=== PATIENT | male | born 1945 | race African-American/Black ===

== ENCOUNTER 2017-01-08 17:43 | Emergency (ER) | payer OTHER ==
[~2017-01-08] VITALS: Ht 180.3 cm; Wt 158.8 kg
[2017-01-08 17:52] VITALS: BP 143/84
--- NOTE | 2017-01-08 18:05 | ED GENERAL ADULT ---
History of Present Illness General Chief Complaint: Lower Extremity Problems Stated Complaint: RT LEEG PIAN AND SWELLING ?BUG BITE Source: patient Exam Limitations: no limitations Vital Signs & Intake/Output Vital Signs & Intake/Output Vital Signs Date Time Temp Pulse Resp B/P B/P Pulse O2 O2 Flow FiO2 Mean Ox Delivery Rate 01/08 1752 97.9 92 18 143/84 98 Room Air Allergies Coded Allergies: NO KNOWN ALLERGIES (01/20/12) Per STS nurse Lety. -- Vicky 01/20/12 Triage Note: PT STATES THAT HE WAS OUTSIDE MONDAY WHEN HE FELT SOMETHING BITE HIM ON HIS R MENON,. COMPLAINS OF REDNESS AND SWELLING THAT STARTED MONDAY. DENIES PAIN AT THIS TIME. Triage Nurses Notes Reviewed? yes HPI: 71 y/o male with h/o HTN and HLD presenting with RLE pain/redness/swelling s/p being bite by an insect 2 days ago. States that he felt the bite occur, but did not actually see an insect. Reports the insect bite site has been draining clear to yellow liquid. Denies fevers, nausea, vomiting. No h/o diabetes. (GETACHEW VANG,YUMIKO) Reconcile Medications Cephalexin (Keflex) 500 MG CAPSULE 1 CAP PO 4 TIMES/DAY cellulitis (JOSE EDUARDO PADILLA,BATOOL) Past History Travel History Traveled to [place] past 21 day No Medical History Any Pertinent Medical History? 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 No (GETACHEW VANG,YUMIKO) Review of Systems Review of Systems Constitutional: Reports: no symptoms. EENTM: Reports: no symptoms. Respiratory: Reports: no symptoms. Cardiovascular: Reports: edema. Denies: chest pain, syncope. GI: Reports: no symptoms. Genitourinary: Reports: no symptoms. Musculoskeletal: Reports: no symptoms. Skin: Reports: see HPI, erythema. Neurological/Psychological: Reports: no symptoms. Hematologic/Endocrine: Reports: no symptoms. Immunologic/Allergic: Reports: no symptoms. (YUMIKO CHILEL PA-C) Physical Exam Physical Exam General Appearance: well developed/nourished, no apparent distress, alert, awake , comfortable Head: atraumatic Respiratory: normal breath sounds, lungs clear Cardiovascular: regular rate/rhythm, normal peripheral pulses Extremities: Subcentimeter wound to anterior lower aspect of RLE with clear drainaing and surroudning erythema. The RLE is edematous, with no increased warmth. No calf TTP, neg linh's sign. Palpable DP pulse. Neurologic/Psych: awake, alert, oriented x 3, normal gait, normal mood/affect Skin: warm/dry Core Measures ACS in differential dx? No CVA/TIA Diagnosis: No Severe Sepsis Present: No Septic Shock Present: No (YUMIKO CHILEL PA-C) Progress Differential Diagnoses I considered the following diagnoses in my evaluation of the patient: [ cellulitis vs DVT] Plan of Care: Exam consistent with cellulitis with source likely from insect bite. Will tx with keflex. Low concern for DVT has the pt has no h/o of blood clots, no recent surgery or travel, no hormone use, no cigarette smoking, no family h/o blodo clots, and the exam is consistent with infectious source of swelling. Initial ED EKG: none (YUMIKO CHILEL PA-C) Departure Departure Disposition: HOME OR SELF CARE Condition: Stable Clinical Impression Primary Impression: Cellulitis Referrals: AMRITA PADILLA,WINIFRED Garcia (PCP/Family) Additional Instructions: Take 500mg keflex 4 times daily for 7 days. Keep the wound clean and dry. Follow up with your primary care provider for re-evaluation. Return to the ER for any new or worsening symptoms. 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 I have also reviewed all the pertinent lab results and diagnostic results. I agree with the findings and the plan of care as documented in the PA's/RADIOPHONE OPERATOR's documentation. [] I have reviewed the ED Record and agree with the PA's/RADIOPHONE OPERATOR's documentation. [] Additions or exceptions (if any) to the PAs/RADIOPHONE OPERATOR's note and plan are summarized below: [] (JOSE EDUARDO PADILLA,BATOOL) Critical Care Note Critical Care Note Critical Care Time: non-applicable (GETACHEW VANG,YUMIKO)
[2017-01-08] MEDS ORDERED: KEFLEX500 M1 PO (18:25)
== END 2017-01-08 18:39 ==
LOC: ERH 17:43
DX: L03.115 Cellulitis of right lower limb (principal)

== ENCOUNTER 2017-07-11 09:25 | Inpatient (IN) | payer OTHER ==
[~2017-07-11] VITALS: Ht 172.7 cm; Wt 81.6 kg
[~2017-07-11 09:25] MED LIST: KEFLEX500 M1 PO; PRILOSEC OTC20 M1 PO; TAMSULOSIN HCL0.4 M1 PO
--- NOTE | 2017-07-11 09:56 | ED SYNCOPE COMPLAINT ---
History of Present Illness General Chief Complaint: Syncope and Near-Syncope Stated Complaint: SYNCOPE Source: patient, family, old records, EMS Exam Limitations: no limitations Allergies Coded Allergies: NO KNOWN ALLERGIES (01/20/12) Per STS nurse Lety. -- RoddyLindsay 01/20/12 Triage Note: PT BIBA FROM DR OFFICE AFTER HAVING 30 SECOND SYNCOPAL EPISODE THERE. PT DENIES CP/SOB. STATES HE HAS HAD THESE EPISODES IN THE PAST. HX OF TRIPLE BYPASS ON 05/30/17. HX OF A-FIB Triage Nurses Notes Reviewed? yes Timing: single episode today Precipitating Factors: none Context: became dizzy/fainted HPI: Mr Ames is a 72 y/o AA gentleman with a PMH of angina, HFrEF with LVEF 35% on recent echo, CAD evaluated at for those symptoms and found to have diffuse EKG changes, transferred to [facility] with follow-up cardiac catheterization revealing severe L main and triple-vessel disease, s/p triple vessel CABG on 06/04/2017 with LARSEN to LAD, vein graft to marginal and PDA, postprocedure, complicated with atrial fibrillation and renal insufficiency. Additional PMH includes GERD, achalasia of the esophagus, osteoporosis, diverticulosis, Medications at discharge from [facility] included amiodarone, valsartan, furosemide 40 MG, potassium supplementation, metoprolol 100 mg XL, aspirin and eliquis. He was BIBA from his ultrasound technol's office (Dr. Jarvis) today after a syncopal episode. His endorses a similar episode on June 09 while driving him to a follow -up appointment when he exhibited sudden onset generalized shaking, eyes rolled back, lasting 2 minutes with what she describes as a post ictal episode with fatigue. Follow-up workup at [facility] was unremarkable with no recurrence of symptoms. This morning while seated at the ultrasound technol's office he developed a lateral gaze and became unresponsive exhibiting what appeared to be a seizure, recovery noted within 30 secs. No tongue biting, loss of bowel or bladder function or postictal symptoms. No changes noted on EKG with sinus rhythm and RBBB, 97% on RA, accuchek 127. Patient's states that his systolic blood pressures at home run in the 110's but this morning was 94mmHg. His only recent complaints include fatigue and loss of appetite, current weight 292lbs down from 320lbs. ROS: He denies any headache, blurry vision, nausea, chest pain, palpitations, shortness of breath, recent symptoms of orthopnea/PND, worsening lower extremity swelling, fevers or chills. Echocardiogram from 06/04/2017 LVEF 40%, LVEF during cardiac catheterization 35% . (Enoc Brunson MD) Vital Signs & Intake/Output Vital Signs & Intake/Output Vital Signs Date Time Temp Pulse Resp B/P B/P Pulse O2 O2 Flow FiO2 Mean Ox Delivery Rate 07/11 1543 98.6 62 12 113/52 993 Room Air 07/11 1336 97.7 68 18 140/72 98 07/11 1217 99 Room Air 07/11 1116 66 18 135/71 99 Room Air 07/11 0932 97.0 67 20 97/53 95 Room Air Reconcile Medications Amiodarone (Cordarone) 200 MG TAB 100 MG PO DAILY CARDIAC (Reported) Apixaban (Eliquis) 2.5 MG TABLET 1 TAB PO BID BLOOD THINNER (Reported) Aspirin (Ecotrin*) 81 MG TABLET.DR 1 TAB PO DAILY CARDIAC (Reported) Atorvastatin Calcium 80 MG TABLET 1 TAB PO DAILY CHOLESTEROL (Reported) Esomeprazole (Nexium) 40 MG CAPSULE.DR 1 TAB PO DAILY GERD (Reported) Metoprolol Succ XL (Toprol XL) 100 MG TAB.ER.24H 1 TAB PO DAILY HTN (Reported ) Tamsulosin HCl 0.4 MG CAP.ER.24H 1 CAP PO DAILY URINE (Reported) Tamsulosin HCl (Flomax) 0.4 MG CAP.ER.24H 1 TAB PO DAILY BPH (Reported) (Albert Varela MD) Past History Travel History Traveled to [place] past 21 day No Medical History Any Pertinent Medical History? 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 No (Enoc Brunson MD) Review of Systems Review of Systems Constitutional: Reports: see HPI. EENTM: Reports: blurred vision. Respiratory: Reports: no symptoms. Cardiovascular: Reports: no symptoms. GI: Reports: no symptoms. Genitourinary: Reports: no symptoms. Musculoskeletal: Reports: see HPI. Skin: Reports: no symptoms. Neurological/Psychological: Reports: see HPI. (Enoc Brunson MD) Review of Systems All Other Systems: Reviewed and Negative (Albert Varela MD) Physical Exam Physical Exam General Appearance: no apparent distress, alert Head: normal appearance Eyes: Bilateral: PERRL, EOMI. Ears, Nose, Throat: normal ENT inspection, hearing grossly normal Neck: full range of motion, unable to assess JVD due to body habitus Respiratory: normal breath sounds, no respiratory distress, lungs clear, distant breath sounds Cardiovascular: regular rate/rhythm Gastrointestinal: normal bowel sounds, soft, non-tender Cranial Nerves: normal hearing, normal speech, PERRL Core Measures ACS in differential dx? Yes CVA/TIA Diagnosis: No Sepsis Present: No Sepsis Focused Exam Completed? No (Enoc Brunson MD) Physical Exam Back: normal inspection, normal range of motion, no vertebral tenderness Extremities: normal inspection, normal capillary refill, normal range of motion, no edema Psychiatric: awake, alert, oriented x 3 Coordination/Gait: normal finger to nose Motor/Sensory: no motor/sensory deficits Reflexes: 2+: bicep (R), bicep (L), tricep (R), tricep (L). Skin: intact, normal color, warm/dry Lymphatic: no anterior cervical susanne (Albert Varela MD) Progress Differential Diagnosis: orthostatic syncope, arrhythmia (Enoc Brunson MD) Plan of Care: Orders Procedure Date/time Status Heart Healthy Diet 07/11 L Active TROPONIN LEVEL 07/11 2300 Active EKG 07/11 2300 Active TROPONIN LEVEL 07/11 1700 Active EKG 07/11 1700 Active ELECTROENCEPHALOGRAM 07/11 1322 Active Patient Data 07/[address] in observation 07/11 1156 Active Misc Message 07/11 1156 Active ED Holding Orders 07/11 1156 Active Code Status 07/11 1156 Active Add-on Test (ER Only) 07/11 1027 Active Intake & Output 07/11 1012 Active PROTHROMBIN TIME 07/11 943 Complete D-DIMER 07/11 943 Complete THYROID STIMULATING HORMONE 07/11 942 Complete TROPONIN LEVEL 07/11 942 Complete TOTAL IRON BINDING CAPACITY 07/11 942 Complete PROLACTIN 07/11 942 Complete MAGNESIUM 07/11 942 Complete LIPID PANEL 07/11 942 Complete FREE T4 07/11 942 Complete FERRITIN 07/11 942 Complete SERUM IRON 07/11 942 Complete COMPREHENSIVE METABOLIC PANEL 07/11 942 Complete CBC WITHOUT DIFFERENTIAL 07/11 942 Complete EKG 07/11 936 Active House Staff 07/11 UNK Active Current Medications Sig/Melanie Start time Last Medication Dose Stop Time Status Admin Aspirin Buffered 81 MG DAILY 07/12 1000 AC (Ecotrin) Tamsulosin HCl 0.4 MG DAILY 07/12 1000 CAN (Flomax) Tamsulosin HCl 0.4 MG DAILY 07/12 1000 AC (Flomax) Omeprazole 40 MG DAILY AC 07/12 0700 AC (Prilosec) Metoprolol Succinate 100 MG DAILY 07/11 1555 AC (Toprol Xl) Atorvastatin Calcium 80 MG DAILY 07/11 1554 AC (Lipitor) Amiodarone HCl 100 MG DAILY 07/11 1553 AC (Cordarone) Apixaban 2.5 MG BID 07/11 155 AC (Eliquis) Sodium Chloride 1,000 ML BOLUS ONE 07/11 0845 CAN (Normal Saline 0.9%) 07/11 1044 Laboratory Tests 07/11/17 1113: Anion Gap 16, Estimated GFR 35 L, BUN/Creatinine Ratio 10.0, Glucose 98, Calcium 9.2, Magnesium 1.9, Iron 51, TIBC 335, % Saturation 15 L, Ferritin 192.0, Total Bilirubin 0.9, AST 44, ALT 47, Alkaline Phosphatase 106, Troponin I 0.02, Total Protein 7.9, Albumin 4.2, Globulin 3.7, Albumin/Globulin Ratio 1.1, Triglycerides 138, Cholesterol 90, LDL Cholesterol, Calc 32 L, HDL Cholesterol 31 L, Cholesterol/HDL Ratio 3, TSH 2.460, Free T4 1.63, Prolactin 12.4, PT 16.2 H, INR 1.55 H, D-Dimer High Sensitivty 1233 H, CBC w Diff NO MAN DIFF REQ, RBC 3.75 L, MCV 81.9, MCH 26.2 L, RDW 16.5 H, MPV 9.7, Gran % 46.5, Lymphocytes % 35.1, Monocytes % 12.6 H, Eosinophils % 3.2, Basophils % 2.6 H, Absolute Granulocytes 2.2, Absolute Lymphocytes 1.6, Absolute Monocytes 0.6, Absolute Eosinophils 0.1, Absolute Basophils 0.1, PUBS MCHC 32.0 L Patient presented to the ED after a syncopal episode in the ultrasound technol's office this morning. Patient underwent CABG on 06/04/2017. One other syncopal episode in May with generalized tremors, ?? postictal state * Serial EKG and troponins to rule out ACS: 5 PM, 11 PM * Carotid Doppler to assess for stenosis or unstable plaque * Continuous telemetry monitoring to assess for underlying dysrhythmias in the context of recent CABG * Anemia and Acute kidney injury workup. ?? renal ultrasound vs ionotropic agent if worsening HFrEF * Cardiology consult placed with Dr. Veliz * Neurology consult placed with Dr. Randolph * Follow up recommendations on need for EEG per neuro (Enoc Brunson MD) Diagnostic Imaging: Viewed by Me: CT Scan. Discussed w/RAD: CT Scan. Radiology Impression: no acute abnormality Initial ED EKG: RBBB, nonspecific ST T wave chg Prior EKG: unchanged Rhythm Strip: normal sinus rhythm (Albert Varela MD) Departure Departure Time of Disposition: 1236 Disposition: STILL A PATIENT Condition: Stable Clinical Impression Primary Impression: Syncope Secondary Impressions: AMANUEL (acute kidney injury), Hypotension Referrals: Issac Gupta MD (PCP/Family) Departure Forms: Customer Survey General Discharge Information Observation Note Spoke With: Issac Gupta MD Physician Advisor Notified: PRITI HILARIO DO Place Patient In: Non-ED OBS Care Area Rationale for Observation: My rational for observation is as follows: Mr. Ames is presenting with syncopal episode with recent cardiac catheterization and follow-up CABG in May 2017. * Concern for dysrhythmia preceding the syncopal episode which would require telemetry monitoring, serial EKG and troponins to rule out ACS * Cardiology consult with possible subsequent EP workup * Carotid ultrasound to assess for stenosis/unstable plaque * Neurology consult to workup for potential seizure * EEG * Progressive renal failure which will require medication adjustment while monitoring blood pressure and heart rate (Enoc Brunson MD) Resident Co-Sign Statement Statement: ED Attending supervision documentation- x I saw and evaluated the patient. I have also reviewed all the pertinent lab results and diagnostic results. I agree with the findings and the plan of care as documented in the Resident's documentation. [] I have reviewed the ED Record and agree with the Resident's documentation. [] Additions or exceptions (if any) to the Resident's note and plan are summarized below: [] (Nichole PADILLA,Albert)
--- NOTE | 2017-07-11 11:17 | CT SCAN REPORT ---
EXAMINATION: CT HEAD WITHOUT CONTRAST CLINICAL INFORMATION: Syncope. Transient confusion. Assess for CVA versus bleed. COMPARISON: MRI scan of the brain 12/25/2014. TECHNIQUE: Contiguous axial imaging was performed from the skull base to vertex without intravenous administration of contrast. DLP: 620.93 mGy-cm FINDINGS: There is no evidence of acute intracranial hemorrhage or territorial infarction. No abnormal mass effect or midline shift is seen. Du to white matter differentiation is well preserved. No extra-axial fluid collections are identified. The ventricles and sulci are slightly commensurately prominent consistent with mild diffuse volume loss. There are scattered areas of low attenuation in the periventricular and subcortical white matter, consistent with chronic microvascular ischemic changes. The osseous structures and soft tissues are normal. There are atheromatous calcifications of the cavernous internal carotid arteries bilaterally. The mastoid air cells and visualized portions of the paranasal sinuses are well aerated. IMPRESSION: 1. There are no acute bleeds or territorial infarcts. 2. There is mild diffuse volume loss and there are sequelae of chronic microvascular ischemic disease.
[2017-07-11 11:37] LABS: ABSOLUTE BASOPHIL COUNT 0.1 /CUMM (0.0-0.2); ABSOLUTE EOSINOPHIL COUNT 0.1 /CUMM (0.0-0.7); ABSOLUTE GRANULOCYTE CT 2.2 /CUMM (1.4-6.5); ABSOLUTE LYMPH COUNT 1.6 /CUMM (1.2-3.4); ABSOLUTE MONOCYTE COUNT 0.6 /CUMM (0.10-0.60); BASOPHIL % 2.6 % (0.0-2.0); EOSINOPHIL % 3.2 % (0-5); GRANULOCYTE % 46.5 % (42.2-75.2); HEMATOCRIT 30.7 % (42-52); MEAN CORPUSCULAR HGB 26.2 PG (27.0-31.0); MEAN CORPUSCULAR VOLUME 81.9 FL (80.0-94.0); MEAN PLATELET VOLUME 9.7 FL (7.4-10.4); PLATELET COUNT 217 /CUMM (130-400); RBC DISTRIBUTION WIDTH 16.5 % (11.5-14.5); RED BLOOD CELL CT 3.75 /CUMM (4.70-6.10); WHITE BLOOD CELL COUNT 4.7 /CUMM (4.8-10.8)
[2017-07-11 11:42] LABS: PT 16.2 SEC (9.4-12.5)
--- NOTE | 2017-07-11 12:05 | Cons- Cardiology ---
General Information and HPI Consulting Request Date of Consult: 07/11/17 Requested By: Dr. 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 The patient was being seen for postoperative check by Dr. Valenzuela today in the office when he had an episode of lateral gaze along with shaking and the sacral episode lasting approximately 15 seconds. He rapidly recovered. His EKG demonstrated no acute changes and his blood sugar was normal at that time. He was then sent to [facility] for evaluation. The patient's stated that this is his second episode of syncope. The last one occurred approximately one week ago when she took him from [facility] to [facility] for a postoperative check. He was sitting in the car again had an episode of shaking with syncope lasting approximately a minute or so according to her. He was seen at the clinic and at that time his vital signs were normal. She does state that he intermittently is hypotensive with systolic blood pressure down into the 90s. According to the patient he denied any premonitory symptoms specifically chest pain shortness of breath aura or palpitations. The patient currently is resting comfortably on the stretcher without complaints. Of note is that the patient did develop renal insufficiency postoperatively with a creatinine of 1.8. Blood work obtained by Dr. Gupta yesterday demonstrated a creatinine of 2.4. He was instructed to discontinue his Lasix, potassium, Diovan with repeat blood work pending for next week. Allergies/Medications Allergies: Coded Allergies: NO KNOWN ALLERGIES (01/20/12) Per [facility] nurse Lety. Dominic Perry 01/20/12 Home Med List: Omeprazole Magnesium (Prilosec Otc) 20 MG TABLET.DR 1 TAB PO DAILY PRN ACID REFLUX (Reported) Tamsulosin HCl 0.4 MG CAP.ER.24H 1 CAP PO DAILY URINE (Reported) Current Medications: Current Medications Sig/Melanie Start time Last Medication Dose Route Stop Time Status Admin Sodium Chloride 1,000 ML BOLUS ONE 07/11 0935 DC IV 07/11 1044 Review of Systems Review of Systems: Eyes no blurred or double vision Ears no deafness or ringing Nose and throat no recurrent sinusitis Lungs per history of present illness Heart per history of present illness Abdomen no nausea vomiting Musculoskeletal occasional muscle and joint pains Psych no anxiety or depression Neuro without recurrent headache syncope with possible seizure noted today Endocrine no heat or cold intolerance Past History Travel History Traveled to [place] past 21 day No Medical History Neurological: NONE EENT: NONE Cardiovascular: CAD, hypertension, A-FIB Respiratory: NONE Gastrointestinal: GERD Hepatic: NONE Renal: NONE Musculoskeletal: NONE Psychiatric: NONE Endocrine: NONE Blood Disorders: NONE Cancer(s): 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 Surgical History Surgical History: CABG Psychosocial History ETOH Use: denies use Illicit Drug Use: denies illicit drug use Exam & Diagnostic Data Vital Signs and I&O Vital Signs Date Time Temp Pulse Resp B/P B/P Pulse O2 O2 Flow FiO2 Mean Ox Delivery Rate 07/11 1116 66 18 135/71 99 Room Air 07/11 0932 97.0 67 20 97/53 95 Room Air Intake & Output 07/11 1600 07/11 0800 07/11 0000 07/10 1600 07/10 0800 07/10 0000 Intake Total 250 Output Total Balance 250 Intake, IV 250 Patient 292 lb Weight Weight Reported by Patient Measurement Method Physical Exam: Patient is a well-developed obese male appearing in no acute distress HEENT is unremarkable Neck is supple there is no JVD Lungs are clear Heart regular rhythm S1 and S2 are normal no gallops or rubs 1/6 soft ejection murmur at the left sternal border Abdomen bowel sounds positive Extremities trace edema Labs/Brett Results: Laboratory Tests 07/11 1113 Chemistry Sodium Pending Potassium Pending Chloride Pending Carbon Dioxide Pending Anion Gap Pending BUN Pending Creatinine Pending BUN/Creatinine Ratio Pending Glucose Pending Calcium Pending Magnesium Pending Iron Pending TIBC Pending % Saturation Pending Ferritin Pending Total Bilirubin Pending AST Pending ALT Pending Alkaline Phosphatase Pending Troponin I Pending Total Protein Pending Albumin Pending Globulin Pending Albumin/Globulin Ratio Pending Triglycerides Pending Cholesterol Pending LDL Cholesterol, Calc Pending HDL Cholesterol Pending Cholesterol/HDL Ratio Pending TSH Pending Free T4 Pending Prolactin Pending Coagulation PT Pending INR Pending D-Dimer High Sensitivty Pending Hematology CBC w Diff NO MAN DIFF REQ WBC (4.8 - 10.8 /CUMM) 4.7 L RBC (4.70 - 6.10 /CUMM) 3.75 L Hgb (14.0 - 18.0 G/DL) 9.8 L Hct (42 - 52 %) 30.7 L MCV (80.0 - 94.0 FL) 81.9 MCH (27.0 - 31.0 PG) 26.2 L RDW (11.5 - 14.5 %) 16.5 H Plt Count (130 - 400 /CUMM) 217 MPV (7.4 - 10.4 FL) 9.7 Gran % (42.2 - 75.2 %) 46.5 Lymphocytes % (20.5 - 51.1 %) 35.1 Monocytes % (1.7 - 9.3 %) 12.6 H Eosinophils % (0 - 5 %) 3.2 Basophils % (0.0 - 2.0 %) 2.6 H Absolute Granulocytes (1.4 - 6.5 /CUMM) 2.2 Absolute Lymphocytes (1.2 - 3.4 /CUMM) 1.6 Absolute Monocytes (0.10 - 0.60 /CUMM) 0.6 Absolute Eosinophils (0.0 - 0.7 /CUMM) 0.1 Absolute Basophils (0.0 - 0.2 /CUMM) 0.1 PUBS MCHC (33.0 - 37.0 G/DL) 32.0 L Diagnostic Data EKG Results Sinus rhythm, right bundle branch block, left anterior hemiblock (bifascicular block) nonspecific T-wave changes Other Results CT of the head IMPRESSION: 1. There are no acute bleeds or territorial infarcts. 2. There is mild diffuse volume loss and there are sequelae of chronic microvascular ischemic disease. Assessment/Plan Assessment/Plan 1. Coronary disease status post coronary bypass surgery 05/30/2017 with LARSEN to the LAD, saphenous vein graft to the obtuse marginal and PDA 2. Postoperative atrial fibrillation on amiodarone L Sophia 3. Postoperative renal insufficiency slightly worse on recent blood work 4. Hypertension by history now with evidence of borderline hypotension 5. Obesity 6. Syncopal episodes of uncertain etiology. Concerns are for possible seizure disorder given his presentation. Also of concern is the fact that he does have a bifascicular block on EKG and may develop bradycardia arrhythmias. Given his cardiomyopathy with ejection fraction of 35-40% I'm also concerned that he may be having episodes of ventricular tachycardia. Recommendations 1. The patient will be admitted to telemetry 2. Obtain serial troponins 3. Carotid ultrasound 4. Would consider a neuro consult to rule out seizure disorder 5. Continue his current medications 6. Given his presentation with recurrent syncope if no other etiology is found he will require an EP evaluation versus a lifevest. 7. Monitor renal function Thank you for allowing [facility] to participate in the care of your patient. Consult Acknowledgment - Thank you for your consult request.
--- NOTE | 2017-07-11 12:49 | History & Physical ---
Gary PADILLA,[facility] 07/11/17 1248: General Information and HPI MD Statement: I have seen and personally examined SUMAYA BAÑUELOS and documented this H&P. The patient is a 72 year old M who presented with a patient stated chief complaint of syncope. Source of Information: patient, family Exam Limitations: no limitations History of Present Illness: This is a 72 y/o pleasent gentleman with a PMH of angina, HFrEF with LVEF 35% on recent echo, CAD evaluated at for those symptoms and found to have diffuse EKG changes, transferred to [facility] with follow-up cardiac catheterization revealing severe L main and triple-vessel disease, s/p triple vessel CABG on 06/04/2017 with LARSEN to LAD, vein graft to marginal and PDA, postprocedure, complicated with atrial fibrillation and renal insufficiency, GERD, achalasia of the esophagus, osteoporosis, diverticulosis, Medications at discharge from [facility] included amiodarone, valsartan, furosemide 40 MG, potassium supplementation, metoprolol 100 mg XL, aspirin and eliquis. 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 Jarvis) today after a syncopal episode. His endorses a similar episode on June 09 while driving him to a follow -up appointment when he exhibited sudden onset generalized shaking, eyes rolled back, lasting 2 minutes with what she describes as a post ictal episode with fatigue. Follow-up workup at [facility] was unremarkable with no recurrence of symptoms. This morning while seated at the entry engineer's office he became unresponsive exhibiting what appeared to be a seizure, with a lateral gaze noted, this episode was transient and lasted 1 minute. No tongue biting, loss of bowel or bladder function. No changes noted on EKG with sinus rhythm and RBBB, 97% on RA, accuchek 127. Patient's states that his systolic blood pressures at home run in the 110's but this morning was 94mmHg. His only recent complaints include fatigue and loss of appetite, current weight 292lbs down from 320lbs. Denies any headache, blurry vision, nausea, chest pain, palpitations, shortness of breath, recent symptoms of orthopnea/PND, worsening lower extremity swelling, fevers or chills. Echocardiogram from 06/04/2017 LVEF 40%, LVEF during cardiac catheterization 35% . Allergies/Medications Allergies: Coded Allergies: NO KNOWN ALLERGIES (01/20/12) Per [facility] nurse Lety. -- Vicky 01/20/12 Home Med list Amiodarone (Cordarone) 200 MG TAB 100 MG PO DAILY CARDIAC (Reported) Apixaban (Eliquis) 2.5 MG TABLET 1 TAB PO BID BLOOD THINNER (Reported) Aspirin (Ecotrin*) 81 MG TABLET.DR 1 TAB PO DAILY CARDIAC (Reported) Atorvastatin Calcium 80 MG TABLET 1 TAB PO DAILY CHOLESTEROL (Reported) Esomeprazole (Nexium) 40 MG CAPSULE.DR 1 TAB PO DAILY GERD (Reported) Metoprolol Succ XL (Toprol XL) 100 MG TAB.ER.24H 1 TAB PO DAILY HTN (Reported ) Tamsulosin HCl 0.4 MG CAP.ER.24H 1 CAP PO DAILY URINE (Reported) Tamsulosin HCl (Flomax) 0.4 MG CAP.ER.24H 1 TAB PO DAILY BPH (Reported) Past History Travel History Traveled to [place] past 21 day No Medical History Neurological: NONE EENT: NONE Cardiovascular: CAD, hypertension, A-FIB Respiratory: NONE Gastrointestinal: GERD Hepatic: NONE Renal: NONE Musculoskeletal: NONE Psychiatric: NONE Endocrine: NONE Blood Disorders: NONE Cancer(s): NONE 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 EENTM: Reports: no symptoms. Cardiovascular: Reports: syncope. Respiratory: Reports: no symptoms. GI: Reports: no symptoms. Genitourinary: Reports: no symptoms. Musculoskeletal: Reports: no symptoms. Skin: Reports: no symptoms. Neurological/Psychological: Reports: no symptoms. Hematologic/Endocrine: Reports: no symptoms. Immunologic/Allergic: Reports: no symptoms. Exam & Diagnostic Data Last 24 Hrs of Vital Signs/I&O Vital Signs Date Time Temp Pulse Resp B/P B/P Pulse O2 O2 Flow FiO2 Mean Ox Delivery Rate 07/11 1543 98.6 62 12 113/52 993 Room Air 07/11 1336 97.7 68 18 140/72 98 07/11 1217 99 Room Air 07/11 1116 66 18 135/71 99 Room Air 07/11 0932 97.0 67 20 97/53 95 Room Air Intake & Output 07/11 1600 07/11 0800 07/11 0000 Intake Total 250 Output Total Balance 250 Intake, IV 250 Patient 132.449 kg Weight Weight Reported by Patient Measurement Method Physical Exam General Appearance Alert, Oriented X3, Cooperative Skin No Significant Lesion Skin Temp/Moisture Exam: Warm/Dry Sepsis Skin Exam (color): Normal for Ethnicity HEENT Atraumatic, PERRLA, Mucous Membr. moist/pink Neck Supple, No JVD Lymphatic Cervical nl Cardiovascular Regular Rate, Normal S1, Normal S2 Lungs Clear to Auscultation, Normal Air Movement Abdomen Normal Bowel Sounds, Soft, No Tenderness Neurological Normal Speech, Strength at 5/5 X4 Ext, Normal Tone, Sensation Intact, Cranial Nerves 3-12 NL, Reflexes 2+ Extremities No Clubbing, No Cyanosis, SLIGHT +1 pitting edema b/l Vascular Pulses Symmetrical Diagnostic Data EKG Results Sinus rhythm, right bundle branch block, left anterior hemiblock (bifascicular block) nonspecific T-wave changes Other Results CT of the head IMPRESSION: 1. There are no acute bleeds or territorial infarcts. 2. There is mild diffuse volume loss and there are sequelae of chronic microvascular ischemic disease. 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 No seizure-like activity was noted, neither was postictal confusion. Impression * Syncopal episode. Patient's extensive cardiac history including his bifascicular block is concerning for a cardiac etiology being the cause of patient's syncopal episode. She'll also be noted that patient with ischemic cardiomyopathy and a depressed ejection fraction around 35% have an increased risk of developing ventricular arrhythmias which could dispose patient to syncopal episode. Even though there was a mention of lateral gaze, it is unlikely that patient had a seizure activity as there was no shaking or tremor- like activity noted, bowel or urinary incontinence, tongue biting or the common postictal confusion. Vasovagal syncope always a possible etiology however the lack of prodromal symptoms and an extensive cardiac history including conduction abnormalities in this patient makes this etiology a low possibility, as will be more of a diagnosis of exclusion. * Renal insufficiency. Not clear if this is AMANUEL, as for longtime patient baseline was 1.0 until post operative CABG phase about a month ago when creatinine was 1.6. Was likely causes include contrast and postoperative kidney injury, cardiorenal CHF, or medication induced. * Atrial fibrillation on rhythm control with amiodarone and apixaban for anticoagulation * History of ischemic cardiomyopathy and EF of 35-40% Acute on chronic Anemia. Normocytic. No acute bleeding. Will continue to trend, Iron studies? Plan Place at telemetry for close cardiac monitoring Initial troponin negative will trend x2 with EKG Continue all cardiac meds Cardiology is on board, will continue to follow recommendation Will trend BEP to monitor renal function and avoid any nephrotoxic agents Follow-up on EEG per neurology recommendation CODE STATUS: DNR/DNI DVT prophylaxis: Addressed by apixaban As Ranked By This Provider Problem List: 1. Syncope 2. AMANUEL (acute kidney injury) Core Measures/Misc (03/05) Acute Coronary Syndrome ACS Diagnosis: No Congestive Heart Failure Congestive Heart Failure Diagnosis No Cerebrovascular Accident CVA/TIA Diagnosis: No VTE (View Protocol) VTE Risk Factors Acute Medical Illness No Mechanical VTE Prophylaxis d/t N/A MechProphylax Ordered No VTE Pharm Prophylaxis d/t NA PharmProphylax ordered Sepsis (View protocol) Sepsis Present: No [facility]21: Attending MD Review Statement Attending Statement Attending MD Statement: examined this patient, discuss w/resident/PA/DISTRICT SCOUT EXECUTIVE, agreed w/resident/PA/DISTRICT SCOUT EXECUTIVE, discussed with family, reviewed EMR data (avail), discussed with nursing, discussed with case mgmt, reviewed images, amended to note Attending Assessment/Plan: Seen and examined independently Discussed with customs and immigration officer, and pt in detail Patient is a well-developed obese male appearing in no acute distress HEENT is unremarkable Neck is supple there is no JVD Lungs are clear Heart regular rhythm S1 and S2 are normal no gallops or rubs 1/6 soft ejection murmur at the left sternal border Abdomen bowel sounds positive Extremities trace edema IMPRESSION * Syncopal episode with prob seizure, Diff dx syncope, vs possibly seizure, vs VT, Bradyarrthmia etc * Recent CABG with Coronary disease status post coronary bypass surgery 2016 with LARSEN to the LAD, saphenous vein graft to the obtuse marginal and PDA * Post op Afib on amiodarone * HTN * OBesit * 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
[2017-07-11] MEDS ORDERED: AMIODARONE HCL200 M1 PO (13:11)
[2017-07-11] MEDS ORDERED: ELIQUIS2.5 M1 PO (13:12)
[2017-07-11] MEDS ORDERED: ATORVASTATIN CA80 M1 PO (13:13)
[2017-07-11] MEDS ORDERED: ASPIRIN EC81 M1 PO (13:13)
[2017-07-11] MEDS ORDERED: NEXIUM40 M1 PO (13:14)
[2017-07-11] MEDS ORDERED: TOPROL XL100 M1 PO (13:14)
[2017-07-11] MEDS ORDERED: FLOMAX0.4 M1 PO (13:15)
--- NOTE | 2017-07-11 13:17 | Cons- Neurology ---
General Information and HPI Consulting Request Date of Consult: 07/11/17 Requested By: Alonso PADILLA,Issac Garcia History of Present Illness: 72-year-old male admitted following an episode of altered consciousness. The patient is now approximately 6 weeks status post triple-vessel coronary artery bypass graft and brief postoperative atrial fibrillation. He has a known ejection fraction of 35-40%. This was his first cardiology office follow-up when, in the presence of his and physician, he became briefly unresponsive, eyes rolled back or per chart, questionably deviated to the left. He had some tremulousness of the upper extremities although the history did not suggest clonic movements. The episode lasted for 15-30 seconds and resolved spontaneously. There was no reported tongue biting, incontinence or significant postictal confusion, to the best of the history that I could obtain. He has no history of seizure, stroke or cerebral scar. His reports that his blood pressure has intermittently been running low, in the range of 90 systolic. Allergies/Medications Allergies: Coded Allergies: NO KNOWN ALLERGIES (01/20/12) Per [facility] nurse Lety. -- Vicky 01/20/12 Home Med List: Omeprazole Magnesium (Prilosec Otc) 20 MG TABLET.DR 1 TAB PO DAILY PRN ACID REFLUX (Reported) Tamsulosin HCl 0.4 MG CAP.ER.24H 1 CAP PO DAILY URINE (Reported) Review of Systems Review of Systems: Negative for recent trauma, fever, chills, rash, diplopia, dysphagia, vomiting, vertigo, gait ataxia, joint inflammation or bleeding disturbance Past History Travel History Traveled to [place] past 21 day No Medical History Neurological: NONE EENT: NONE Cardiovascular: CAD, hypertension, A-FIB Respiratory: NONE Gastrointestinal: GERD Hepatic: NONE Renal: NONE Musculoskeletal: NONE Psychiatric: NONE Endocrine: NONE Blood Disorders: NONE Cancer(s): NONE 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 He was awake, alert and cooperative. Speech was fluent. He was oriented. He knew the name of the president. Pupils were equal. Extraocular movements were full. There was no nystagmus. There was no field cut. Face was symmetric. Hearing was grossly normal. Tongue was midline. Motor examination showed no drift of the upper extremities. There was no gross lateralizing weakness. Deep tendon reflexes were symmetric. Plantar responses were flexor. There was no ataxia [id number] testing. Sensory examination was normal to light touch. The gait was not evaluated. Assessment/Plan Assessment: By history, Mr. Ambriz's presentation is more suggestive of syncope as opposed to seizure. His imaging is normal and his examination is nonfocal. Contributory factors syncope could be his relative hypotension, dehydration or perhaps cardiac arrhythmia. Recommendations: We would recommend brief observation and telemetry. He will be seen and followed by cardiology. An EEG would also be requested we will follow along with medical team. Please feel free to call with any further questions. Consult Acknowledgment - Thank you for your consult request.
--- NOTE | 2017-07-11 13:33 | ULTRASOUND REPORT ---
EXAMINATION: US DUPLEX CAROTID AND VERTEBRAL CLINICAL INFORMATION: 2 syncopal episodes, evaluate for carotid stenosis. COMPARISON: There are no prior studies for comparison. TECHNIQUE: Real-time ultrasound and Doppler techniques (integrating B-mode 2D vascular images, Doppler spectral analysis and color flow Doppler imaging) were utilized to interrogate the extracranial carotid and vertebral arteries bilaterally. The degree of stenosis determined by criteria similar to NASCET. FINDINGS: Right carotid system morphology: Calcification is present within the proximal right ICA, near the level of the bifurcation extending into the right ICA. No additional focal areas of significant calcified plaque are noted. The waveforms for the common carotid artery and internal and external carotid arteries are within normal limits with strong upstrokes and no broadening. Velocities (all velocities are stated in centimeters per second units): Right proximal CCA: PSV: 97; EDV: 27 Right distal CCA: PSV: 103; EDV: 27 Right proximal ICA: PSV: 124; EDV 37 Right mid ICA: PSV: 100; EDV: 30 Right distal ICA: PSV: 67; EDV: 23 Right ECA: PSV: 80; EDV 20 Antegrade flow is demonstrated within the right vertebral artery. Left carotid system morphology: Small calcifications are present at the carotid bulb and proximal ICA. Intimal thickening is present within the distal CCA. The waveforms for the common carotid artery and internal and external carotid arteries are within normal limits with strong upstrokes and no broadening. Velocities (all velocities are stated in centimeters per second units): Left proximal CCA: PSV: 107; EDV: 26 Left distal CCA: PSV: 94; EDV: 24 Left proximal ICA: PSV: 112; EDV 30 Left mid ICA: PSV: 87; EDV: 35 Left distal ICA: PSV: 111; EDV: 44 Left ECA: PSV: 136; EDV 18 Antegrade flow is demonstrated within the left vertebral artery. IMPRESSION: 1. Minimal calcified atherosclerotic plaque is present within the bilateral carotid systems as described in detail above, with no significant luminal narrowing. 2. No significant carotid stenosis as determined by criteria similar to NASCET. 3. As noted, antegrade flow is demonstrated in both left and right vertebral arteries.
--- NOTE | 2017-07-11 17:58 | Admission Certification ---
Admission Certification Certification Statement - As attending physician, I certify that at the time of - admission, based on clinical presentation, severity of - symptoms, need for further diagnostic testing and - therapeutic interventions, and risk of adverse outcomes - without in-hospital treatment, in my clinical assessment, - this patient requires an acute hospital stay for a minimum - of two nights or longer. I have also considered psychsocial - factors such as support system, advanced age, financial - issues, cognitive issues, and failed out-patient treatments, - past re-admission history, safety of patient, and lack of - compliance as applicable. Specific rationale supporting this admission is: syncope and ihd
[2017-07-11 23:48] VITALS: BP 102/54
[2017-07-12 06:47] VITALS: BP 115/88
--- NOTE | 2017-07-12 07:31 | PN- Housestaff ---
See Addendum Subjective Follow-up For: syncope Tele-Events Since Last Visit: SR, 60-70 Subjective: No overnight events. Had CABG in May, triple vessel. Went well. Had one episode of syncope in late May. Yesterday, at [employer]'s office, felt nausea and prodrome, then lost consciosness. Woke up at [facility]. He feels well this AM. No furhter dizziness, CP, SOB or other issues. Review of Systems Constitutional: Reports: no symptoms. EENTM: Reports: no symptoms. Cardiovascular: Reports: see HPI. Respiratory: Reports: no symptoms. Gastrointestinal: Reports: no symptoms. Genitourinary: Reports: no symptoms. Musculoskeletal: Reports: no symptoms. Skin: Reports: no symptoms. Neurological/Psychological: Reports: no symptoms. Hematologic/Endocrine: Reports: no symptoms. Immunologic/Allergic: Reports: no symptoms. Objective Last 24 Hrs of Vital Signs/I&O Vital Signs Date Time Temp Pulse Resp B/P B/P Pulse O2 O2 Flow FiO2 Mean Ox Delivery Rate 07/12 0647 98.5 68 20 115/88 97 Room Air 07/11 2348 97.3 57 20 102/54 95 Room Air 07/11 2138 Room Air 07/11 2003 98.2 60 14 93/49 96 Room Air 07/11 1543 98.6 62 12 113/52 993 Room Air 07/11 1336 97.7 68 18 140/72 98 07/11 1217 99 Room Air 07/11 1116 66 18 135/71 99 Room Air 07/11 0932 97.0 67 20 97/53 95 Room Air Intake & Output 07/12 0800 07/12 0000 07/11 1600 Intake Total 760 25 250 Output Total 450 Balance 310 25 250 Intake, IV 400 25 250 Intake, Oral 360 Output, Urine 450 Patient 292 lb 292 lb Weight Weight Reported by Patient Measurement Method Physical Exam General Appearance: Alert, Oriented X3, Cooperative, No Acute Distress Cardiovascular: Regular Rate, Normal S1, Normal S2 Lungs: rhonci Abdomen: Normal Bowel Sounds, Soft, No Tenderness Extremities: No Edema Current Medications: Current Medications Sig/Melanie Start time Last Medication Dose Route Stop Time Status Admin Acetaminophen 500 MG Q6P PRN 07/11 2014 AC PO Acetaminophen 1,000 MG ONCE ONE 07/11 2014 DC N/A 1 UNIT IV 07/11 2028 Amiodarone HCl 100 MG DAILY 07/11 1553 AC 07/11 PO 1743 Apixaban 2.5 MG BID 07/11 1553 AC 07/12 PO 0020 Aspirin Buffered 81 MG DAILY 07/12 1000 AC PO Atorvastatin Calcium 80 MG DAILY 07/11 1554 AC 07/11 PO 1743 Metoprolol Succinate 50 MG DAILY 07/12 1500 AC PO Metoprolol Succinate 50 MG DAILY 07/12 1000 DC PO Metoprolol Succinate 100 MG DAILY 07/11 1555 DC 07/11 PO 1743 Omeprazole 40 MG DAILY AC 07/12 0700 AC 07/12 PO 0618 Sodium Chloride 1,000 ML Q20H 07/11 1830 AC 07/11 IV 07/12 1429 1904 Sodium Chloride 1,000 ML BOLUS ONE 07/11 0945 CAN IV 07/11 1044 Tamsulosin HCl 0.4 MG DAILY 07/12 1000 CAN PO Tamsulosin HCl 0.4 MG DAILY 07/12 1000 CAN PO Last 24 Hrs of Lab/Brett Results Last 24 Hrs of Labs/Mics: Laboratory Tests 07/11/17 2305: Troponin I 0.02 07/11/17 1751: Troponin I 0.03 07/11/17 1113: Anion Gap 16, Estimated GFR 35 L, BUN/Creatinine Ratio 10.0, Glucose 98, Calcium 9.2, Magnesium 1.9, Iron 51, TIBC 335, % Saturation 15 L, Ferritin 192.0, Total Bilirubin 0.9, AST 44, ALT 47, Alkaline Phosphatase 106, Troponin I 0.02, Total Protein 7.9, Albumin 4.2, Globulin 3.7, Albumin/Globulin Ratio 1.1, Triglycerides 138, Cholesterol 90, LDL Cholesterol, Calc 32 L, HDL Cholesterol 31 L, Cholesterol/HDL Ratio 3, TSH 2.460, Free T4 1.63, Prolactin 12.4, PT 16.2 H, INR 1.55 H, D-Dimer High Sensitivty 1233 H, CBC w Diff NO MAN DIFF REQ, RBC 3.75 L, MCV 81.9, MCH 26.2 L, RDW 16.5 H, MPV 9.7, Gran % 46.5, Lymphocytes % 35.1, Monocytes % 12.6 H, Eosinophils % 3.2, Basophils % 2.6 H, Absolute Granulocytes 2.2, Absolute Lymphocytes 1.6, Absolute Monocytes 0.6, Absolute Eosinophils 0.1, Absolute Basophils 0.1, PUBS MCHC 32.0 L Assessment/Plan Assessment: 72-year-old gentleman with an extensive cardiac history including CAD s/p CABG for LAD and triple-vessel disease 6 weeks ago, ischemic cardiomyopathy with an EF of 35-40%, atrial fibrillation on amiodarone and a lupus, renal insufficiency presented for evaluation 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 Problem list: 1. Syncope 2. Acute kidney injury 3. Normocytic anemia 4. Leukopenia #Syncope: Differential diagnosis includes neurocardiogenic versus seizure versus arrhythmia. There've been no arrhythmias overnight. Head CT was negative. Troponins 3 were negative. Carotid Doppler did not show any stenosis. LDL cholesterol excellent, HDL cholesterol a little low. -EEG -TTE -Appreciate cardiology recommendations -Appreciate neurology recommendations #Acute kidney injury: Patient's creatinine 1.9 yesterday. Unclear if this is his baseline. It is improving. -Holding ARB -Avoid nephrotoxic medications -Continue to monitor #Leukopenia: Unclear etiology.Unclear etiology. -Continue to monitor #Normocytic anemia: Mild. -Iron studies. #Chronic medical problems: -Continue other home medications DVT prophylaxis with apixiban Are healthy diet Full code Problem List: 1. Syncope Pain Ratin Pain Location: none Pain Goal: Remain pain free Pain Plan: see a/p Tomorrow's Labs & Rationales: cbc,bep
[2017-07-12 11:34] LABS: ABSOLUTE BASOPHIL COUNT 0.1 /CUMM (0.0-0.2); ABSOLUTE EOSINOPHIL COUNT 0.1 /CUMM (0.0-0.7); ABSOLUTE GRANULOCYTE CT 1.8 /CUMM (1.4-6.5); ABSOLUTE MONOCYTE COUNT 0.6 /CUMM (0.10-0.60); BASOPHIL % 1.8 % (0.0-2.0); EOSINOPHIL % 3.2 % (0-5); GRANULOCYTE % 39.9 % (42.2-75.2); HEMATOCRIT 27.2 % (42-52); MEAN CORPUSCULAR HGB 26.3 PG (27.0-31.0); MEAN CORPUSCULAR HGB CONC 32.1 G/DL (33.0-37.0); MEAN CORPUSCULAR VOLUME 82.1 FL (80.0-94.0); MEAN PLATELET VOLUME 10.1 FL (7.4-10.4); PLATELET COUNT 193 /CUMM (130-400); RBC DISTRIBUTION WIDTH 16.9 % (11.5-14.5); RED BLOOD CELL CT 3.31 /CUMM (4.70-6.10); WHITE BLOOD CELL COUNT 4.6 /CUMM (4.8-10.8)
--- NOTE | 2017-07-12 12:35 | PN- Cardiology ---
Subjective Subjective: Resting comfortably with no active complaints. Objective Vital Signs and I&Os Vital Signs Date Time Temp Pulse Resp B/P B/P Pulse O2 O2 Flow FiO2 Mean Ox Delivery Rate 07/12 1016 120/64 07/12 0647 98.5 68 20 115/88 97 Room Air 07/11 2348 97.3 57 20 102/54 95 Room Air 07/11 2138 Room Air 07/11 2002 98.2 60 14 93/49 96 Room Air 07/11 1543 98.6 62 12 113/52 993 Room Air 07/11 1336 97.7 68 18 140/72 98 Intake & Output 07/12 1600 07/12 0800 07/12 0000 07/11 1600 07/11 0800 07/11 0000 Intake Total 760 25 250 Output Total 450 Balance 310 25 250 Intake, IV 400 25 250 Intake, Oral 360 Output, Urine 450 Patient 292 lb 292 lb Weight Weight Reported by Patient Measurement Method Physical Exam: General: no apparent distress. Alert. Eyes: No obvious scleral icterus. HEENT: No jugular venous distention or abnormal jugular venous pulsations. Cardiovascular: Normal intensity S1/S2. Regular Respiratory: Lungs clear to auscultation bilaterally. Abdomen: Soft, nontender with no guarding or rebound tenderness. Musculoskeletal: No clubbing or cyanosis noted Skin: No obvious rashes or ulcerations. Neurologic: No gross focal deficits noted. Current Medications: Current Medications Sig/Melanie Start time Last Medication Dose Route Stop Time Status Admin Acetaminophen 500 MG Q6P PRN 07/11 2014 AC PO Acetaminophen 1,000 MG ONCE ONE 07/11 2014 DC N/A 1 UNIT IV 07/11 2028 Amiodarone HCl 100 MG DAILY 07/11 1553 AC 07/12 PO 1016 Apixaban 2.5 MG BID 07/11 1553 AC 07/12 PO 1016 Aspirin Buffered 81 MG DAILY 07/12 1000 AC 07/12 PO 1016 Atorvastatin Calcium 80 MG DAILY 07/11 1554 AC 07/12 PO 1016 Metoprolol Succinate 50 MG 2200 07/12 2200 AC PO Metoprolol Succinate 50 MG DAILY 07/12 1500 DC PO Metoprolol Succinate 50 MG DAILY 07/12 1000 DC PO Metoprolol Succinate 100 MG DAILY 07/11 1555 DC 07/11 PO 1743 Omeprazole 40 MG DAILY AC 07/12 0700 AC 07/12 PO 0618 Sodium Chloride 1,000 ML Q20H 07/11 1830 AC 07/11 IV 07/12 1429 1904 Sodium Chloride 1,000 ML BOLUS ONE 07/11 0945 CAN IV 07/11 1044 Tamsulosin HCl 0.4 MG DAILY 07/12 1000 CAN PO Tamsulosin HCl 0.4 MG DAILY 07/12 1000 CAN PO Results Last 48 Hrs of Labs/Mics: Laboratory Tests 07/12/17 1040: Anion Gap 13, Estimated GFR 42 L, BUN/Creatinine Ratio 11.3, Iron 32 L, TIBC 303, Ferritin Pending, CBC w Diff NO MAN DIFF REQ, RBC 3.31 L, MCV 82.1, MCH 26.3 L, MCHC 32.1 L, RDW 16.9 H, MPV 10.1, Gran % 39.9 L, Lymphocytes % 42.8 , Monocytes % 12.3 H, Eosinophils % 3.2, Basophils % 1.8, Absolute Granulocytes 1.8, Absolute Lymphocytes 2.0, Absolute Monocytes 0.6, Absolute Eosinophils 0.1, Absolute Basophils 0.1 07/11/17 2305: Troponin I 0.02 07/11/17 1751: Troponin I 0.03 07/11/17 1113: Anion Gap 16, Estimated GFR 35 L, BUN/Creatinine Ratio 10.0, Glucose 98, Calcium 9.2, Magnesium 1.9, Iron 51, TIBC 335, % Saturation 15 L, Ferritin 192.0, Total Bilirubin 0.9, AST 44, ALT 47, Alkaline Phosphatase 106, Troponin I 0.02, Total Protein 7.9, Albumin 4.2, Globulin 3.7, Albumin/Globulin Ratio 1.1, Triglycerides 138, Cholesterol 90, LDL Cholesterol, Calc 32 L, HDL Cholesterol 31 L, Cholesterol/HDL Ratio 3, TSH 2.460, Free T4 1.63, Prolactin 12.4, PT 16.2 H, INR 1.55 H, D-Dimer High Sensitivty 1233 H, CBC w Diff NO MAN DIFF REQ, RBC 3.75 L, MCV 81.9, MCH 26.2 L, RDW 16.5 H, MPV 9.7, Gran % 46.5, Lymphocytes % 35.1, Monocytes % 12.6 H, Eosinophils % 3.2, Basophils % 2.6 H, Absolute Granulocytes 2.2, Absolute Lymphocytes 1.6, Absolute Monocytes 0.6, Absolute Eosinophils 0.1, Absolute Basophils 0.1, PUBS MCHC 32.0 L Recent Imaging Studies: Telemetry tracings were personally reviewed and shows sinus rhythm with first- degree AV block Carotid US: 1. Minimal calcified atherosclerotic plaque is present within the bilateral carotid systems as described in detail above, with no significant luminal narrowing. 2. No significant carotid stenosis as determined by criteria similar to NASCET. 3. As noted, antegrade flow is demonstrated in both left and right vertebral arteries. Assessment/Plan Assessment/Plan 1. Coronary disease status post coronary bypass surgery 05/30/2017 with LARSEN to the LAD, saphenous vein graft to the obtuse marginal and PDA 2. Postoperative atrial fibrillation on amiodarone/Eliquis 3. Postoperative renal insufficiency slightly worse on recent blood work 4. Hypertension by history now with evidence of borderline hypotension 5. Obesity 6. Syncopal episodes of uncertain etiology. 7. Ischemic cardiomyopathy with ejection fraction 35-40% 8. Conduction disease by ECG with bifascicular block Patient remains hemodynamically stable. Serial troponins were negative. No significant carotid obstruction by ultrasound. No evidence of significant bradycardia arrhythmia by telemetry. EEG is pending. Patient will likely be a candidate for outpatient event monitor/loop recorder versus possible outpatient EP study; if EF is less than 35% in the future despite his recent revascularization he would be considered for a defibrillator. While he does have evidence of conduction disease by ECG unless we can confirm true bradycardia arrhythmia a pacemaker is not currently indicated. Tray Lane MD [facility] Continue telemetry? Yes
[2017-07-12 14:58] VITALS: BP 138/72
[2017-07-12 22:32] VITALS: BP 110/80
[2017-07-13 07:48] LABS: ABSOLUTE BASOPHIL COUNT 0.1 /CUMM (0.0-0.2); ABSOLUTE EOSINOPHIL COUNT 0.1 /CUMM (0.0-0.7); ABSOLUTE GRANULOCYTE CT 1.6 /CUMM (1.4-6.5); ABSOLUTE LYMPH COUNT 1.7 /CUMM (1.2-3.4); ABSOLUTE MONOCYTE COUNT 0.4 /CUMM (0.10-0.60); BASOPHIL % 1.3 % (0.0-2.0); EOSINOPHIL % 3.3 % (0-5); GRANULOCYTE % 41.1 % (42.2-75.2); MEAN CORPUSCULAR HGB 25.7 PG (27.0-31.0); MEAN CORPUSCULAR HGB CONC 31.6 G/DL (33.0-37.0); MEAN CORPUSCULAR VOLUME 81.3 FL (80.0-94.0); MEAN PLATELET VOLUME 10.4 FL (7.4-10.4); PLATELET COUNT 208 /CUMM (130-400); RBC DISTRIBUTION WIDTH 17.1 % (11.5-14.5); RED BLOOD CELL CT 3.44 /CUMM (4.70-6.10); WHITE BLOOD CELL COUNT 3.9 /CUMM (4.8-10.8)
--- NOTE | 2017-07-13 08:14 | PN- Housestaff ---
Subjective Follow-up For: syncope Tele-Events Since Last Visit: SR 60-75 Subjective: No overnight events. Has no CP, sOB, abd pain, or other issues. Feels good, looking to go home. 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 Review of Systems Constitutional: Reports: no symptoms. EENTM: Reports: no symptoms. Cardiovascular: Reports: no symptoms. Respiratory: Reports: no symptoms. Gastrointestinal: Reports: no symptoms. Genitourinary: Reports: no symptoms. Musculoskeletal: Reports: no symptoms. Skin: Reports: no symptoms. Neurological/Psychological: Reports: no symptoms. Hematologic/Endocrine: Reports: no symptoms. Immunologic/Allergic: Reports: no symptoms. Objective Last 24 Hrs of Vital Signs/I&O Vital Signs Date Time Temp Pulse Resp B/P B/P Pulse O2 O2 Flow FiO2 Mean Ox Delivery Rate 07/12 2231 98.0 68 18 110/80 96 Room Air 07/129 68 110/80 07/12 1458 97.6 73 19 138/72 96 07/12 1016 120/64 Intake & Output 07/13 1600 07/13 0800 07/13 0000 Intake Total 120 120 Output Total 500 400 Balance -380 -280 Intake, Oral 120 120 Output, Urine 500 400 Physical Exam General Appearance: Alert, Oriented X3, Cooperative, No Acute Distress Cardiovascular: Regular Rate, Normal S1, Normal S2 Lungs: Clear to Auscultation Abdomen: Normal Bowel Sounds, Soft, No Tenderness Extremities: No Edema Current Medications: Current Medications Sig/Melanie Start time Last Medication Dose Route Stop Time Status Admin Acetaminophen 500 MG Q6P PRN 07/11 2014 AC PO Amiodarone HCl 100 MG DAILY 07/11 1553 AC 07/12 PO 1016 Apixaban 2.5 MG BID 07/11 1553 AC 07/12 PO 2124 Aspirin Buffered 81 MG DAILY 07/12 1000 AC 07/12 PO 1016 Atorvastatin Calcium 80 MG DAILY 07/11 1554 AC 07/12 PO 1016 Docusate Sodium 100 MG DAILY 07/12 2145 AC 07/12 PO 2151 Metoprolol Succinate 50 MG 0 07/12 2199 AC 07/12 PO 2129 Metoprolol Succinate 50 MG DAILY 07/12 1500 DC PO Omeprazole 40 MG DAILY AC 07/12 0700 AC 07/13 PO 0537 Senna 187 MG AT BEDTIME 07/12 2199 AC 07/12 PO 2151 Senna/Docusate Sodium 1 TAB .STK-MED ONE 07/12 2147 DC PO 07/12 2148 Sodium Chloride 1,000 ML Q20H 07/11 1830 DC 07/11 IV 07/12 1429 1904 Last 24 Hrs of Lab/Brett Results Last 24 Hrs of Labs/Mics: Laboratory Tests 07/13/17 0623: Anion Gap 15, Estimated GFR 50 L, BUN/Creatinine Ratio 12.1, CBC w Diff NO MAN DIFF REQ, RBC 3.44 L, MCV 81.3, MCH 25.7 L, MCHC 31.6 L, RDW 17.1 H, MPV 10.4, Gran % 41.1 L, Lymphocytes % 43.0, Monocytes % 11.3 H, Eosinophils % 3.3 , Basophils % 1.3, Absolute Granulocytes 1.6, Absolute Lymphocytes 1.7, Absolute Monocytes 0.4, Absolute Eosinophils 0.1, Absolute Basophils 0.1 07/12/17 1040: Anion Gap 13, Estimated GFR 42 L, BUN/Creatinine Ratio 11.3, Iron 32 L, TIBC 303, Ferritin 161.0, CBC w Diff NO MAN DIFF REQ, RBC 3.31 L, MCV 82.1, MCH 26.3 L, MCHC 32.1 L, RDW 16.9 H, MPV 10.1, Gran % 39.9 L, Lymphocytes % 42.8, Monocytes % 12.3 H, Eosinophils % 3.2, Basophils % 1.8, Absolute Granulocytes 1.8, Absolute Lymphocytes 2.0, Absolute Monocytes 0.6, Absolute Eosinophils 0.1, Absolute Basophils 0.1 Assessment/Plan Assessment: 72-year-old gentleman with an extensive cardiac history including CAD s/p CABG for LAD and triple-vessel disease 6 weeks ago, ischemic cardiomyopathy with an EF of 35-40%, atrial fibrillation on amiodarone and a lupus, renal insufficiency presented for evaluation 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 Problem list: 1. Syncope 2. Acute kidney injury 3. Normocytic anemia 4. Leukopenia #Syncope: Differential diagnosis includes neurocardiogenic versus seizure versus arrhythmia versus heart failure. There've been no arrhythmias. Head CT was negative. Troponins 3 were negative. Carotid Doppler did not show any stenosis. LDL cholesterol excellent, HDL cholesterol a little low. Previous echocardiogram showed EF of 35%. He had recent CABG and therefore cardiology wants to wait to perform a repeat echocardiogram. -EEG -Appreciate cardiology recommendations -Appreciate neurology recommendations #Acute kidney injury: Patient's creatinine 1.9 on presentation. It is improving. -Holding ARB -Avoid nephrotoxic medications -Continue to monitor #Leukopenia: Unclear etiology. monocytes are high. He may need flow cytometry to rule out malignancy. -Continue to monitor #Normocytic anemia: Mild. Iron low, ferritin normal. Stool guiac positive, stool is dark. The patient had a colonoscopy with Dr. Prajapati on 12/26/2016 that showed mild diverticula and normal colonic mucosa to the cecum without any recurrent polyps. He had previously had benign polyps: 12/12/2013: Baseline colonoscopy to the cecum- moderate holt diverticulosis coli, left side greater than right, scant internal hemorrhoids, removal of 2 benign tubular adenomas (6 mm & 1.2 cm), plus removal of a 2 cm benign tubulovillous adenoma. He was advised at that time to have surveillance colonoscopy in December 2021. -Consider GI consult. #Chronic medical problems: -Continue other home medications DVT prophylaxis with apixiban Are healthy diet Full code Problem List: 1. Syncope Pain Ratin Pain Location: no pain Pain Goal: Remain pain free Pain Plan: see a/p Tomorrow's Labs & Rationales: bep, cbc
--- NOTE | 2017-07-13 09:12 | PN- Cardiology ---
Subjective Subjective: Telemetry reviewed. Sinus rhythm throughout. No significant bradycardia. Objective Vital Signs and I&Os Vital Signs Date Time Temp Pulse Resp B/P B/P Pulse O2 O2 Flow FiO2 Mean Ox Delivery Rate 07/12 2232 98.0 68 18 110/80 96 Room Air 07/12 2128 68 110/80 07/12 1458 97.6 73 19 138/72 96 07/12 1016 120/64 Intake & Output 07/13 1600 07/13 0800 07/13 0000 07/12 1600 07/12 0807/12 0000 Intake Total 120 120 600 760 25 Output Total 500 400 700 450 Balance -380 -280 -100 310 25 Intake, IV 200 400 25 Intake, Oral 120 120 400 360 Output, Urine 500 400 700 450 Patient 180 lb 292 lb Weight Weight Reported by Patient Measurement Method Physical Exam: Patient comfortable sitting at the edge of the bed. Admits to no complaints. Feeling better. Head normocephalic atraumatic Eyes sclera anicteric conjunctiva showed mild pallor extraocular muscles were normal Neck no jugular venous distention no thyroid masses no palpable lymph nodes Chest lungs were clear bilaterally Heart regular rhythm with a 1/6 systolic murmur Abdomen soft no organomegaly nontender And extremities no clubbing cyanosis or edema Neurological no gross motor or sensory deficits. Current Medications: Current Medications Sig/Melanie Start time Last Medication Dose Route Stop Time Status Admin Acetaminophen 500 MG Q6P PRN 07/11 2014 AC PO Amiodarone HCl 100 MG DAILY 07/11 1553 AC 07/12 PO 1016 Apixaban 2.5 MG BID 07/11 1553 AC 07/12 PO 2124 Aspirin Buffered 81 MG DAILY 07/12 1000 AC 07/12 PO 1016 Atorvastatin Calcium 80 MG DAILY 07/11 1554 AC 07/12 PO 1016 Docusate Sodium 100 MG DAILY 07/12 2145 AC 07/12 PO 2151 Metoprolol Succinate 50 MG 2200 07/12 2200 AC 07/12 PO 2129 Metoprolol Succinate 50 MG DAILY 07/12 1500 DC PO Omeprazole 40 MG DAILY AC 07/12 0700 AC 07/13 PO 0537 Senna 187 MG AT BEDTIME 07/12 2200 AC 07/12 PO 2151 Senna/Docusate Sodium 1 TAB .STK-MED ONE 07/12 2146 DC PO 07/12 214 Sodium Chloride 1,000 ML Q20H 07/11 1830 DC 07/11 IV 07/12 1429 1904 Results Last 48 Hrs of Labs/Mics: Laboratory Tests 07/13/17 0623: Anion Gap 15, Estimated GFR 50 L, BUN/Creatinine Ratio 12.1, CBC w Diff NO MAN DIFF REQ, RBC 3.44 L, MCV 81.3, MCH 25.7 L, MCHC 31.6 L, RDW 17.1 H, MPV 10.4, Gran % 41.1 L, Lymphocytes % 43.0, Monocytes % 11.3 H, Eosinophils % 3.3 , Basophils % 1.3, Absolute Granulocytes 1.6, Absolute Lymphocytes 1.7, Absolute Monocytes 0.4, Absolute Eosinophils 0.1, Absolute Basophils 0.1 07/12/17 1040: Anion Gap 13, Estimated GFR 42 L, BUN/Creatinine Ratio 11.3, Iron 32 L, TIBC 303, Ferritin 161.0, CBC w Diff NO MAN DIFF REQ, RBC 3.31 L, MCV 82.1, MCH 26.3 L, MCHC 32.1 L, RDW 16.9 H, MPV 10.1, Gran % 39.9 L, Lymphocytes % 42.8, Monocytes % 12.3 H, Eosinophils % 3.2, Basophils % 1.8, Absolute Granulocytes 1.8, Absolute Lymphocytes 2.0, Absolute Monocytes 0.6, Absolute Eosinophils 0.1, Absolute Basophils 0.1 07/11/17 2305: Troponin I 0.02 07/11/17 1751: Troponin I 0.03 07/11/17 1113: Anion Gap 16, Estimated GFR 35 L, BUN/Creatinine Ratio 10.0, Glucose 98, Calcium 9.2, Magnesium 1.9, Iron 51, TIBC 335, % Saturation 15 L, Ferritin 192.0, Total Bilirubin 0.9, AST 44, ALT 47, Alkaline Phosphatase 106, Troponin I 0.02, Total Protein 7.9, Albumin 4.2, Globulin 3.7, Albumin/Globulin Ratio 1.1, Triglycerides 138, Cholesterol 90, LDL Cholesterol, Calc 32 L, HDL Cholesterol 31 L, Cholesterol/HDL Ratio 3, TSH 2.460, Free T4 1.63, Prolactin 12.4, PT 16.2 H, INR 1.55 H, D-Dimer High Sensitivty 1233 H, CBC w Diff NO MAN DIFF REQ, RBC 3.75 L, MCV 81.9, MCH 26.2 L, RDW 16.5 H, MPV 9.7, Gran % 46.5, Lymphocytes % 35.1, Monocytes % 12.6 H, Eosinophils % 3.2, Basophils % 2.6 H, Absolute Granulocytes 2.2, Absolute Lymphocytes 1.6, Absolute Monocytes 0.6, Absolute Eosinophils 0.1, Absolute Basophils 0.1, PUBS MCHC 32.0 L Assessment/Plan Assessment/Plan In summary this 72-year-old gentleman has the following problems 1. Coronary disease status post coronary bypass surgery 05/30/2017 with LARSEN to the LAD, saphenous vein graft to the obtuse marginal and PDA 2. Postoperative atrial fibrillation on amiodarone/Eliquis 3. Postoperative renal insufficiency slightly worse on recent blood work, but now improving with a baseline creatinine of 1.4 4. Hypertension by history stable blood pressure. 5. Obesity 6. Syncopal episodes of uncertain etiology. 7. Ischemic cardiomyopathy with ejection fraction 35-40% 8. Conduction disease by ECG with bifascicular block 9. Anemia progressing from admission meds occult positive stool by guaiac Patient appears clinically stable from a cardiac standpoint. No arrhythmias. On appropriate dose of medication. However guaiac positive stools and progressive anemia might necessitate GI workup and interruption of anticoagulation. From a cardiac standpoint he can get a prolonged loop monitor as an outpatient to check for arrhythmias, follow-up echocardiogram to see if left ventricular function improves and if not will need an electrophysiological study and perhaps AICD defibrillator. Continue telemetry? Yes
--- NOTE | 2017-07-13 11:23 | PN- Pulmonary ---
Subjective HPI/Critical Care Issues: No overnight events. Has no CP, sOB, abd pain, or other issues. Feels good, looking to go home. His stool was positive for heme Review of Systems Constitutional: Reports: no symptoms. EENTM: Reports: no symptoms. Cardiovascular: Reports: no symptoms. Respiratory: Reports: no symptoms. Gastrointestinal: Reports: no symptoms. Genitourinary: Reports: no symptoms. Musculoskeletal: Reports: no symptoms. Skin: Reports: no symptoms. Neurological/Psychological: Reports: no symptoms. Hematologic/Endocrine: Reports: no symptoms. Immunologic/Allergic: Reports: no symptoms. Objective Current Medications: Current Medications Sig/Melanie Start time Last Medication Dose Route Stop Time Status Admin Acetaminophen 500 MG Q6P PRN 07/11 2015 AC PO Amiodarone HCl 100 MG DAILY 07/11 1553 AC 07/13 PO 0933 Apixaban 2.5 MG BID 07/11 1553 AC 07/13 PO 0931 Aspirin Buffered 81 MG DAILY 07/12 1000 AC 07/13 PO 0931 Atorvastatin Calcium 80 MG DAILY 07/11 1554 AC 07/13 PO 0931 Docusate Sodium 100 MG DAILY 07/12 2145 AC 07/13 PO 0931 Metoprolol Succinate 50 MG 2200 07/12 2200 AC 07/12 PO 2129 Metoprolol Succinate 50 MG DAILY 07/12 1500 DC PO Omeprazole 40 MG DAILY AC 07/12 0700 AC 07/13 PO 0537 Senna 187 MG AT BEDTIME 07/12 2200 AC 07/12 PO 2151 Senna/Docusate Sodium 1 TAB .STK-MED ONE 07/12 2147 DC PO 07/12 2148 Sodium Chloride 1,000 ML Q20H 07/11 1830 DC 07/11 IV 07/12 1429 1904 Vital Signs & I&O Last 24 Hrs of Vitals and I&O: Vital Signs Date Time Temp Pulse Resp B/P B/P Pulse O2 O2 Flow FiO2 Mean Ox Delivery Rate 07/13 0933 114/78 07/12 2232 98.0 68 18 110/80 96 Room Air 07/129 68 110/80 07/12 1458 97.6 73 19 138/72 96 Intake & Output 07/13 1600 07/13 0800 07/13 0000 Intake Total 120 120 Output Total 500 400 Balance -380 -280 Intake, Oral 120 120 Output, Urine 500 400 Impression/Plan Impression/Plan Impression/Plan: Physical Exam General Appearance: Alert, Oriented X3, Cooperative, No Acute Distress Cardiovascular: Regular Rate, Normal S1, Normal S2 Lungs: Clear to Auscultation Abdomen: Normal Bowel Sounds, Soft, No Tenderness Extremities: No Edema IMPRESSION * Resolved Syncopal episode with prob seizure, Diff dx syncope, vs possibly seizure, vs VT, Bradyarrthmia etc * Persistant hypotension, now better * Rule out seizure, eeg pending * Sig anemia with worsening hemoglobin, now with heme positive stool * Recent CABG with Coronary disease status post coronary bypass surgery 2016 with LARSEN to the LAD, saphenous vein graft to the obtuse marginal and PDA * Post op Afib on amiodarone, and eloquis now in sinus * HTN * OBesit * 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
--- NOTE | 2017-07-13 12:36 | ELECTROENCEPHALOGRAM REPORT ---
Electroencephalogram Report Electroencephalogram Results Date of service: 07/12/17 Attending MD: Alonso PADILLA,Issac Garcia Tube Repairer: Wade Boucher EEG Number: [id number] Test Utilizes: 10-20 system, 21 lead 18 channel digital recording Pertinent Hx/Physical/Neuro Findings/Clin Diagnosis: Syncope. Rule out seizure. Inpatient Medications: Current Medications Sig/Melanie Start time Last Medication Dose Route Stop Time Status Admin Acetaminophen 500 MG Q6P PRN 07/11 2015 AC PO Amiodarone HCl 100 MG DAILY 07/11 1553 AC 07/13 PO 0933 Apixaban 2.5 MG BID 07/11 1553 AC 07/13 PO 0931 Aspirin Buffered 81 MG DAILY 07/12 1000 AC 07/13 PO 0931 Atorvastatin Calcium 80 MG DAILY 07/11 1554 AC 07/13 PO 0931 Docusate Sodium 100 MG DAILY 07/12 2145 AC 07/13 PO 0931 Metoprolol Succinate 50 MG 2200 07/12 2200 AC 07/12 PO 2129 Metoprolol Succinate 50 MG DAILY 07/12 1500 DC PO Omeprazole 40 MG DAILY AC 07/12 0700 AC 07/13 PO 0537 Senna 187 MG AT BEDTIME 07/12 2200 AC 07/12 PO 2151 Senna/Docusate Sodium 1 TAB .STK-MED ONE 07/12 2147 DC PO 07/12 2148 Sodium Chloride 1,000 ML Q20H 07/11 1830 DC 07/11 IV 07/12 1429 1904 Interpretation: The predominant posterior background rhythm consists of well-modulated, medium voltage 8 cps activity which attenuates to eye opening. Lower voltage faster frequencies were seen over the anterior head regions bilaterally. No focal, paroxysmal or lateralizing features were identified. Hyperventilation was deferred. Photic stimulation induced no abnormalities. Impression: Normal EEG
--- NOTE | 2017-07-13 14:14 | Discharge Summary ---
Visit Information Visit Dates Admission Date: 07/12/17 Discharge Date: 07/13/17 Hospital Course Course Attending Physician: Issac Gupta MD Primary Care Physician: Issac Gupta MD. 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 On presentation, vital signs were T 97.0, HR 67, RR 20, BP 97/53, saturating 95% on room air. Laboratories were significant for white blood cell count 4.7, hemoglobin 9.8, MCV 81.9, platelets 217, 12.6% monocytes, 2.6% basophils, 35.1% monocytes, creatinine 1.9, LDL cholesterol 32, HDL cholesterol 31. Head CT showed no acute bleeds or territorial infarcts. He was admitted to telemetry and treated for the following problems: 1. Syncope 2. Acute kidney injury 3. Normocytic anemia 4. Leukopenia #Syncope: Patient was admitted to telemetry and his heart was monitored. No arrhythmias were found. Cardiology and neurology evaluated the patient. Head CT was negative. Troponins 3 were negative. Carotid Doppler did not show any stenosis. LDL cholesterol excellent, HDL cholesterol a little low. Previous echocardiogram showed EF of 35%. He had recent CABG and therefore cardiology wants to wait to perform a repeat echocardiogram. EEG was normal, though possibility of seizure remains. He should follow up with cardiology for outpatient loop recorder. It is possible that he is having arrhythmia that was not picked up while he was here. #Acute kidney injury: Patient's creatinine 1.9 on presentation. Improved with fluid hydration. He likely has an element of renal insufficiency after his last bypass procedure. #Leukopenia: Unclear etiology. monocytes are high. He may need flow cytometry to rule out malignancy as an outpatient. #Normocytic anemia: Mild. Iron low, ferritin normal. Stool guiac positive, stool is dark. The patient had a colonoscopy with Dr. Prajapati on 12/26/2016 that showed mild diverticula and normal colonic mucosa to the cecum without any recurrent polyps. He had previously had benign polyps: 12/12/2013: Baseline colonoscopy to the cecum- moderate holt diverticulosis coli, left side greater than right, scant internal hemorrhoids, removal of 2 benign tubular adenomas (6 mm & 1.2 cm), plus removal of a 2 cm benign tubulovillous adenoma. He was advised at that time to have surveillance colonoscopy in December 2021. GI was consulted and recommended outpatient follow-up with Dr. Prajapati for potential EGD. He was prescribed omeprazole. He should also not take his apixiban anymore. #Chronic medical problems: Home medications were continued except as above. Allergies: Coded Allergies: NO KNOWN ALLERGIES (01/20/12) Per [facility] [place] nurse Lety. -- Vicky 01/20/12 Disposition Summary Disposition Principal Diagnosis: 1. Syncope Additional Diagnosis: 2. Acute kidney injury 3. Normocytic anemia 4. Leukopenia Discharge Disposition: home health services Discharge Instructions General Discharge Information Code Status: Full Code Patient's Diet: heart healthy Patient's Activity: as tolerated Follow-Up Instructions/Appts: Please take all medications as directed. Please follow up with cardiology for loop recorder. Please follow-up with GI for evaluation of the anemia. Please follow-up with primary care. Medications at Discharge Discharge Medications: Stop taking the following medications: Apixaban (Eliquis) 2.5 MG TABLET ORAL TWICE DAILY Esomeprazole (Nexium) 40 MG CAPSULE. ORAL DAILY Continue taking these medications: Tamsulosin HCl (Tamsulosin HCl) 0.4 MG CAP.ER.24H 1 Capsule ORAL DAILY Qty = 30 Amiodarone (Cordarone) 200 MG TAB 100 Milligram ORAL DAILY Comments: Last Taken:07/13/17 Time:1000 Aspirin (Ecotrin*) 81 MG TABLET.DR 1 Tablet ORAL DAILY Comments: Last Taken:07/13/17 Time:1000 Atorvastatin Calcium (Atorvastatin Calcium) 80 MG TABLET 1 Tablet ORAL DAILY Qty = 30 Comments: Last Taken:07/12/17 Time:5PM Metoprolol Succ XL (Toprol XL) 100 MG TAB.ER.24H 1 Tablet ORAL DAILY Comments: Last Taken:07/12/17 Time:1000 PM Tamsulosin HCl (Flomax) 0.4 MG CAP.ER.24H 1 Tablet ORAL DAILY Start taking the following new medications: Omeprazole (Omeprazole) 40 MG CAPSULE. 1 Capsule ORAL TWICE DAILY Qty = 60 No Refills Ferrous Sulfate (Ferrous Sulfate) 325 MG (65 MG IRON) TABLET 1 Tablet ORAL DAILY Qty = 30 No Refills Copies To: Casa PADILLA,Koko Beal; Alonso PADILLA,Issac Garcia; Ariana PADILLA,Jer
--- NOTE | 2017-07-13 14:18 | Patient Discharge Instructions ---
See Addendum Discharge Instructions General Discharge Information You were seen/treated for: Syncope, anemia Watch for these problems: Fever, chest pain, shortness of breath Special Instructions: Please take all medications as directed. Please follow-up with primary care. Please follow-up with gastroenterology, Dr. Prajapati. Diet Continue normal diet: Yes Activity Full Activity/No Limits: Yes Acute Coronary Syndrome Inclusion Criteria At DC or during hospital stay patient has or had the following: ACS DIAGNOSIS No Discharge Core Measures Meds if any: Prescribed or Continued at Discharge Meds if any: NOT Prescribed or Continued at Discharge Congestive Heart Failure Inclusion Criteria At DC or during hospital stay patient has or had the following: CHF DIAGNOSIS No Discharge Core Measures Meds if any: Prescribed or Continued at Discharge Meds if any: NOT Prescribed or Continued at Discharge Cerebrovascular accident Inclusion Criteria At DC or during hospital stay patient has or had the following: CVA/TIA Diagnosis No Discharge Core Measures Meds if any: Prescribed or Continued at Discharge Meds if any: NOT Prescribed or Continued at Discharge Venous thromboembolism Inclusion Criteria VTE Diagnosis No VTE Type NONE VTE Confirmed by (Test) NONE Discharge Core Measures - Per Current guidelines, there needs to be overlap - treatment for the first 5 days of Warfarin therapy. - If discharged on Warfarin prior to 5 days of - overlap therapy, the patient will need to be - assessed for post discharge needs including - *Post discharge parental anticoagulation - *Warfarin and/or parental anticoagulation education - *Follow up date to check INR post discharge At least 5 days overlap therapy as Inpatient No Meds if any: Prescribed or Continued at Discharge Note: Overlap Therapy is Warfarin and Anticoagulant Meds if any: NOT Prescribed or Continued at Discharge
[2017-07-13] MEDS ORDERED: OMEPRAZOLE40 M1 PO (14:26)
[2017-07-13 14:28] VITALS: BP 124/82
--- NOTE | 2017-07-13 14:31 | Cons- Gastroenterology ---
General Information and HPI Consulting Request Date of Consult: 07/13/17 Requested By: Alonso PADILLA,Issac Garcia Reason for Consult: Anemia, guaiac positive stool Source of Information: patient, old records Exam Limitations: no limitations History of Present Illness: Mr. Ambriz is a 72 year old male with multiple medical problems including CAD s/p 3 vessel CABG last month at [facility] who was admitted to telemetry 2 days ago after presenting with a syncopal episode. He was ruled out for an [place] by cardiac enzymes and since he has been admitted he has not had any syncopal episodes and he otherwise feels well and he is expecting to go home later today. He has been noted to be anemic on admission and to have guaiac positive stool, but he is without any melena, or brbpr. He is also without any abdominal pain with eating, heartburn, dysphagia, vomiting, diarrhea or constipation. He last underwent a colonoscopy last year and while that showed diverticulosis it was negative for adenomatous polyps which he does have a history of. Allergies/Medications Allergies: Coded Allergies: NO KNOWN ALLERGIES (01/20/12) Per [facility] nurse Lety. -- Vicky 01/20/12 Home Med List: Amiodarone (Cordarone) 200 MG TAB 100 MG PO DAILY CARDIAC (Reported) Aspirin (Ecotrin*) 81 MG TABLET.DR 1 TAB PO DAILY CARDIAC (Reported) Atorvastatin Calcium 80 MG TABLET 1 TAB PO DAILY CHOLESTEROL (Reported) Ferrous Sulfate 325 MG (65 MG IRON) TABLET 1 TAB PO DAILY Iron Metoprolol Succ XL (Toprol XL) 100 MG TAB.ER.24H 1 TAB PO DAILY HTN (Reported ) Omeprazole 40 MG CAPSULE.DR 1 CAP PO BID GI Tamsulosin HCl 0.4 MG CAP.ER.24H 1 CAP PO DAILY URINE (Reported) Tamsulosin HCl (Flomax) 0.4 MG CAP.ER.24H 1 TAB PO DAILY BPH (Reported) Current Medications: Current Medications Sig/Melanie Start time Last Medication Dose Route Stop Time Status Admin Acetaminophen 500 MG Q6P PRN 07/11 2014 AC PO Amiodarone HCl 100 MG DAILY 07/11 1553 AC 07/13 PO 0933 Apixaban 2.5 MG BID 07/11 1553 DC 07/13 PO 0931 Aspirin Buffered 81 MG DAILY 07/12 1000 AC 07/13 PO 0931 Atorvastatin Calcium 80 MG DAILY 07/11 1554 AC 07/13 PO 0931 Docusate Sodium 100 MG DAILY 07/12 2145 AC 07/13 PO 0931 Metoprolol Succinate 50 MG 0 07/12 2199 AC 07/12 PO 2129 Metoprolol Succinate 50 MG DAILY 07/12 1500 DC PO Omeprazole 40 MG BID 07/13 2199 AC PO Omeprazole 40 MG DAILY AC 07/12 0700 DC 07/13 PO 0537 Senna 187 MG AT BEDTIME 07/12 2199 AC 07/12 PO 2151 Senna/Docusate Sodium 1 TAB .STK-MED ONE 07/12 2146 DC PO 07/12 2147 Sodium Chloride 1,000 ML Q20H 07/11 1830 DC 07/11 IV 07/12 1429 1904 Past History Travel History Traveled to [place] past 21 day No Medical History Blood Transfusion Hx: No Neurological: NONE EENT: NONE Cardiovascular: CAD, hypertension, A-FIB Respiratory: NONE Gastrointestinal: GERD Hepatic: NONE Renal: NONE Musculoskeletal: NONE Psychiatric: NONE Endocrine: NONE Blood Disorders: NONE Cancer(s): NONE 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 EENTM: Denies: no symptoms. Cardiovascular: Reports: syncope. Denies: chest pain, edema, orthopena. Respiratory: Denies: no symptoms. GI: Denies: see HPI. Genitourinary: Denies: no symptoms. Musculoskeletal: Denies: no symptoms. Skin: Denies: no symptoms. Neurological/Psychological: Denies: no symptoms. Hematologic/Endocrine: Denies: no symptoms. Immunologic/Allergic: Denies: no symptoms. All Other Systems: Reviewed and Negative Exam & Diagnostic Data Vital Signs and I&O Vital Signs Date Time Temp Pulse Resp B/P B/P Pulse O2 O2 Flow FiO2 Mean Ox Delivery Rate 07/13 0933 114/78 07/122 98.0 68 18 110/80 96 Room Air 07/12 2128 68 110/80 07/12 1458 97.6 73 19 138/72 96 Intake & Output 07/13 1600 07/13 0400 07/12 1600 07/12 0400 01/23 1600 07/11 0400 Intake Total 469 480 1491 25 250 Output Total 936 998 6458 Balance -380 -280 210 25 250 Intake, IV 600 25 250 Intake, Oral 120 120 760 Output, Urine 084 475 4609 Patient 180 lb 292 lb 292 lb Weight Weight Reported by Patient Reported by Patient Measurement Method Physical Exam General Appearance: well developed/nourished, no apparent distress, comfortable Head: atraumatic, normal appearance Eyes: Bilateral: normal appearance. Ears, Nose, Throat: normal pharynx, normal ENT inspection Neck: normal inspection, supple, full range of motion Respiratory: normal breath sounds, chest non-tender, no respiratory distress Cardiovascular: regular rate/rhythm Gastrointestinal: normal bowel sounds, soft, non-tender, no organomegaly Rectal: deferred Back: normal inspection, normal range of motion Extremities: pedal edema Neurologic/Psych: no motor/sensory deficits, awake, alert, oriented x 3 Skin: intact, normal color Results Pertinent Lab Results: Laboratory Tests 07/13 07/13 1315 0623 Chemistry Sodium (137 - 145 mmol/L) 143 Potassium (3.5 - 5.1 mmol/L) 4.5 Chloride (98 - 107 mmol/L) 100 Carbon Dioxide (22 - 30 mmol/L) 28 Anion Gap (5 - 16) 15 BUN (9 - 20 mg/dL) 17 Creatinine (0.7 - 1.2 mg/dL) 1.4 H Estimated GFR (>60 ml/min) 50 L BUN/Creatinine Ratio (7 - 25 %) 12.1 Hematology CBC w Diff Pending NO MAN DIFF REQ WBC (4.8 - 10.8 /CUMM) Pending 3.9 L RBC (4.70 - 6.10 /CUMM) Pending 3.44 L Hgb (14.0 - 18.0 G/DL) Pending 8.9 L Hct (42 - 52 %) Pending 28.0 L MCV (80.0 - 94.0 FL) Pending 81.3 MCH (27.0 - 31.0 PG) Pending 25.7 L MCHC (33.0 - 37.0 G/DL) Pending 31.6 L RDW (11.5 - 14.5 %) Pending 17.1 H Plt Count (130 - 400 /CUMM) Pending 208 MPV (7.4 - 10.4 FL) Pending 10.4 Gran % (42.2 - 75.2 %) 41.1 L Lymphocytes % (20.5 - 51.1 %) 43.0 Monocytes % (1.7 - 9.3 %) 11.3 H Eosinophils % (0 - 5 %) 3.3 Basophils % (0.0 - 2.0 %) 1.3 Absolute Granulocytes (1.4 - 6.5 /CUMM) 1.6 Absolute Lymphocytes (1.2 - 3.4 /CUMM) 1.7 Absolute Monocytes (0.10 - 0.60 /CUMM) 0.4 Absolute Eosinophils (0.0 - 0.7 /CUMM) 0.1 Absolute Basophils (0.0 - 0.2 /CUMM) 0.1 07/12 07/11 07/11 1040 2305 1751 Chemistry Sodium (137 - 145 mmol/L) 143 Potassium (3.5 - 5.1 mmol/L) 4.7 Chloride (98 - 107 mmol/L) 99 Carbon Dioxide (22 - 30 mmol/L) 30 Anion Gap (5 - 16) 13 BUN (9 - 20 mg/dL) 18 Creatinine (0.7 - 1.2 mg/dL) 1.6 H Estimated GFR (>60 ml/min) 42 L BUN/Creatinine Ratio (7 - 25 %) 11.3 Iron (49 - 181 ug/dL) 32 L TIBC (261 - 462 ug/dL) 303 Ferritin (17.9 - 464 ng/mL) 161.0 Troponin I (<0.11 ng/ml) 0.02 0.03 Hematology CBC w Diff NO MAN DIFF REQ WBC (4.8 - 10.8 /CUMM) 4.6 L RBC (4.70 - 6.10 /CUMM) 3.31 L Hgb (14.0 - 18.0 G/DL) 8.7 L Hct (42 - 52 %) 27.2 L MCV (80.0 - 94.0 FL) 82.1 MCH (27.0 - 31.0 PG) 26.3 L MCHC (33.0 - 37.0 G/DL) 32.1 L RDW (11.5 - 14.5 %) 16.9 H Plt Count (130 - 400 /CUMM) 193 MPV (7.4 - 10.4 FL) 10.1 Gran % (42.2 - 75.2 %) 39.9 L Lymphocytes % (20.5 - 51.1 %) 42.8 Monocytes % (1.7 - 9.3 %) 12.3 H Eosinophils % (0 - 5 %) 3.2 Basophils % (0.0 - 2.0 %) 1.8 Absolute Granulocytes (1.4 - 6.5 /CUMM) 1.8 Absolute Lymphocytes (1.2 - 3.4 /CUMM) 2.0 Absolute Monocytes (0.10 - 0.60 /CUMM) 0.6 Absolute Eosinophils (0.0 - 0.7 /CUMM) 0.1 Absolute Basophils (0.0 - 0.2 /CUMM) 0.1 07/11 1113 Chemistry Sodium (137 - 145 mmol/L) 144 Potassium (3.5 - 5.1 mmol/L) 4.7 Chloride (98 - 107 mmol/L) 100 Carbon Dioxide (22 - 30 mmol/L) 28 Anion Gap (5 - 16) 16 BUN (9 - 20 mg/dL) 19 Creatinine (0.7 - 1.2 mg/dL) 1.9 H Estimated GFR (>60 ml/min) 35 L BUN/Creatinine Ratio (7 - 25 %) 10.0 Glucose (65 - 99 mg/dL) 98 Calcium (8.4 - 10.2 mg/dL) 9.2 Magnesium (1.6 - 2.3 mg/dL) 1.9 Iron (49 - 181 ug/dL) 51 TIBC (261 - 462 ug/dL) 335 % Saturation (16 - 45 %) 15 L Ferritin (17.9 - 464 ng/mL) 192.0 Total Bilirubin (0.2 - 1.3 mg/dL) 0.9 AST (17 - 59 U/L) 44 ALT (21 - 72 U/L) 47 Alkaline Phosphatase (< 127 U/L) 106 Troponin I (<0.11 ng/ml) 0.02 Total Protein (6.3 - 8.2 g/dL) 7.9 Albumin (3.5 - 5.0 g/dL) 4.2 Globulin (1.9 - 4.2 gm/dL) 3.7 Albumin/Globulin Ratio (1.1 - 2.2 %) 1.1 Triglycerides (<150 mg/dL) 138 Cholesterol (< 200 MG/DL) 90 LDL Cholesterol, Calc (65 - 129 mg/dL) 32 L HDL Cholesterol (40 - 60 mg/dL) 31 L Cholesterol/HDL Ratio (0.00 - 4.88 %) 3 TSH (0.270 - 4.200 uIU/mL) 2.460 Free T4 (0.78 - 2.44 ng/dL) 1.63 Prolactin (3.7 - 17.9 ng/mL) 12.4 Coagulation PT (9.4 - 12.5 SEC) 16.2 H INR (0.90 - 1.17) 1.55 H D-Dimer High Sensitivty (0 - 243 ng/ml) 1233 H Hematology CBC w Diff NO MAN DIFF REQ WBC (4.8 - 10.8 /CUMM) 4.7 L RBC (4.70 - 6.10 /CUMM) 3.75 L Hgb (14.0 - 18.0 G/DL) 9.8 L Hct (42 - 52 %) 30.7 L MCV (80.0 - 94.0 FL) 81.9 MCH (27.0 - 31.0 PG) 26.2 L RDW (11.5 - 14.5 %) 16.5 H Plt Count (130 - 400 /CUMM) 217 MPV (7.4 - 10.4 FL) 9.7 Gran % (42.2 - 75.2 %) 46.5 Lymphocytes % (20.5 - 51.1 %) 35.1 Monocytes % (1.7 - 9.3 %) 12.6 H Eosinophils % (0 - 5 %) 3.2 Basophils % (0.0 - 2.0 %) 2.6 H Absolute Granulocytes (1.4 - 6.5 /CUMM) 2.2 Absolute Lymphocytes (1.2 - 3.4 /CUMM) 1.6 Absolute Monocytes (0.10 - 0.60 /CUMM) 0.6 Absolute Eosinophils (0.0 - 0.7 /CUMM) 0.1 Absolute Basophils (0.0 - 0.2 /CUMM) 0.1 PUBS MCHC (33.0 - 37.0 G/DL) 32.0 L Imaging/Other Studies: Procedure: Follow-up colonoscopy to the terminal ileum was performed with the Olympus high- definition video colonoscope, after obtaining informed consent from the patient, with the playground monitor and pulse oximeter, after MoviPrep, with the assistance of Dr. Piedra, of [facility]. The prep was fair. Some residual liquid stool was scattered throughout the colon, predominantly in the rectum, and was washed and suctioned essentially clear. I was able to adequately visualize the entire colonic mucosa to the cecum. The patient was in the left lateral decubitus position throughout the procedure. Direct views of the rectum failed to reveal any external hemorrhoids, fissures, or perianal disease. Digital rectal exam was unremarkable, without any masses. Sphincter tone was normal. Retroflexion in the rectum failed to reveal any internal hemorrhoids, gross proctitis, rectal ulcers, or rectal lesions. The colonic mucosa was carefully inspected, both upon insertion and upon withdrawal of the colonoscope. Withdrawal time was certainly adequate. There were mild left-sided diverticula. There were no strictures. I did not appreciate any proximal diverticula. The cecum, base of the appendix, and ileocecal valve were all identified. Confirmatory photographs were obtained. I did not enter the terminal ileum. The colonic mucosa appeared intact and within normal limits to the cecum, without any recurrent polyps, lesions, gross colitis, or angiodysplasias. No active lower GI bleeding was seen. The patient tolerated the procedure well. Impression: 1. Mild sided diverticula. 2. Normal colonic mucosa to the cecum, without any recurrent polyps. Assessment/Plan Assessment/Recommendations: Assessment: Mr. Ambriz is a 72-year-old male with multiple medical problems who recently underwent a three-vessel CABG at [facility] who was readmitted a few days ago for a syncopal episode who has since ruled out for a myocardial infarction by serial cardiac enzymes. He currently feels well, but he was noted to have a fall in his hemoglobin of a few grams from when he was previously admitted and also to have guaiac positive stool. Considering he only has occult blood in his stool without overt bleeding I feel it is more likely that the anemia he currently has a secondary to blood loss from his recent CABG and there is also likely element of anemia of chronic disease. While it is possible he could have some occult GI blood loss considering he just had a colonoscopy last year that was negative for adenomatous polyps I don't feel that needs to be repeated at this time. It would be reasonable to pursue an endoscopy and possibly a small bowel PillCam to further evaluate his anemia, but this is not urgent and can be pursued as an outpatient. Recommendations: 1. There are no GI contraindications to resuming his eliquis and aspirin if medically indicated for cardiac prophylaxis. 2. Continue oral PPI. 3. Notify GI for signs of overt GI bleeding, but if he remains without overt bleeding would discharge him home to follow up as an outpatient for a diagnostic EGD +/- a pill cam. 4. Start oral iron supplementation. Would ask that GI be recontacted for any new acute GI issues while hospitalized, otherwise he should follow-up as an outpatient for a diagnostic endoscopy and or pill cam if the EGD is negative. Problem List: 1. Anemia 2. Constipation Copies To: Alonso PADILLA,Issac Garcia; Jared PADILLA,Rohit Consult Acknowledgment - Thank you for your consult request.
[2017-07-13] MEDS ORDERED: FERROUS SULFAT325 M3 PO (14:43)
[2017-07-13 15:18] LABS: ABSOLUTE BASOPHIL COUNT 0 /CUMM (0.0-0.2); ABSOLUTE EOSINOPHIL COUNT 0.2 /CUMM (0.0-0.7); ABSOLUTE GRANULOCYTE CT 2.2 /CUMM (1.4-6.5); ABSOLUTE LYMPH COUNT 2.1 /CUMM (1.2-3.4); ABSOLUTE MONOCYTE COUNT 0.7 /CUMM (0.10-0.60); BASOPHIL % 0.8 % (0.0-2.0); EOSINOPHIL % 3.1 % (0-5); GRANULOCYTE % 42.1 % (42.2-75.2); HEMATOCRIT 28.1 % (42-52); MEAN CORPUSCULAR HGB 26.6 PG (27.0-31.0); MEAN CORPUSCULAR HGB CONC 32.3 G/DL (33.0-37.0); MEAN CORPUSCULAR VOLUME 82.3 FL (80.0-94.0); MEAN PLATELET VOLUME 10.6 FL (7.4-10.4); PLATELET COUNT 187 /CUMM (130-400); RBC DISTRIBUTION WIDTH 17.2 % (11.5-14.5); RED BLOOD CELL CT 3.41 /CUMM (4.70-6.10); WHITE BLOOD CELL COUNT 5.1 /CUMM (4.8-10.8)
== END 2017-07-13 16:05 | disposition home health service (06) | DRG 312 ==
LOC: ERH 09:25 → 1NO 11:56 → ERHI 11:56 → EDBEDREQ 13:20 → ENRESERV 19:57 → ENTRNSPT 20:56 → 1NO 21:22 → CMPTRNSPT 21:31 → 1NO 07-12 11:14 → ENPENDDIS 07-13 14:26 → ENTRNSPT 07-13 15:45 → EDTRNSPTSTS 07-13 15:59 → 1NO 07-13 16:05 → CMPTRNSPT 07-13 16:13
PROVIDERS: Emergency Medicine; Internal Medicine
DX: R55 Syncope and collapse (principal); N17.9 Acute kidney failure, unspecified; I50.22 Chronic systolic (congestive) heart failure; I11.0 Hypertensive heart disease with heart failure; I48.91 Unspecified atrial fibrillation; I25.5 Ischemic cardiomyopathy; I25.10 Atherosclerotic heart disease of native coronary artery without angina pectoris; I45.2 Bifascicular block; D63.8 Anemia in other chronic diseases classified elsewhere; D50.0 Iron deficiency anemia secondary to blood loss (chronic); D72.819 Decreased white blood cell count, unspecified; Z95.1 Presence of aortocoronary bypass graft; K21.9 Gastro-esophageal reflux disease without esophagitis; Z86.010 Personal history of colon polyps; K59.00 Constipation, unspecified; R01.1 Cardiac murmur, unspecified; E66.9 Obesity, unspecified; Z68.27 Body mass index [BMI] 27.0-27.9, adult
CPT/HCPCS: 1NP; 36415; 82436; 93005; 93010; 95816; J0131; J7508

== ENCOUNTER 2017-07-17 01:55 | Observation (INO) | payer OTHER ==
[~2017-07-17] VITALS: Ht 180.3 cm; Wt 131.5 kg
[~2017-07-17 01:55] MED LIST changes: +AMIODARONE HCL200 M1 PO; +ASPIRIN EC81 M1 PO; +ATORVASTATIN CA80 M1 PO; +ELIQUIS2.5 M1 PO; +FERROUS SULFAT325 M3 PO; +FLOMAX0.4 M1 PO; +NEXIUM40 M1 PO; +OMEPRAZOLE40 M1 PO; +TOPROL XL100 M1 PO
--- NOTE | 2017-07-17 02:01 | ED SYNCOPE COMPLAINT ---
See Addendum History of Present Illness General Chief Complaint: Syncope and Near-Syncope Stated Complaint: SYNCOPAL EPISODE Source: patient, family Exam Limitations: clinical condition Vital Signs & Intake/Output Vital Signs & Intake/Output Vital Signs Date Time Temp Pulse Resp B/P B/P Pulse O2 O2 Flow FiO2 Mean Ox Delivery Rate 07/17 0542 97.6 68 18 151/79 97 Room Air 07/17 0349 66 18 138/66 07/17 0318 70 117/62 07/17 0203 96.4 68 16 84/54 96 Room Air Allergies Coded Allergies: NO KNOWN ALLERGIES (01/20/12) Per STS nurse Lety. -- Vicky 01/20/12 Reconcile Medications Amiodarone (Cordarone) 200 MG TAB 100 MG PO DAILY CARDIAC (Reported) Aspirin (Ecotrin*) 81 MG TABLET.DR 1 TAB PO DAILY CARDIAC (Reported) Atorvastatin Calcium 80 MG TABLET 1 TAB PO DAILY CHOLESTEROL (Reported) Ferrous Sulfate 325 MG (65 MG IRON) TABLET 1 TAB PO DAILY Iron Metoprolol Succ XL (Toprol XL) 100 MG TAB.ER.24H 1 TAB PO DAILY HTN (Reported ) Omeprazole 40 MG CAPSULE.DR 1 CAP PO BID GI Tamsulosin HCl 0.4 MG CAP.ER.24H 1 CAP PO DAILY URINE (Reported) Tamsulosin HCl (Flomax) 0.4 MG CAP.ER.24H 1 TAB PO DAILY BPH (Reported) Triage Nurses Notes Reviewed? yes Timing: single episode today Precipitating Factors: "PASSED OUT" Context: was sitting in his chair Episode Description: see below Associated Symptoms: syncope HPI: 72 yo gentleman h/o cad, s/p cabg 05/2017, presents with syncope. Per his , "He was in his chair watching television. I heard a loud crash, and then I found him on the ground... He has stopped breathing. I went to him and shook him, and then he slowly woke up." He states that he does not recall the episode. He does not have any chest pain, shortness of breath, dizziness. He notes that he feels generally weak presently. Past History Travel History Traveled to [place] past 21 day No Medical History Any Pertinent Medical History? 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 No Review of Systems Review of Systems Constitutional: Reports: no symptoms. EENTM: Reports: no symptoms. Respiratory: Reports: no symptoms. Cardiovascular: Reports: no symptoms. GI: Reports: no symptoms. Genitourinary: Reports: no symptoms. Musculoskeletal: Reports: no symptoms. Skin: Reports: no symptoms. Neurological/Psychological: Reports: no symptoms. All Other Systems: Reviewed and Negative Physical Exam Physical Exam General Appearance: well developed/nourished, no apparent distress Head: atraumatic, normal appearance Eyes: Bilateral: normal appearance. Ears, Nose, Throat: normal pharynx, normal ENT inspection Neck: normal inspection, supple, full range of motion Respiratory: normal breath sounds, chest non-tender, no respiratory distress, quiet respiration, lungs clear Cardiovascular: regular rate/rhythm, edema Gastrointestinal: normal bowel sounds, soft, non-tender Back: normal inspection Extremities: normal inspection, normal capillary refill Psychiatric: awake, lethargic Cranial Nerves: normal hearing, normal speech Motor/Sensory: no motor/sensory deficits Skin: cool, clammy Core Measures ACS in differential dx? No CVA/TIA Diagnosis: No Sepsis Present: Yes Sepsis Focused Exam Completed? Yes Progress Differential Diagnosis: drug induced syncope, orthostatic syncope, vasodepressor syncope Plan of Care: Orders Procedure Date/time Status Nothing by Mouth 07/17 B Active Saline Lock 07/[address] in observation 07/17 06 Active Misc Message 07/17 0641 Active ED Holding Orders 07/17 0641 Active Vital Signs 07/17 0641 Active Code Status 07/17 06 Active CTA CHEST-AORTIC DISSECTION 07/17 0635 Active LACTIC ACID 07/17 0519 Active RAPID VIRAL INFLUENZA A 07/17 0505 Complete LACTIC ACID 07/17 0219 Complete PARTIAL THROMBOPLASTIN TIME 07/17 0214 Complete PROTHROMBIN TIME 07/17 0214 Complete D-DIMER 07/17 0214 Complete TROPONIN LEVEL 07/17 0201 Complete LIPASE 07/17 0201 Complete HEPATIC FUNCTION PANEL 07/17 0201 Complete ETHANOL 07/17 200 Complete CBC WITHOUT DIFFERENTIAL 07/17 200 Complete BASIC METABOLIC PANEL 07/17 200 Complete AMYLASE 07/17 200 Complete EKG 07/17 015 Active Laboratory Tests 07/17/17 0551: Lactic Acid 0.9 07/17/17 0551: Anion Gap 12, Estimated GFR 50 L, BUN/Creatinine Ratio 10.0, Glucose 97, Calcium 8.5, Total Bilirubin 0.5, Direct Bilirubin 0.2, AST 41, ALT 43, Alkaline Phosphatase 91, Troponin I 0.03, Total Protein 6.8, Albumin 3.6, Amylase 75, Lipase 100, PT 12.6 H, INR 1.20 H, APTT 32, D-Dimer High Sensitivty 533 H, Serum Alcohol < 10.0 07/17/17 0400: CBC w Diff NO MAN DIFF REQ, RBC 3.44 L, MCV 82.4, MCH 26.3 L, MCHC 31.9 L, RDW 17.2 H, MPV 10.4, Gran % 60.2, Lymphocytes % 28.7, Monocytes % 9.1, Eosinophils % 1.1, Basophils % 0.9, Absolute Granulocytes 2.8, Absolute Lymphocytes 1.3, Absolute Monocytes 0.4, Absolute Eosinophils 0.1, Absolute Basophils 0 07/17/17 021: Serum Alcohol Cancelled Microbiology 07/17 511 NASOPHARYN: Influenza Virus A & B Rapid Smear - COMP Diagnostic Imaging: Viewed by Me: Radiology Read, CT Scan. Discussed w/RAD: Radiology Read, CT Scan. Radiology Impression: PATIENT: SUMAYA BAÑUELOS PRESENT AGE: 72 PATIENT ACCOUNT NO: [id number] : 43 LOCATION: [facility] ORDERING PHYSICIAN: Florian Landrum MD SERVICE DATE: 07/17/17 EXAM TYPE: CAT - CT CERV SPINE WO IV CONTRAST; CT HEAD WO IV CONTRAST EXAMINATION: NONCONTRAST HEAD CT NONCONTRAST CERVICAL SPINE CT INDICATION INFORMATION: Syncope, fall, head injury COMPARISON: 07/11/2017 TECHNIQUE: Separate noncontrast CT examinations of the head and cervical spine were performed. Coronal and sagittal images were created for each examination at the technologist workstation. DLP: 1032 mGy-cm FINDINGS: Head: There is no evidence of acute intracranial hemorrhage or territorial infarction. No abnormal mass effect or midline shift is seen. Du to white matter differentiation is well preserved. No extra-axial fluid collections are identified. No hydrocephalus. Proportional prominence of the ventricles and sulcal spaces is consistent with mild volume loss. Patchy periventricular and deep white matter hypoattenuation is consistent with mild small vessel ischemic changes. The osseous structures and soft tissues are normal. The mastoid air cells and visualized portions of the paranasal sinuses are well aerated. Cervical spine: There is anatomic alignment of the vertebral bodies and posterior elements. The atlantoaxial and atlantooccipital articulations are intact. Vertebral body heights are maintained. There is multilevel intervertebral disc space narrowing with endplate osteophyte formation and facet arthropathy. No evidence of acute cervical spine fracture. There are nondisplaced fractures of the right posterior first and second ribs. Minimal early callus formation is likely present. No prevertebral soft tissue swelling. Visualized portions of the lung apices are unremarkable. The thyroid gland is unremarkable. IMPRESSION: 1. No acute intracranial findings. 2. No acute fracture or malalignment involving the cervical spine. Moderate multilevel degenerative changes. 3. Fractures of the posterior right first and second ribs. Minimal callus formation is noted suggesting these are subacute. DICTATED BY: Wang Malcolm MD DATE/TIME DICTATED:07/17/17242 GRINDING WHEEL FACER:SKYLER DATE/TIME TRANSCRIBED:242 CONFIDENTIAL, DO NOT COPY WITHOUT APPROPRIATE AUTHORIZATION. < Electronically signed in Other Vendor System> SIGNED BY: Wang Malcolm MD 07/17/17 0250 Initial ED EKG: RBBB, 1 AV BLOCK... NO SIGNIFICANT CHANGE FROM PRIOR. Departure Departure Disposition: STILL A PATIENT Condition: Stable Clinical Impression Primary Impression: Syncope Secondary Impressions: Shock Referrals: Alonso PADILLA,Issac Garcia (PCP/Family) Departure Forms: Customer Survey General Discharge Information Observation Note Spoke With: Dale Zuniga MD Physician Advisor Notified: PRITI HILARIO DO Place Patient In: Non-ED OBS Care Area Rationale for Observation: My rational for observation is as follows . pt with syncope in context of ef 35%, pt was hypotensive upon arrival... sbp 80' s... required normal saline 1 liter bolus. pt presently feeling better.... merits serial trops, ekg, cards eval in AM.... +dimer... will check aortogram for ?dissection. Critical Care Note Critical Care Note Critical Care Time: 30-74 min Comments: 07/17/17, 2:19am... sbp in 80's, 1 liter ns bolus wide open. ....
--- NOTE | 2017-07-17 02:50 | CT SCAN REPORT ---
EXAMINATION: NONCONTRAST HEAD CT NONCONTRAST CERVICAL SPINE CT INDICATION INFORMATION: Syncope, fall, head injury COMPARISON: 07/11/2017 TECHNIQUE: Separate noncontrast CT examinations of the head and cervical spine were performed. Coronal and sagittal images were created for each examination at the technologist workstation. DLP: 1032 mGy-cm FINDINGS: Head: There is no evidence of acute intracranial hemorrhage or territorial infarction. No abnormal mass effect or midline shift is seen. Du to white matter differentiation is well preserved. No extra-axial fluid collections are identified. No hydrocephalus. Proportional prominence of the ventricles and sulcal spaces is consistent with mild volume loss. Patchy periventricular and deep white matter hypoattenuation is consistent with mild small vessel ischemic changes. The osseous structures and soft tissues are normal. The mastoid air cells and visualized portions of the paranasal sinuses are well aerated. Cervical spine: There is anatomic alignment of the vertebral bodies and posterior elements. The atlantoaxial and atlantooccipital articulations are intact. Vertebral body heights are maintained. There is multilevel intervertebral disc space narrowing with endplate osteophyte formation and facet arthropathy. No evidence of acute cervical spine fracture. There are nondisplaced fractures of the right posterior first and second ribs. Minimal early callus formation is likely present. No prevertebral soft tissue swelling. Visualized portions of the lung apices are unremarkable. The thyroid gland is unremarkable. IMPRESSION: 1. No acute intracranial findings. 2. No acute fracture or malalignment involving the cervical spine. Moderate multilevel degenerative changes. 3. Fractures of the posterior right first and second ribs. Minimal callus formation is noted suggesting these are subacute.
--- NOTE | 2017-07-17 02:51 | RADIOLOGY REPORT ---
EXAMINATION: XR PORTABLE CHEST CLINICAL INFORMATION: Syncope. COMPARISON: Multiple priors, including the cervical spine radiographs from today and chest radiograph from 05/24/2017 TECHNIQUE: Portable frontal view of the chest was obtained. FINDINGS: Median sternotomy wires appear intact. Lung volumes are low. No consolidation, edema, or effusion. No pneumothorax. The cardiomediastinal silhouette is unchanged. The nondisplaced right posterior first and second rib fractures are not well visualized on this study. IMPRESSION: Low lung volumes with no acute pulmonary findings.
[2017-07-17 04:14] LABS: ABSOLUTE BASOPHIL COUNT 0 /CUMM (0.0-0.2); ABSOLUTE EOSINOPHIL COUNT 0.1 /CUMM (0.0-0.7); ABSOLUTE GRANULOCYTE CT 2.8 /CUMM (1.4-6.5); ABSOLUTE LYMPH COUNT 1.3 /CUMM (1.2-3.4); ABSOLUTE MONOCYTE COUNT 0.4 /CUMM (0.10-0.60); BASOPHIL % 0.9 % (0.0-2.0); EOSINOPHIL % 1.1 % (0-5); GRANULOCYTE % 60.2 % (42.2-75.2); HEMATOCRIT 28.3 % (42-52); MEAN CORPUSCULAR HGB 26.3 PG (27.0-31.0); MEAN CORPUSCULAR HGB CONC 31.9 G/DL (33.0-37.0); MEAN CORPUSCULAR VOLUME 82.4 FL (80.0-94.0); MEAN PLATELET VOLUME 10.4 FL (7.4-10.4); PLATELET COUNT 169 /CUMM (130-400); RBC DISTRIBUTION WIDTH 17.2 % (11.5-14.5); RED BLOOD CELL CT 3.44 /CUMM (4.70-6.10); WHITE BLOOD CELL COUNT 4.7 /CUMM (4.8-10.8)
[2017-07-17 06:07] LABS: PT 12.6 SEC (9.4-12.5); PTT 32 SEC (25-37)
--- NOTE | 2017-07-17 08:09 | CT SCAN REPORT ---
EXAMINATION: CT CHEST WITHOUT CONTRAST CLINICAL INFORMATION: Syncope COMPARISON: None TECHNIQUE: Multidetector volumetric CT imaging of the chest was done. Axial MIP volume rendering provided. Sagittal and coronal reformatted images were obtained. According to technologist note, 95 mL of Optiray 350 iodinated contrast was administered although infiltrated in the left antecubital fossa. A warm compress was applied and Dr. Muse evaluated the patient. No IV access was available therefore this is a noncontrast chest CT. DLP: 842 mGy-cm FINDINGS: LUNGS: There is no focal consolidation or parenchymal mass. MEDIASTINUM: Extensive atherosclerotic calcifications of the coronary arteries. Mild atherosclerosis of the thoracic aorta. No aneurysmal dilatation. No mediastinal hematoma. PLEURA: Moderate left pleural effusion. AXILLA: No lymphadenopathy. UPPER ABDOMEN: Unremarkable. OSSEOUS STRUCTURES: Ununited sternum status post median sternotomy. There are fractures of the posteromedial right 1st and 2nd ribs adjacent to the costovertebral junctions. IMPRESSION: No thoracic aortic aneurysm or secondary sign of dissection. Absence of intraluminal contrast limits assessment. There are nondisplaced fractures of the right 1st and 2nd ribs posteromedially, adjacent to the costovertebral junctions. There is a moderate left pleural effusion.
--- NOTE | 2017-07-17 08:49 | History & Physical ---
Sammy Ramírez 07/17/17 0848: General Information and HPI MD Statement: I have seen and personally examined SUMAYA BAÑUELOS and documented this H&P. The patient is a 72 year old M who presented with a patient stated chief complaint of syncope. Source of Information: patient Exam Limitations: no limitations History of Present Illness: This is a 72-year-old male with past medical history significant for coronary artery disease status post CABG 05/30/2017 LARSEN to LAD and saphenous venous grafting, postoperative atrial fibrillation on amiodarone, not on anticoagulation because of anemia, hypertension, GERD, BPH, ischemic cardiomyopathy with ejection fraction 35%, borderline blood pressure, lupus, renal insufficiency, esophageal dysmotility, chronic anemia, bifascicular block, history of prior syncope was brought in by ambulance to the emergency room after an episode of syncope early this morning. Patient was admitted from July 12 to July 13 for an episode of syncope. Extensive workup was done for syncope at that time. Cardio and neuro Evaluation was done. CAT scan head, EEG, carotid artery Dopplers were negative. Serial sets of troponin were negative. He was found to have bifascicular block. He was advised to follow-up with internet cafe manager as an outpatient for outpatient loop recorder and EP evaluation. Also he has renal insufficiency after CABG with creatinine 1.9. Patient also has an anemia, follows Dr. Nguyen, had normal colonoscopy. He was found to have postoperative atrial fibrillation and started on amiodarone 100 daily however eliqus was discontinued because of anemia. patient went home on July 13. He was doing good over the weekend. However last night he had an episode of syncope. According to the , he was sitting in the chair and all of a sudden he was found lying on the ground. Patient was found to have loss of consciousness. He denied any prior dizziness or lightheadedness, chest pain or palpitations, short of breath. Denied any seizure episode. Denied any bladder or bowel incontinence. No post ictal confusion. Patient denies any chest pain, palpitations, short of breath, fever, chills, cough in the emergency room. Review of systems negative except for an episode of syncope. Denied smoking, alcohol abuse, illicit drug abuse. Echocardiogram from 06/04/2017 LVEF 40%, LVEF during cardiac catheterization 35% . Allergies/Medications Allergies: Coded Allergies: NO KNOWN ALLERGIES (01/20/12) Per [facility] nurse Lety. -- Vicky 01/20/12 Home Med list Amiodarone (Cordarone) 200 MG TAB 100 MG PO DAILY CARDIAC (Reported) Aspirin (Ecotrin*) 81 MG TABLET.DR 1 TAB PO DAILY CARDIAC (Reported) Atorvastatin Calcium 80 MG TABLET 1 TAB PO DAILY CHOLESTEROL (Reported) Ferrous Sulfate 325 MG (65 MG IRON) TABLET 1 TAB PO DAILY Iron Metoprolol Succ XL (Toprol XL) 100 MG TAB.ER.24H 1 TAB PO DAILY HTN (Reported ) Omeprazole 40 MG CAPSULE.DR 1 CAP PO BID GI Tamsulosin HCl 0.4 MG CAP.ER.24H 1 CAP PO DAILY URINE (Reported) Tamsulosin HCl (Flomax) 0.4 MG CAP.ER.24H 1 TAB PO DAILY BPH (Reported) Compliance With Home Meds: GOOD Past History Travel History Traveled to [place] past 21 day No Medical History Neurological: NONE EENT: NONE Cardiovascular: CAD, hypertension, A-FIB Respiratory: NONE Gastrointestinal: GERD Hepatic: NONE Renal: NONE Musculoskeletal: NONE Psychiatric: NONE Endocrine: NONE Blood Disorders: NONE Cancer(s): NONE MENTAL HYGIENIST/Reproductive: NONE History of MRSA: No History of VRE: No History of CDIFF: No Surgical History Surgical History: CABG Past Family/Social History Family History Relations & Conditions if any Relation not specified for: *No pertinent family history Psychosocial History 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 Smoking Status: Never Smoked ETOH Use: denies use Illicit Drug Use: denies illicit drug use Review of Systems Review of Systems Constitutional: Denies: chills, diaphoresis, fever, malaise, weakness, unexplained weight loss. EENTM: Denies: blurred vision, double vision, visual changes, ear discharge, ear pain, hearing changes. Cardiovascular: Reports: syncope. Denies: chest pain, edema, orthopena, palpitations, peripheral edema. Respiratory: Denies: cough, hemoptysis, orthopnea, short of breath, sputum production, stridor, wheezing. GI: Denies: abdominal pain, bloating, constipation, diarrhea, distention, bowel incontinence, melena, nausea, vomiting. Genitourinary: Denies: discharge, dysuria, frequency. Musculoskeletal: Denies: back pain, gout, joint pain. Neurological/Psychological: Denies: anxiety, ataxia, headache, numbness. Exam & Diagnostic Data Last 24 Hrs of Vital Signs/I&O Vital Signs Date Time Temp Pulse Resp B/P B/P Pulse O2 O2 Flow FiO2 Mean Ox Delivery Rate 07/17 0815 97.5 68 18 109/56 97 07/17 0542 97.6 68 18 151/79 97 Room Air 07/17 0349 66 18 138/66 07/17 0318 70 117/62 07/17 0203 96.4 68 16 84/54 96 Room Air Intake & Output 07/17 1600 07/17 0800 07/17 0000 Intake Total 1000 Output Total Balance 1000 Intake, IV 1000 Patient 131.542 kg Weight Weight Reported by Patient Measurement Method Physical Exam General Appearance Alert, Oriented X3, Cooperative, No Acute Distress Skin No Rashes, No Breakdown Skin Temp/Moisture Exam: Warm/Dry Sepsis Skin Exam (color): Normal for Ethnicity HEENT Atraumatic, PERRLA, EOMI, Mucous Membr. moist/pink Neck Supple, No JVD Lymphatic Cervical nl Cardiovascular Regular Rate, Normal S1, Normal S2, No Murmurs Lungs Normal Air Movement Abdomen Normal Bowel Sounds, Soft, No Tenderness Neurological Normal Speech, Strength at 5/5 X4 Ext, Cranial Nerves 3-12 NL, Reflexes 2+ Extremities No Clubbing, No Cyanosis, No Edema Vascular Pulses Symmetrical Last 24 Hrs of Labs/Brett: Laboratory Tests 07/17/17 0551: Lactic Acid 0.9 07/17/17 0551: Anion Gap 12, Estimated GFR 50 L, BUN/Creatinine Ratio 10.0, Glucose 97, Calcium 8.5, Total Bilirubin 0.5, Direct Bilirubin 0.2, AST 41, ALT 43, Alkaline Phosphatase 91, Troponin I 0.03, Total Protein 6.8, Albumin 3.6, Amylase 75, Lipase 100, PT 12.6 H, INR 1.20 H, APTT 32, D-Dimer High Sensitivty 533 H, Serum Alcohol < 10.0 07/17/17 0519: Lactic Acid Cancelled 07/17/17 0400: CBC w Diff NO MAN DIFF REQ, RBC 3.44 L, MCV 82.4, MCH 26.3 L, MCHC 31.9 L, RDW 17.2 H, MPV 10.4, Gran % 60.2, Lymphocytes % 28.7, Monocytes % 9.1, Eosinophils % 1.1, Basophils % 0.9, Absolute Granulocytes 2.8, Absolute Lymphocytes 1.3, Absolute Monocytes 0.4, Absolute Eosinophils 0.1, Absolute Basophils 0 07/17/17 0213: Serum Alcohol Cancelled Microbiology 07/17 05 SHERIDANN: Influenza Virus A & B Rapid Smear - COMP Assessment/Plan Assessment: This is a 72-year-old male with past medical history significant for coronary artery disease status post CABG 05/30/2017 LARSEN to LAD and saphenous venous grafting, postoperative atrial fibrillation on amiodarone, not on anticoagulation because of anemia, hypertension, GERD, BPH, ischemic cardiomyopathy with ejection fraction 35%, borderline blood pressure, lupus, renal insufficiency, esophageal dysmotility, chronic anemia, bifascicular block, history of prior syncope was brought in by ambulance to the emergency room after an episode of syncope early this morning. Patient was admitted from July 12 to July 13 for an episode of syncope. Extensive workup was done for syncope at that time. Cardio and neuro Evaluation was done. CAT scan head, EEG, carotid artery Dopplers were negative. Serial sets of troponin were negative. He was found to have bifascicular block. He was advised to follow-up with internet cafe manager as an outpatient for outpatient loop recorder and EP evaluation. Also he has renal insufficiency after CABG with creatinine 1.9. Patient also has an anemia, follows Dr. Nguyen, had normal colonoscopy. He was found to have postoperative atrial fibrillation and started on amiodarone 100 daily however eliqus was discontinued because of anemia. Vitals afebrile, heart rate 68, respiratory rate 16, blood pressure 84/54, improved 150/70 after 1 L bolus, 96 on room air. WBC 4.7, hemoglobin 9 and hematocrit 28, platelets 169. BUN 14 and creatinine 1.4. Initial troponin negative. Cervical spine CT, head CT, chest x-ray was normal. EKG showed sinus rhythm, rate 66, first-degree AV block, MT interval 232, right bundle branch block, left anterior fascicular block, left ventricular hypertrophy. Impression * Syncopal episode. Patient's extensive cardiac history including his bifascicular block is concerning for a cardiac etiology being the cause of patient's syncopal episode. Also be noted that patient with ischemic cardiomyopathy and a depressed ejection fraction around 35% have an increased risk of developing ventricular arrhythmias which could dispose patient to syncopal episode. It is unlikely that patient had a seizure activity as there was no shaking or tremor-like activity noted, bowel or urinary incontinence, tongue biting or the postictal confusion. Vasovagal syncope always a possible etiology however the lack of prodromal symptoms and given an extensive cardiac history including conduction abnormalities in this patient makes this etiology a low possibility, as will be more of a diagnosis of exclusion. * Renal insufficiency. Not clear if this is AMANUEL, as for longtime patient baseline was 1.0 until post operative CABG phase about a month ago when creatinine was 1.6. Was likely causes include contrast and postoperative kidney injury, cardiorenal CHF, or medication induced. * Atrial fibrillation on rhythm control with amiodarone * History of ischemic cardiomyopathy and EF of 35-40% * Acute on chronic Anemia. Normocytic. No acute bleeding. * Fractures of the posterior right first and second ribs. Minimal callus formation is noted suggesting these are subacute. Plan Place at telemetry for close cardiac monitoring Initial troponin negative will trend x2 with EKG Decrease metoprolol to 25 from 100mg. stop flomax Cardiology is on board, will continue to follow recommendation Will trend BEP to monitor renal function and avoid any nephrotoxic agents 500ml fluids given his borderline BP Continue amiodarone for atrial fibrillation Continue aspirin, Lipitor given coronary artery disease Continue metoprolol 25 mg daily given coronary artery disease Continue omeprazole CODE STATUS: fc DVT prophylaxis:sc heparin Heart healthy diet As Ranked By This Provider Problem List: 1. Syncope Core Measures/Misc (03/05) Acute Coronary Syndrome ACS Diagnosis: No Congestive Heart Failure Congestive Heart Failure Diagnosis No Cerebrovascular Accident CVA/TIA Diagnosis: No VTE (View Protocol) VTE Risk Factors Acute Medical Illness No Mechanical VTE Prophylaxis d/t N/A MechProphylax Ordered No VTE Pharm Prophylaxis d/t NA PharmProphylax ordered Sepsis (View protocol) Sepsis Present: No [facility] 1406: Attending MD Review Statement Attending Statement Attending MD Statement: examined this patient, discuss w/resident/PA/PARISH NURSE, agreed w/resident/PA/PARISH NURSE, discussed with family, reviewed EMR data (avail), discussed with nursing, discussed with case mgmt, reviewed images, amended to note Attending Assessment/Plan: As above CT chest IMPRESSION: No thoracic aortic aneurysm or secondary sign of dissection. Absence of intraluminal contrast limits assessment. There are nondisplaced fractures of the right 1st and 2nd ribs posteromedially, adjacent to the costovertebral junctions. There is a moderate left pleural effusion. DICTATED BY: Anders Pate MD DATE/TIME DICTATED:07/17/17 / 0755 This is a 72-year-old male with past medical history significant for coronary artery disease status post CABG 05/30/2017 LARSEN to LAD and saphenous venous grafting, postoperative atrial fibrillation on amiodarone, not on anticoagulation because of anemia, hypertension, GERD, BPH, ischemic cardiomyopathy with ejection fraction 35%, borderline blood pressure, mild renal insufficiency, esophageal dysmotility, chronic anemia, bifascicular block, history of prior syncope was brought in by ambulance to the emergency room after an episode of syncope early this morning. IMPRESSION * Syncope with previous eeg normal prob related to meds vs rule out vt * Previous hypotension, now better * Stable anemia with worsening hemoglobin, now with heme positive stool, his NOAC has been stopped and on asa * Recent CABG with Coronary disease status post coronary bypass surgery 2016 with LARSEN to the LAD, saphenous vein graft to the obtuse marginal and PDA * Post op Afib on amiodarone, initially was on eloquis which was stopped recently and now in sinus * HTN * OBesity * CKD after CABG stable * Bifasicular block and other ekg changes * Ischemic cardiomyopathy with lw ef * Left lower lobe partial atx, prob a sequalae of CABG, with a small effusion due to his recent cabg * Esophageal dysmotility * Anemia needs follow up, gi eval soon,with heme positive stool * Rib fracture nondisplaced rt 1st and 2nd from previous fall needs follow up * Effusion left mod may need to be tapped soon if not better REC DC ivf Admit needs ep study Reduce betablocker to 25 and dc flomax Stop amiodarone Check orthostatics PO ppi Cont asa Need thora if effusions gets worse in the near future will follow Discussed with cardio
--- NOTE | 2017-07-17 12:43 | Cons- Cardiology ---
General Information and HPI Consulting Request Date of Consult: 07/17/17 Requested By: Alonso PADILLA,Issac Garcia Reason for Consult: syncope Source of Information: patient, old records History of Present Illness: This is a 72-year-old male with a past medical history of coronary artery disease status post bypass surgery on 05/30/2017, postoperative atrial fibrillation without recurrence (Eliquis stopped); postoperative renal insufficiency with new baseline creatinine of 1.4, ischemic cardiomyopathy with ejection fraction 35-40%, conduction disease by ECG, syncope, anemia with guiac + stools, and history of hypertension who presents to [facility] with recurrent syncope. Patient was recently admitted for syncope with no obvious events on telemetry and normal EEG; was discharged with plan for outpatient monitoring and possible EP study but now presents with a recurrent episode of loss of consciousness while he was sitting in a chair. Denies any associated chest pain, dyspnea, or palpitations. No reported bowel or bladder incontinence. Denies increasing edema and also denies any orthopnea/paroxysmal nocturnal dyspnea. Denies subjective fevers or decreased by mouth intake. Reports compliance with his medications. Allergies/Medications Allergies: Coded Allergies: NO KNOWN ALLERGIES (01/20/12) Per [facility] nurse Lety. -- Vicky 01/20/12 Home Med List: Amiodarone (Cordarone) 200 MG TAB 100 MG PO DAILY CARDIAC (Reported) Aspirin (Ecotrin*) 81 MG TABLET.DR 1 TAB PO DAILY CARDIAC (Reported) Atorvastatin Calcium 80 MG TABLET 1 TAB PO DAILY CHOLESTEROL (Reported) Ferrous Sulfate 325 MG (65 MG IRON) TABLET 1 TAB PO DAILY Iron Metoprolol Succ XL (Toprol XL) 100 MG TAB.ER.24H 1 TAB PO DAILY HTN (Reported ) Omeprazole 40 MG CAPSULE.DR 1 CAP PO BID GI Tamsulosin HCl 0.4 MG CAP.ER.24H 1 CAP PO DAILY URINE (Reported) Tamsulosin HCl (Flomax) 0.4 MG CAP.ER.24H 1 TAB PO DAILY BPH (Reported) Current Medications: Current Medications Sig/Melanie Start time Last Medication Dose Route Stop Time Status Admin Acetaminophen 650 MG Q6P PRN 07/17 0845 AC PO Amiodarone HCl 100 MG DAILY 07/17 1000 AC 07/17 PO 1050 Aspirin Buffered 81 MG DAILY 07/17 1000 AC 07/17 PO 1050 Atorvastatin Calcium 80 MG 1700 07/17 1700 AC PO Ferrous Sulfate 325 MG DAILY 07/17 1000 AC 07/17 PO 1050 Heparin Sodium 5,000 UNIT Q8 07/17 2200 AC (Porcine) SC Metoprolol Succinate 25 MG DAILY 07/18 1000 AC PO Metoprolol Succinate 100 MG DAILY 07/17 1000 DC 07/17 PO 1050 Omeprazole 40 MG DAILY AC 07/17 0846 AC 07/17 PO 1050 Sodium Chloride 500 ML BOLUS ONE 07/17 1030 DC IV 07/17 1129 Sodium Chloride 50 ML BOLUS ONE 07/17 1015 DC IV 07/17 1020 Tamsulosin HCl 0.4 MG DAILY 07/17 1000 DC 07/17 PO 1050 Past History Travel History Traveled to [place] past 21 day No Medical History Neurological: NONE EENT: NONE Cardiovascular: CAD, hypertension, A-FIB Respiratory: NONE Gastrointestinal: GERD Hepatic: NONE Renal: NONE Musculoskeletal: NONE Psychiatric: NONE Endocrine: NONE Blood Disorders: NONE Cancer(s): NONE EPIDEMIOLOGIST/Reproductive: NONE Surgical History Surgical History: CABG Family History Relations & Conditions If Any: Relation not specified for: *No pertinent family history Psychosocial History 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 Smoking Status: Never Smoked ETOH Use: denies use Illicit Drug Use: denies illicit drug use Exam & Diagnostic Data Vital Signs and I&O Vital Signs Date Time Temp Pulse Resp B/P B/P Pulse O2 O2 Flow FiO2 Mean Ox Delivery Rate 07/17 1050 97.1 72 20 155/72 07/17 1050 97.1 72 20 155/72 07/17 1050 97.1 72 20 155/72 07/17 1047 97.1 72 20 155/72 97 Room Air 07/17 0815 97.5 68 18 109/56 97 07/17 0542 97.6 68 18 151/79 97 Room Air 07/17 0349 66 18 138/66 07/17 0318 70 117/62 07/17 0203 96.4 68 16 84/54 96 Room Air Intake & Output 07/17 1600 07/17 0800 07/17 0000 07/16 1600 07/16 0800 07/16 0000 Intake Total 1000 Output Total Balance 1000 Intake, IV 1000 Patient 290 lb Weight Weight Reported by Patient Measurement Method Physical Exam: General: no apparent distress. Alert. Eyes: No obvious scleral icterus. HEENT: No jugular venous distention or abnormal jugular venous pulsations. Cardiovascular: Normal intensity S1/S2. Regular, CABG scar Respiratory: No rales or rhonchi Abdomen: Soft, nontender with no guarding or rebound tenderness. Musculoskeletal: No clubbing or cyanosis noted Skin: No obvious rashes or ulcerations. Neurologic: No gross focal deficits noted. Labs/Brett Results: Laboratory Tests 07/17 07/17 07/17 07/17 1030 0551 0551 0519 Chemistry Sodium (137 - 145 mmol/L) 142 Potassium (3.5 - 5.1 mmol/L) 4.3 Chloride (98 - 107 mmol/L) 103 Carbon Dioxide (22 - 30 mmol/L) 28 Anion Gap (5 - 16) 12 BUN (9 - 20 mg/dL) 14 Creatinine (0.7 - 1.2 mg/dL) 1.4 H Estimated GFR (>60 ml/min) 50 L BUN/Creatinine Ratio (7 - 25 %) 10.0 Glucose (65 - 99 mg/dL) 97 Lactic Acid (0.7 - 2.1 mmol/L) 0.9 Cancelled Calcium (8.4 - 10.2 mg/dL) 8.5 Total Bilirubin (0.2 - 1.3 mg/dL) 0.5 Direct Bilirubin (< 0.4 mg/dL) 0.2 AST (17 - 59 U/L) 41 ALT (21 - 72 U/L) 43 Alkaline Phosphatase (< 127 U/L) 91 Troponin I (<0.11 ng/ml) 0.03 0.03 Total Protein (6.3 - 8.2 g/dL) 6.8 Albumin (3.5 - 5.0 g/dL) 3.6 Amylase (30 - 110 U/L) 75 Lipase (23 - 300 U/L) 100 Coagulation PT (9.4 - 12.5 SEC) 12.6 H INR (0.90 - 1.17) 1.20 H APTT (25 - 37 SEC) 32 D-Dimer High Sensitivty (0 - 243 ng/ml) 533 H Toxicology Serum Alcohol (<10 MG/DL) < 10.0 07/17 07/17 0400 0213 Hematology CBC w Diff NO MAN DIFF REQ WBC (4.8 - 10.8 /CUMM) 4.7 L RBC (4.70 - 6.10 /CUMM) 3.44 L Hgb (14.0 - 18.0 G/DL) 9.0 L Hct (42 - 52 %) 28.3 L MCV (80.0 - 94.0 FL) 82.4 MCH (27.0 - 31.0 PG) 26.3 L MCHC (33.0 - 37.0 G/DL) 31.9 L RDW (11.5 - 14.5 %) 17.2 H Plt Count (130 - 400 /CUMM) 169 MPV (7.4 - 10.4 FL) 10.4 Gran % (42.2 - 75.2 %) 60.2 Lymphocytes % (20.5 - 51.1 %) 28.7 Monocytes % (1.7 - 9.3 %) 9.1 Eosinophils % (0 - 5 %) 1.1 Basophils % (0.0 - 2.0 %) 0.9 Absolute Granulocytes (1.4 - 6.5 /CUMM) 2.8 Absolute Lymphocytes (1.2 - 3.4 /CUMM) 1.3 Absolute Monocytes (0.10 - 0.60 /CUMM) 0.4 Absolute Eosinophils (0.0 - 0.7 /CUMM) 0.1 Absolute Basophils (0.0 - 0.2 /CUMM) 0 Toxicology Serum Alcohol Cancelled Diagnostic Data EKG Results Tracing was personally reviewed and shows sinus rhythm with first-degree AV block with bifascicular block CXR Results Low lung volumes with no acute pulmonary findings. Other Results Recent carotid: 1. Minimal calcified atherosclerotic plaque is present within the bilateral carotid systems as described in detail above, with no significant luminal narrowing. 2. No significant carotid stenosis as determined by criteria similar to NASCET. 3. As noted, antegrade flow is demonstrated in both left and right vertebral arteries. Head CT: 1. No acute intracranial findings. 2. No acute fracture or malalignment involving the cervical spine. Moderate multilevel degenerative changes. 3. Fractures of the posterior right first and second ribs. Minimal callus formation is noted suggesting these are subacute. Assessment/Plan Assessment/Plan 1. Coronary disease status post coronary bypass surgery 05/30/2017 with LARSEN to the LAD, saphenous vein graft to the obtuse marginal and PDA 2. Postoperative atrial fibrillation on amiodarone/Eliquis 3. Postoperative renal insufficiency now with new baseline creatinine of 1.4 4. Hypertension by history stable blood pressure. 5. Obesity 6. Recurrent syncopal episodes of uncertain etiology 7. Ischemic cardiomyopathy with ejection fraction 35-40% 8. Conduction disease by ECG with bifascicular block and first degree AV block 9. Anemia/ recent occult positive stool by guaiac; followed by GI The patient presents with recurrent syncope of unclear etiology. His initial blood pressure was low and agree with decreasing his outpatient beta samuel for now. Can hold off on adding ARB for now but this will be needed in the future given his low EF. Recommend obtaining a repeat echocardiogram. We had initially planned for outpatient EP study but given his recurrent syncope with conduction disease by ECG and history of ischemic cardiomyopathy we will plan for transfer tomorrow for EP study with additional evaluation for possible pacemaker/ICD versus possible implantable loop recorder. Would discontinue his amiodarone for now. Continue daily aspirin and maintain on telemetry. Tray Lane MD [facility] Consult Acknowledgment - Thank you for your consult request.
--- NOTE | 2017-07-17 17:50 | Discharge Summary ---
Visit Information Visit Dates Admission Date: 07/17/17 Discharge Date: 07/18/2017 Hospital Course Course Attending Physician: Issac Gupta MD Primary Care Physician: Issac Gupta MD Hospital Course: This is a 72-year-old male with past medical history significant for coronary artery disease status post CABG 05/30/2017 LARSEN to LAD and saphenous venous grafting, postoperative atrial fibrillation on amiodarone, not on anticoagulation because of anemia, hypertension, GERD, BPH, ischemic cardiomyopathy with ejection fraction 35%, borderline blood pressure, lupus, renal insufficiency, esophageal dysmotility, chronic anemia, bifascicular block, history of prior syncope was brought in by ambulance to the emergency room after an episode of syncope early this morning. Patient was admitted from July 12 to July 13 for an episode of syncope. Extensive workup was done for syncope at that time. Cardio and neuro Evaluation was done. CAT scan head, EEG, carotid artery Dopplers were negative. Serial sets of troponin were negative. He was found to have bifascicular block. He was advised to follow-up with director diabetes as an outpatient for outpatient loop recorder and EP evaluation. Also he has renal insufficiency after CABG with creatinine 1.9. Patient also has an anemia, follows Dr. Nguyen, had normal colonoscopy. He was found to have postoperative atrial fibrillation and started on amiodarone 100 daily however eliqus was discontinued because of anemia. Vitals afebrile, heart rate 68, respiratory rate 16, blood pressure 84/54, improved 150/70 after 1 L bolus, 96 on room air. WBC 4.7, hemoglobin 9 and hematocrit 28, platelets 169. BUN 14 and creatinine 1.4. Initial troponin negative. Cervical spine CT, head CT, chest x-ray was normal. EKG showed sinus rhythm, rate 66, first-degree AV block, TX interval 232, right bundle branch block, left anterior fascicular block, left ventricular hypertrophy. He was placed under observation in telemetry and treated for these medical conditions Syncopal episode. Patient's extensive cardiac history including his bifascicular block is concerning for a cardiac etiology being the cause of patient's syncopal episode. ACS RULED OUT. we stopped amiodarone AND FLOMAX.metorolol decreased to 25 mg. patient was transferred to [facility] for EP study. Renal insufficiency: stale Acute on chronic Anemia: H and H stable. Fractures of the posterior right first and second ribs: Minimal callus formation is noted suggesting these are subacute. Allergies: Coded Allergies: NO KNOWN ALLERGIES (01/20/12) Per STS nurse Lety. -- Benon 01/20/12 Pertinent Lab Results: PATIENT: SUMAYA BAÑUELOS PRESENT AGE: 72 PATIENT ACCOUNT NO: [id number] : 43 LOCATION: [facility] ORDERING PHYSICIAN: Jovani Steve MD SERVICE DATE: 07/17/17- EXAM TYPE: CARD - ECHOCARDIOGRAM SUMAYA BAÑUELOS Age: 72 : 1945 Gender: M Exam Date: 07/17/2017 16:53 Exam Location: ER Ht (in): 71 Wt (lb): 290 BSA: 2.62 BP: 130 / 64 Ordering Physician: Jovani Steve MD Referring Physician: Jer Lane M.D. Technologist: Chinyere Davenport RDCS Room Number: ER#[id number] Indications: PRESYNCOPE/SYNCOPE Rhythm: Technical Quality: Technically difficult study FINDINGS Left Ventricle Left ventricular cavity size normal. Left ventricular wall thickness mildly increased. No obvious regional wall motion abnormalities. Normal left ventricular ejection fraction visually estimated at > 55 Right Ventricle Normal right ventricular size and function. Right Atrium Normal right atrial size. Left Atrium Normal left atrial size. Mitral Valve Structurally normal mitral valve. Xlbc-sw-pjvqtknv mitral regurgitation. Aortic Valve No aortic stenosis. Trileaflet aortic valve. Tricuspid Valve Tricuspid valve not well visualized, grossly normal. Trace to mild tricuspid regurgitation. Unable to estimate the right ventricular systolic pressure. Pulmonic Valve Pulmonic valve not well visualized, grossly normal. Pericardium No pericardial effusion. Great Vessels Normal size aortic root. CONCLUSIONS Technically difficult study. Left ventricular cavity size normal. Left ventricular wall thickness mildly increased. No obvious regional wall motion abnormalities. Normal left ventricular ejection fraction visually estimated at > 55 %. Normal right ventricular size and function. Ruyl-da-grexsghh mitral regurgitation. Unable to estimate the right ventricular systolic pressure. No pericardial effusion. Jer Lane M.D. (Electronically Signed) Final Date: 17 July 2017 23:32 MEASUREMENTS (Male / Female) Normal Values 2D ECHO LV Diastolic Diameter PLAX 4.2 cm 4.2 - 5.9 / 3.9 - 5.3 cm LV Systolic Diameter PLAX 2.3 cm 2.1 - 4.0 cm LV Fractional Shortening PLAX 45.2 % 25 - 46 % LV Ejection Fraction 2D Teich 76.9 % IVS Diastolic Thickness 1.5 cm LVPW Diastolic Thickness 1.6 cm LV Relative Wall Thickness 0.7 RV Internal Dim ED PLAX 3.4 cm 1.9 - 3.8 cm LVOT Diameter 2.1 cm Aortic Root Diameter 3.4 cm LA Systolic Diameter LX 4.4 cm 3.0 - 4.0 / 2.7 - 3.8 cm LA Volume 51.0 cm 18 - 58 / 22 - 52 cm Ascending Aorta Diameter 3.5 cm DOPPLER AV Peak Velocity 117.0 cm/s AV Peak Gradient 5.5 mmHg AV Mean Velocity 84.9 cm/s AV Mean Gradient 3.0 mmHg AV Velocity Time Integral 25.8 cm LVOT Peak Velocity 91.7 cm/s LVOT Peak Gradient 3.4 mmHg LVOT Mean Velocity 65.8 cm/s LVOT Mean Gradient 2.0 mmHg LVOT Velocity Time Integral 20.1 cm LVOT Stroke Volume 69.6 cm AV Area Cont Eq vti 2.7 cm AV Area Cont Eq pk 2.7 cm MV Peak Velocity 112.0 cm/s MV Peak Gradient 5.0 mmHg MV Mean Velocity 56.5 cm/s MV Mean Gradient 2.0 mmHg Mitral E Point Velocity 77.0 cm/s Mitral A Point Velocity 75.0 cm/s Mitral E to A Ratio 1.0 MV PHT Velocity 99.9 cm/s MV Deceleration [place] 535.0 cm/s MV Pressure Half Time 56.0 ms MV Area PHT 3.9 cm MV Deceleration Time 256.0 ms TR Peak Velocity 292.0 cm/s TR Peak Gradient 34.1 mmHg Right Atrial Pressure 5.0 mmHg Pulmonary Artery Systolic Pressu 39.1 mmHg Right Ventricular Systolic Press 39.1 mmHg PV Peak Velocity 106.0 cm/s PV Peak Gradient 4.5 mmHg PV Mean Velocity 67.4 cm/s PV Mean Gradient 2.0 mmHg PV Velocity Time Integral 28.4 cm LV E' Lateral Velocity 7.8 cm/s Mitral E to LV E' Lateral Ratio 9.9 LV E' Septal Velocity 5.0 cm/s Mitral E to LV E' Septal Ratio 15.5 DICTATED BY: Jer Lane MD DATE/TIME DICTATED:07/17/172332 ASSESSMENT NURSE PRACTITIONER:SKYLER DATE/TIME TRANSCRIBED:07/17/172332 CONFIDENTIAL, DO NOT COPY WITHOUT APPROPRIATE AUTHORIZATION. <Electronically signed in Other Vendor System> SIGNED BY: Jer Lane MD 07/17/172332 ====== PATIENT: SUMAYA BAÑUELOS PRESENT AGE: 72 PATIENT ACCOUNT NO: [id number] : 43 LOCATION: [facility] ORDERING PHYSICIAN: Florian Landrum MD SERVICE DATE: 07/17/17 EXAM TYPE: CAT - CT CERV SPINE WO IV CONTRAST; CT HEAD WO IV CONTRAST EXAMINATION: NONCONTRAST HEAD CT NONCONTRAST CERVICAL SPINE CT INDICATION INFORMATION: Syncope, fall, head injury COMPARISON: 07/11/2017 TECHNIQUE: Separate noncontrast CT examinations of the head and cervical spine were performed. Coronal and sagittal images were created for each examination at the technologist workstation. DLP: 1032 mGy-cm FINDINGS: Head: There is no evidence of acute intracranial hemorrhage or territorial infarction. No abnormal mass effect or midline shift is seen. Du to white matter differentiation is well preserved. No extra-axial fluid collections are identified. No hydrocephalus. Proportional prominence of the ventricles and sulcal spaces is consistent with mild volume loss. Patchy periventricular and deep white matter hypoattenuation is consistent with mild small vessel ischemic changes. The osseous structures and soft tissues are normal. The mastoid air cells and visualized portions of the paranasal sinuses are well aerated. Cervical spine: There is anatomic alignment of the vertebral bodies and posterior elements. The atlantoaxial and atlantooccipital articulations are intact. Vertebral body heights are maintained. There is multilevel intervertebral disc space narrowing with endplate osteophyte formation and facet arthropathy. No evidence of acute cervical spine fracture. There are nondisplaced fractures of the right posterior first and second ribs. Minimal early callus formation is likely present. No prevertebral soft tissue swelling. Visualized portions of the lung apices are unremarkable. The thyroid gland is unremarkable. IMPRESSION: 1. No acute intracranial findings. 2. No acute fracture or malalignment involving the cervical spine. Moderate multilevel degenerative changes. 3. Fractures of the posterior right first and second ribs. Minimal callus formation is noted suggesting these are subacute. DICTATED BY: Wang Malcolm MD DATE/TIME DICTATED:07/17/17242 ASSESSMENT NURSE PRACTITIONER:SKYLER DATE/TIME TRANSCRIBED:07/17/17242 CONFIDENTIAL, DO NOT COPY WITHOUT APPROPRIATE AUTHORIZATION. <Electronically signed in Other Vendor System> SIGNED BY: Wang Malcolm MD 07/17 ========= PATIENT: SUMAYA BAÑUELOS PRESENT AGE: 72 PATIENT ACCOUNT NO: [id number] : 43 LOCATION: [facility] ORDERING PHYSICIAN: Florian Landrum MD SERVICE DATE: 07/17/17 EXAM TYPE: RAD - XRY-PORTABLE CHEST XRAY EXAMINATION: XR PORTABLE CHEST CLINICAL INFORMATION: Syncope. COMPARISON: Multiple priors, including the cervical spine radiographs from today and chest radiograph from 05/24/2017 TECHNIQUE: Portable frontal view of the chest was obtained. FINDINGS: Median sternotomy wires appear intact. Lung volumes are low. No consolidation, edema, or effusion. No pneumothorax. The cardiomediastinal silhouette is unchanged. The nondisplaced right posterior first and second rib fractures are not well visualized on this study. IMPRESSION: Low lung volumes with no acute pulmonary findings. DICTATED BY: Wang Malcolm MD DATE/TIME DICTATED:07/17/17246 ASSESSMENT NURSE PRACTITIONER:SKYLER DATE/TIME TRANSCRIBED:07/17/17246 CONFIDENTIAL, DO NOT COPY WITHOUT APPROPRIATE AUTHORIZATION. <Electronically signed in Other Vendor System> SIGNED BY: Wang Malcolm MD 07/17 PATIENT: SUMAYA BAÑUELOS PRESENT AGE: 72 PATIENT ACCOUNT NO: [id number] : 43 LOCATION: [facility] ORDERING PHYSICIAN: Florian Landrum MD SERVICE DATE: 07/17/17 EXAM TYPE: CAT - CT CERV SPINE WO IV CONTRAST; CT HEAD WO IV CONTRAST EXAMINATION: NONCONTRAST HEAD CT NONCONTRAST CERVICAL SPINE CT INDICATION INFORMATION: Syncope, fall, head injury COMPARISON: 07/11/2017 TECHNIQUE: Separate noncontrast CT examinations of the head and cervical spine were performed. Coronal and sagittal images were created for each examination at the technologist workstation. DLP: 1032 mGy-cm FINDINGS: Head: There is no evidence of acute intracranial hemorrhage or territorial infarction. No abnormal mass effect or midline shift is seen. Du to white matter differentiation is well preserved. No extra-axial fluid collections are identified. No hydrocephalus. Proportional prominence of the ventricles and sulcal spaces is consistent with mild volume loss. Patchy periventricular and deep white matter hypoattenuation is consistent with mild small vessel ischemic changes. The osseous structures and soft tissues are normal. The mastoid air cells and visualized portions of the paranasal sinuses are well aerated. Cervical spine: There is anatomic alignment of the vertebral bodies and posterior elements. The atlantoaxial and atlantooccipital articulations are intact. Vertebral body heights are maintained. There is multilevel intervertebral disc space narrowing with endplate osteophyte formation and facet arthropathy. No evidence of acute cervical spine fracture. There are nondisplaced fractures of the right posterior first and second ribs. Minimal early callus formation is likely present. No prevertebral soft tissue swelling. Visualized portions of the lung apices are unremarkable. The thyroid gland is unremarkable. IMPRESSION: 1. No acute intracranial findings. 2. No acute fracture or malalignment involving the cervical spine. Moderate multilevel degenerative changes. 3. Fractures of the posterior right first and second ribs. Minimal callus formation is noted suggesting these are subacute. DICTATED BY: Wang Malcolm MD DATE/TIME DICTATED:07/17/17242 ASSESSMENT NURSE PRACTITIONER:SKYLER DATE/TIME TRANSCRIBED:07/17/17242 CONFIDENTIAL, DO NOT COPY WITHOUT APPROPRIATE AUTHORIZATION. <Electronically signed in Other Vendor System> SIGNED BY: Wang Malcolm MD 07/17 0250 PATIENT: SUMAYA BAÑUELOS PRESENT AGE: 72 PATIENT ACCOUNT NO: [id number] : 43 LOCATION: [facility] ORDERING PHYSICIAN: Florian Landrum MD SERVICE DATE: 07/17/17 EXAM TYPE: CAT - CT CHEST WO IV CONTRAST EXAMINATION: CT CHEST WITHOUT CONTRAST CLINICAL INFORMATION: Syncope COMPARISON: None TECHNIQUE: Multidetector volumetric CT imaging of the chest was done. Axial MIP volume rendering provided. Sagittal and coronal reformatted images were obtained. According to technologist note, 95 mL of Optiray 350 iodinated contrast was administered although infiltrated in the left antecubital fossa. A warm compress was applied and Dr. Muse evaluated the patient. No IV access was available therefore this is a noncontrast chest CT. DLP: 842 mGy-cm FINDINGS: LUNGS: There is no focal consolidation or parenchymal mass. MEDIASTINUM: Extensive atherosclerotic calcifications of the coronary arteries. Mild atherosclerosis of the thoracic aorta. No aneurysmal dilatation. No mediastinal hematoma. PLEURA: Moderate left pleural effusion. AXILLA: No lymphadenopathy. UPPER ABDOMEN: Unremarkable. OSSEOUS STRUCTURES: Ununited sternum status post median sternotomy. There are fractures of the posteromedial right 1st and 2nd ribs adjacent to the costovertebral junctions. IMPRESSION: No thoracic aortic aneurysm or secondary sign of dissection. Absence of intraluminal contrast limits assessment. There are nondisplaced fractures of the right 1st and 2nd ribs posteromedially, adjacent to the costovertebral junctions. There is a moderate left pleural effusion. DICTATED BY: Anders Pate MD DATE/TIME DICTATED:07/17/17754 ASSESSMENT NURSE PRACTITIONER:SKYLER DATE/TIME TRANSCRIBED:07/17/17754 CONFIDENTIAL, DO NOT COPY WITHOUT APPROPRIATE AUTHORIZATION. <Electronically signed in Other Vendor System> SIGNED BY: Anders Pate MD [id number] Laboratory Tests 07/18 07/17 07/17 07/17 0603 1539 1030 0551 Chemistry Sodium (137 - 145 mmol/L) 143 Potassium (3.5 - 5.1 mmol/L) 5.3 H Chloride (98 - 107 mmol/L) 101 Carbon Dioxide (22 - 30 mmol/L) 30 Anion Gap (5 - 16) 12 BUN (9 - 20 mg/dL) 14 Creatinine (0.7 - 1.2 mg/dL) 1.3 H Estimated GFR (>60 ml/min) 54 L BUN/Creatinine Ratio (7 - 25 %) 10.8 Lactic Acid (0.7 - 2.1 mmol/L) 0.9 Troponin I (<0.11 ng/ml) 0.03 0.03 Hematology CBC w Diff NO MAN DIFF REQ WBC (4.8 - 10.8 /CUMM) 4.0 L RBC (4.70 - 6.10 /CUMM) 3.52 L Hgb (14.0 - 18.0 G/DL) 9.1 L Hct (42 - 52 %) 28.7 L MCV (80.0 - 94.0 FL) 81.8 MCH (27.0 - 31.0 PG) 26.0 L MCHC (33.0 - 37.0 G/DL) 31.8 L RDW (11.5 - 14.5 %) 16.8 H Plt Count (130 - 400 /CUMM) 193 MPV (7.4 - 10.4 FL) 10.1 Gran % (42.2 - 75.2 %) 40.3 L Lymphocytes % (20.5 - 51.1 %) 42.4 Monocytes % (1.7 - 9.3 %) 12.4 H Eosinophils % (0 - 5 %) 3.2 Basophils % (0.0 - 2.0 %) 1.7 Absolute Granulocytes (1.4 - 6.5 /CUMM) 1.6 Absolute Lymphocytes (1.2 - 3.4 /CUMM) 1.7 Absolute Monocytes (0.10 - 0.60 /CUMM) 0.5 Absolute Eosinophils (0.0 - 0.7 /CUMM) 0.1 Absolute Basophils (0.0 - 0.2 /CUMM) 0.1 07/17 07/17 07/17 0551 0519 0400 Chemistry Sodium (137 - 145 mmol/L) 142 Potassium (3.5 - 5.1 mmol/L) 4.3 Chloride (98 - 107 mmol/L) 103 Carbon Dioxide (22 - 30 mmol/L) 28 Anion Gap (5 - 16) 12 BUN (9 - 20 mg/dL) 14 Creatinine (0.7 - 1.2 mg/dL) 1.4 H Estimated GFR (>60 ml/min) 50 L BUN/Creatinine Ratio (7 - 25 %) 10.0 Glucose (65 - 99 mg/dL) 97 Lactic Acid Cancelled Calcium (8.4 - 10.2 mg/dL) 8.5 Total Bilirubin (0.2 - 1.3 mg/dL) 0.5 Direct Bilirubin (< 0.4 mg/dL) 0.2 AST (17 - 59 U/L) 41 ALT (21 - 72 U/L) 43 Alkaline Phosphatase (< 127 U/L) 91 Troponin I (<0.11 ng/ml) 0.03 Total Protein (6.3 - 8.2 g/dL) 6.8 Albumin (3.5 - 5.0 g/dL) 3.6 Amylase (30 - 110 U/L) 75 Lipase (23 - 300 U/L) 100 Coagulation PT (9.4 - 12.5 SEC) 12.6 H INR (0.90 - 1.17) 1.20 H APTT (25 - 37 SEC) 32 D-Dimer High Sensitivty (0 - 243 ng/ml) 533 H Hematology CBC w Diff NO MAN DIFF REQ WBC (4.8 - 10.8 /CUMM) 4.7 L RBC (4.70 - 6.10 /CUMM) 3.44 L Hgb (14.0 - 18.0 G/DL) 9.0 L Hct (42 - 52 %) 28.3 L MCV (80.0 - 94.0 FL) 82.4 MCH (27.0 - 31.0 PG) 26.3 L MCHC (33.0 - 37.0 G/DL) 31.9 L RDW (11.5 - 14.5 %) 17.2 H Plt Count (130 - 400 /CUMM) 169 MPV (7.4 - 10.4 FL) 10.4 Gran % (42.2 - 75.2 %) 60.2 Lymphocytes % (20.5 - 51.1 %) 28.7 Monocytes % (1.7 - 9.3 %) 9.1 Eosinophils % (0 - 5 %) 1.1 Basophils % (0.0 - 2.0 %) 0.9 Absolute Granulocytes (1.4 - 6.5 /CUMM) 2.8 Absolute Lymphocytes (1.2 - 3.4 /CUMM) 1.3 Absolute Monocytes (0.10 - 0.60 /CUMM) 0.4 Absolute Eosinophils (0.0 - 0.7 /CUMM) 0.1 Absolute Basophils (0.0 - 0.2 /CUMM) 0 Toxicology Serum Alcohol (<10 MG/DL) < 10.0 07/17 212 Toxicology Serum Alcohol Cancelled Disposition Summary Disposition Principal Diagnosis: Cardiac arrhythmia and syncope Additional Diagnosis: hx of CABG , GERD, BPH Discharge Disposition: other general hospital Discharge Instructions General Discharge Information Code Status: Full Code Patient's Diet: NPO Patient's Activity: as tolerated Follow-Up Instructions/Appts: -you are being transferred to another facility for EP STUDY -follow up with director diabetes 7 days after discharge. -Please follow-up with your primary care provider within 7 days after discharge. -We have made changes to your home medications, please read the instructions carefully. -Please come back to the hospital if your symptoms got worse. Medications at Discharge Discharge Medications: Stop taking the following medications: Amiodarone (Cordarone) 200 MG TAB ORAL DAILY Metoprolol Succ XL (Toprol XL) 100 MG TAB.ER.24H ORAL DAILY Tamsulosin HCl (Flomax) 0.4 MG CAP.ER.24H ORAL DAILY Continue taking these medications: Aspirin (Ecotrin*) 81 MG TABLET.DR 1 Tablet ORAL DAILY Comments: Last Taken:07/13/17 Time:1000 Atorvastatin Calcium (Atorvastatin Calcium) 80 MG TABLET 1 Tablet ORAL DAILY Qty = 30 Comments: Last Taken:07/12/17 Time:5PM Omeprazole (Omeprazole) 40 MG CAPSULE.DR 1 Capsule ORAL TWICE DAILY Qty = 60 Ferrous Sulfate (Ferrous Sulfate) 325 MG (65 MG IRON) TABLET 1 Tablet ORAL DAILY Qty = 30 Start taking the following new medications: Metoprolol Succ XL (Toprol XL) 25 MG TAB 25 Milligram ORAL DAILY Qty = 30 No Refills Copies To: Issac Gupta MD; Ariana PADILLA,Jer Stanford MD Review Statement Documenting Attending: Issac Gupta MD Other Findings: stable ok to dc discussed with yesterday
--- NOTE | 2017-07-17 17:52 | Patient Discharge Instructions ---
Discharge Instructions General Discharge Information You were seen/treated for: SYNCOPE Special Instructions: -you are being transferred to another facility for EP STUDY -follow up with writing manager 7 days after discharge. -Please follow-up with your primary care provider within 7 days after discharge. -We have made changes to your home medications, please read the instructions carefully. -Please come back to the hospital if your symptoms got worse. Diet Recommended Diet: NPO Activity Full Activity/No Limits: Yes (as tolerated) Acute Coronary Syndrome Inclusion Criteria At DC or during hospital stay patient has or had the following: ACS DIAGNOSIS No Discharge Core Measures Meds if any: Prescribed or Continued at Discharge Meds if any: NOT Prescribed or Continued at Discharge Congestive Heart Failure Inclusion Criteria At DC or during hospital stay patient has or had the following: CHF DIAGNOSIS No Discharge Core Measures Meds if any: Prescribed or Continued at Discharge Meds if any: NOT Prescribed or Continued at Discharge Cerebrovascular accident Inclusion Criteria At DC or during hospital stay patient has or had the following: CVA/TIA Diagnosis No Discharge Core Measures Meds if any: Prescribed or Continued at Discharge Meds if any: NOT Prescribed or Continued at Discharge Venous thromboembolism Inclusion Criteria VTE Diagnosis No VTE Type NONE VTE Confirmed by (Test) NONE Discharge Core Measures - Per Current guidelines, there needs to be overlap - treatment for the first 5 days of Warfarin therapy. - If discharged on Warfarin prior to 5 days of - overlap therapy, the patient will need to be - assessed for post discharge needs including - *Post discharge parental anticoagulation - *Warfarin and/or parental anticoagulation education - *Follow up date to check INR post discharge At least 5 days overlap therapy as Inpatient No Meds if any: Prescribed or Continued at Discharge Note: Overlap Therapy is Warfarin and Anticoagulant Meds if any: NOT Prescribed or Continued at Discharge
[2017-07-17 18:36] VITALS: BP 126/63
--- NOTE | 2017-07-17 23:33 | ECHOCARDIOGRAM REPORT ---
SUMAYA BAÑUELOS Age: 72 : 1945 Gender: M Exam Date: 07/17/2017 16:53 Exam Location: ER Ht (in): 71 Wt (lb): 290 BSA: 2.62 BP: 130 / 64 Ordering Physician: Jovani Steve MD Referring Physician: Jer Lane M.D. Technologist: Chinyere Davenport RDCS Room Number: [id number] Indications: PRESYNCOPE/SYNCOPE Rhythm: Technical Quality: Technically difficult study FINDINGS Left Ventricle Left ventricular cavity size normal. Left ventricular wall thickness mildly increased. No obvious regional wall motion abnormalities. Normal left ventricular ejection fraction visually estimated at > 55 Right Ventricle Normal right ventricular size and function. Right Atrium Normal right atrial size. Left Atrium Normal left atrial size. Mitral Valve Structurally normal mitral valve. Hojf-im-ppqeteor mitral regurgitation. Aortic Valve No aortic stenosis. Trileaflet aortic valve. Tricuspid Valve Tricuspid valve not well visualized, grossly normal. Trace to mild tricuspid regurgitation. Unable to estimate the right ventricular systolic pressure. Pulmonic Valve Pulmonic valve not well visualized, grossly normal. Pericardium No pericardial effusion. Great Vessels Normal size aortic root. CONCLUSIONS Technically difficult study. Left ventricular cavity size normal. Left ventricular wall thickness mildly increased. No obvious regional wall motion abnormalities. Normal left ventricular ejection fraction visually estimated at > 55 %. Normal right ventricular size and function. [id number] mitral regurgitation. Unable to estimate the right ventricular systolic pressure. No pericardial effusion. Jer Lane M.D. (Electronically Signed) Final Date: 17 July 2017 23:32 MEASUREMENTS (Male / Female) Normal Values 2D ECHO LV Diastolic Diameter PLAX 4.2 cm 4.2 - 5.9 / 3.9 - 5.3 cm LV Systolic Diameter PLAX 2.3 cm 2.1 - 4.0 cm LV Fractional Shortening PLAX 45.2 % 25 - 46 % LV Ejection Fraction 2D Teich 76.9 % IVS Diastolic Thickness 1.5 cm LVPW Diastolic Thickness 1.6 cm LV Relative Wall Thickness 0.7 RV Internal Dim ED PLAX 3.4 cm 1.9 - 3.8 cm LVOT Diameter 2.1 cm Aortic Root Diameter 3.4 cm LA Systolic Diameter LX 4.4 cm 3.0 - 4.0 / 2.7 - 3.8 cm LA Volume 51.0 cm 18 - 58 / 22 - 52 cm Ascending Aorta Diameter 3.5 cm DOPPLER AV Peak Velocity 117.0 cm/s AV Peak Gradient 5.5 mmHg AV Mean Velocity 84.9 cm/s AV Mean Gradient 3.0 mmHg AV Velocity Time Integral 25.8 cm LVOT Peak Velocity 91.7 cm/s LVOT Peak Gradient 3.4 mmHg LVOT Mean Velocity 65.8 cm/s LVOT Mean Gradient 2.0 mmHg LVOT Velocity Time Integral 20.1 cm LVOT Stroke Volume 69.6 cm AV Area Cont Eq vti 2.7 cm AV Area Cont Eq pk 2.7 cm MV Peak Velocity 112.0 cm/s MV Peak Gradient 5.0 mmHg MV Mean Velocity 56.5 cm/s MV Mean Gradient 2.0 mmHg Mitral E Point Velocity 77.0 cm/s Mitral A Point Velocity 75.0 cm/s Mitral E to A Ratio 1.0 MV PHT Velocity 99.9 cm/s MV Deceleration Maverick 535.0 cm/s MV Pressure Half Time 56.0 ms MV Area PHT 3.9 cm MV Deceleration Time 256.0 ms TR Peak Velocity 292.0 cm/s TR Peak Gradient 34.1 mmHg Right Atrial Pressure 5.0 mmHg Pulmonary Artery Systolic Pressu 39.1 mmHg Right Ventricular Systolic Press 39.1 mmHg PV Peak Velocity 106.0 cm/s PV Peak Gradient 4.5 mmHg PV Mean Velocity 67.4 cm/s PV Mean Gradient 2.0 mmHg PV Velocity Time Integral 28.4 cm LV E' Lateral Velocity 7.8 cm/s Mitral E to LV E' Lateral Ratio 9.9 LV E' Septal Velocity 5.0 cm/s Mitral E to LV E' Septal Ratio 15.5
[2017-07-18 06:17] LABS: ABSOLUTE BASOPHIL COUNT 0.1 /CUMM (0.0-0.2); ABSOLUTE EOSINOPHIL COUNT 0.1 /CUMM (0.0-0.7); ABSOLUTE GRANULOCYTE CT 1.6 /CUMM (1.4-6.5); ABSOLUTE LYMPH COUNT 1.7 /CUMM (1.2-3.4); ABSOLUTE MONOCYTE COUNT 0.5 /CUMM (0.10-0.60); BASOPHIL % 1.7 % (0.0-2.0); EOSINOPHIL % 3.2 % (0-5); GRANULOCYTE % 40.3 % (42.2-75.2); HEMATOCRIT 28.7 % (42-52); MEAN CORPUSCULAR HGB CONC 31.8 G/DL (33.0-37.0); MEAN CORPUSCULAR VOLUME 81.8 FL (80.0-94.0); MEAN PLATELET VOLUME 10.1 FL (7.4-10.4); PLATELET COUNT 193 /CUMM (130-400); RBC DISTRIBUTION WIDTH 16.8 % (11.5-14.5); RED BLOOD CELL CT 3.52 /CUMM (4.70-6.10)
--- NOTE | 2017-07-18 07:40 | PN- Housestaff ---
Subjective Follow-up For: Syncope Subjective: Patient was seen and examined today. Patient states he has no complaints and is ready to be transferred. Wanted to leave earlier. No acute events overnight. Review of Systems Constitutional: Reports: no symptoms. Cardiovascular: Reports: no symptoms. Respiratory: Reports: no symptoms. Gastrointestinal: Reports: no symptoms. Musculoskeletal: Reports: no symptoms. Neurological/Psychological: Reports: no symptoms. Objective Last 24 Hrs of Vital Signs/I&O Vital Signs Date Time Temp Pulse Resp B/P B/P Pulse O2 O2 Flow FiO2 Mean Ox Delivery Rate 07/18 1046 97.4 66 18 152/72 97 Room Air 07/18 0800 97.4 72 16 148/80 97 Room Air 07/18 0549 96.1 69 18 159/73 96 Room Air 07/18 0015 97.8 61 16 102/58 97 Room Air 07/17 2054 72 19 118/52 96 Room Air Intake & Output 07/18 1600 07/18 0800 07/18 0000 Intake Total 240 Output Total 360 300 Balance -360 -60 Intake, Oral 240 Output, Urine 360 300 Physical Exam General Appearance: Alert, Oriented X3, Cooperative, No Acute Distress HEENT: Atraumatic, Mucous Membr. moist/pink Cardiovascular: Regular Rate, Normal S1, Normal S2 Lungs: Clear to Auscultation, Normal Air Movement Abdomen: Normal Bowel Sounds, Soft, No Tenderness, No Hepatospenomegaly, No Masses Extremities: No Clubbing, No Cyanosis, No Edema, Normal Pulses, No Tenderness/ Swelling Assessment/Plan Assessment: Patient is a 72 y/o male with PMH of CAD s/p CABG (05/30/17), postoperative a.fib on amiodarone, no anticoagulation due to anemia, history of htn, ischemic cardiomyopathy with LVEF of 35%, renal insufficiency, bifasicular block, prior history of syncope with admission 5 days prior to this admission for a previous episode of syncope. Patient presents this admission for episode of syncope. [facility] and cardiac etiologies of syncope. Patient upon discharge was advised to follow up with cardiology for a loop recorder and electrophysiology evaluation. Patient is observed on telemetry for the followin. Syncopal episode: due to patient's extensive cardiac history and recent workup due a syncopal episode <1 week prior to this admission, patient will require further workup. Cardiology is onboard. EKG and trops negative. Repeat ECHO shows LVEF of >55% with no wall motion abnormalities and minimal valvular disease. - Patient requires an EP study which is not available here. Patient will be transferred to [facility] today. 2. Renal Insufficiency: appears to be improving from previous admission with IV fluid hydration - trend creatinine - avoid nephrotoxic agents 3. Atrial fibrillation - Discontinued amiodarone per cardiology recommendations 4. CAD, CABG, Ischemic cardiomypothay with previous EF of 35 to 40%. - Continue aspirin and lipitory - Continue metoprolol 5. Anemia - No acute bleeding - Monitor H&H 6. GERD - Continue omeprazole CODE STATUS: Full code DVT PPx: SQ heparin Diet: heart healthy Problem List: 1. Syncope Pain Ratin Pain Location: n/a Pain Goal: Remain pain free Pain Plan: tylenol PRN Tomorrow's Labs & Rationales: none - transfer to [facility] today Discharge Plan Discharge Disposition: transfer to another hosp
[2017-07-18 08:00] VITALS: BP 148/80
--- NOTE | 2017-07-18 09:49 | PN- Cardiology ---
Subjective Subjective: Patient feels well. He denies chest pain shortness breath or dizziness. Review of Systems: Eyes no blurred or double vision Ears no deafness or ringing Nose and throat no recurrent sinusitis Lungs per history of present illness Heart per history of present illness Abdomen no nausea vomiting Musculoskeletal occasional muscle and joint pains Psych no anxiety or depression Neuro without recurrent headache or seizures Endocrine no heat or cold intolerance Objective Vital Signs and I&Os Vital Signs Date Time Temp Pulse Resp B/P B/P Pulse O2 O2 Flow FiO2 Mean Ox Delivery Rate 07/18 08 97.4 72 16 148/80 97 Room Air 07/18 0549 96.1 69 18 159/73 96 Room Air 07/18 0015 97.8 61 16 102/58 97 Room Air 07/17 2054 72 19 118/52 96 Room Air 07/17 1836 98.2 62 18 126/63 99 Room Air 07/17 1533 98.5 71 19 116/59 96 Room Air 07/17 1342 72 18 130/64 98 Room Air 07/17 1050 97.1 72 20 155/72 07/17 1050 97.1 72 20 155/72 07/17 1050 97.1 72 20 155/72 07/17 1047 97.1 72 20 155/72 97 Room Air Intake & Output 07/18 1600 07/18 0800 07/18 0000 07/17 1600 07/17 0800 07/17 0000 Intake Total 240 1000 Output Total 360 300 225 Balance -360 -60 -225 1000 Intake, IV 1000 Intake, Oral 240 Output, Urine 360 300 225 Patient 290 lb 290 lb Weight Weight Reported by Patient Measurement Method Physical Exam: Patient is a well-developed well-nourished male appearing in no acute distress HEENT is unremarkable Neck is supple there is no JVD Lungs are clear Heart regular rhythm S1 and S2 are normal no murmurs gallops or rubs Abdomen bowel sounds positive Extremities without edema Current Medications: Current Medications Sig/Melanie Start time Last Medication Dose Route Stop Time Status Admin Acetaminophen 650 MG Q6P PRN 07/17 0845 AC PO Amiodarone HCl 100 MG DAILY 07/17 1000 DC 07/17 PO 1050 Aspirin Buffered 81 MG DAILY 07/17 1000 AC 07/17 PO 1050 Atorvastatin Calcium 80 MG 1700 07/17 1700 AC 07/17 PO 1706 Ferrous Sulfate 325 MG DAILY 07/17 1000 AC 07/17 PO 1050 Heparin Sodium 0 .STK-MED ONE 07/18 0643 DC (Porcine) .ROUTE Heparin Sodium 5,000 UNIT Q8 07/17 2200 AC 07/18 (Porcine) SC 0645 Metoprolol Succinate 25 MG DAILY 07/18 1000 AC PO Metoprolol Succinate 100 MG DAILY 07/17 1000 DC 07/17 PO 1050 Omeprazole 0 .STK-MED ONE 07/18 0643 DC PO Omeprazole 40 MG DAILY AC 07/17 0846 AC 07/18 PO 0645 Sodium Chloride 500 ML BOLUS ONE 07/17 1030 CAN IV 07/17 1129 Sodium Chloride 50 ML BOLUS ONE 07/17 1015 CAN IV 07/17 1020 Tamsulosin HCl 0.4 MG DAILY 07/17 1000 DC 07/17 PO 1050 Results Last 48 Hrs of Labs/Mics: Laboratory Tests 07/18/17 0603: Anion Gap 12, Estimated GFR 54 L, BUN/Creatinine Ratio 10.8, CBC w Diff NO MAN DIFF REQ, RBC 3.52 L, MCV 81.8, MCH 26.0 L, MCHC 31.8 L, RDW 16.8 H, MPV 10.1, Gran % 40.3 L, Lymphocytes % 42.4, Monocytes % 12.4 H, Eosinophils % 3.2 , Basophils % 1.7, Absolute Granulocytes 1.6, Absolute Lymphocytes 1.7, Absolute Monocytes 0.5, Absolute Eosinophils 0.1, Absolute Basophils 0.1 07/17/17 1539: Troponin I 0.03 07/17/17 1030: Troponin I 0.03 07/17/17 0551: Lactic Acid 0.9 07/17/17 0551: Anion Gap 12, Estimated GFR 50 L, BUN/Creatinine Ratio 10.0, Glucose 97, Calcium 8.5, Total Bilirubin 0.5, Direct Bilirubin 0.2, AST 41, ALT 43, Alkaline Phosphatase 91, Troponin I 0.03, Total Protein 6.8, Albumin 3.6, Amylase 75, Lipase 100, PT 12.6 H, INR 1.20 H, APTT 32, D-Dimer High Sensitivty 533 H, Serum Alcohol < 10.0 07/17/17 0519: Lactic Acid Cancelled 07/17/17 0400: CBC w Diff NO MAN DIFF REQ, RBC 3.44 L, MCV 82.4, MCH 26.3 L, MCHC 31.9 L, RDW 17.2 H, MPV 10.4, Gran % 60.2, Lymphocytes % 28.7, Monocytes % 9.1, Eosinophils % 1.1, Basophils % 0.9, Absolute Granulocytes 2.8, Absolute Lymphocytes 1.3, Absolute Monocytes 0.4, Absolute Eosinophils 0.1, Absolute Basophils 0 07/17/17 0213: Serum Alcohol Cancelled Microbiology 07/17 511 NASOPHARYN: Influenza Virus A & B Rapid Smear - COMP Telemetry sinus rhythm Assessment/Plan Assessment/Plan 1. Coronary disease status post coronary bypass surgery 05/30/2017 with LARSEN to the LAD, saphenous vein graft to the obtuse marginal and PDA 2. Postoperative atrial fibrillation on amiodarone/Eliquis 3. Postoperative renal insufficiency now with new baseline creatinine of 1.4 4. Hypertension by history stable blood pressure. 5. Obesity 6. Recurrent syncopal episodes of uncertain etiology 7. Ischemic cardiomyopathy with ejection fraction 35-40% 8. Conduction disease by ECG with bifascicular block and first degree AV block 9. Anemia/ recent occult positive stool by guaiac; followed by GI Recommendations 1. Continue current medications 2. Patient will be transferred today to [facility] for an EP study Continue telemetry? Yes
[2017-07-18 10:46] VITALS: BP 152/72
[2017-07-18] MEDS ORDERED: TOPROL XL25 M1 PO (10:55)
== END 2017-07-18 10:47 | disposition short-term general hospital (02) ==
LOC: ERH 01:55 → ERHI 06:41 → EDBEDREQ 07:42 → ERHI 08:25
PROVIDERS: Hospitalist; Pediatrics
DX: R55 Syncope and collapse (principal); K22.4 Dyskinesia of esophagus; I25.10 Atherosclerotic heart disease of native coronary artery without angina pectoris; Z95.1 Presence of aortocoronary bypass graft; I48.91 Unspecified atrial fibrillation; D64.9 Anemia, unspecified; I25.5 Ischemic cardiomyopathy; N28.9 Disorder of kidney and ureter, unspecified; I44.0 Atrioventricular block, first degree; I45.10 Unspecified right bundle-branch block; I44.4 Left anterior fascicular block; N40.0 Benign prostatic hyperplasia without lower urinary tract symptoms; I10 Essential (primary) hypertension; K21.9 Gastro-esophageal reflux disease without esophagitis; E66.9 Obesity, unspecified; Z79.01 Long term (current) use of anticoagulants; Z79.82 Long term (current) use of aspirin
CPT/HCPCS: 71045; 82436; 87804; 87804-59; 93005; 93010; 93306; 96372; G0378; G0480; J1644; J7040; J7508

== ENCOUNTER 2017-11-08 19:33 | Observation (INO) | payer OTHER ==
[~2017-11-08 19:33] MED LIST changes: +ESOMEPRAZOLE MA20 M1 PO; +TOPROL XL25 M1 PO; +TOPROL XL50 M1 PO
--- NOTE | 2017-11-08 19:53 | ED GENERAL ADULT ---
History of Present Illness General Chief Complaint: General Adult Stated Complaint: UNRESPONSIVE IN CAR Source: family, old records Exam Limitations: clinical condition Allergies Coded Allergies: NO KNOWN ALLERGIES (01/20/12) Per STS nurse Lety. Dominic Perry 01/20/12 Triage Nurses Notes Reviewed? yes HPI: Per the patient has not had much of an appetite over the past few days. He has not really been eating or drinking anything. He has not taking his medications which include atorvastatin, aspirin and Nexium. This evening they were getting dessert when the patient began to complain that the bumps in the car hurt. is unsure where the arms were hurting. Patient then went unresponsive. His states that this is happened in the past when he has become dehydrated. She drove straight to the emergency department. (Jd PADILLA,Saúl Moses) Vital Signs & Intake/Output Vital Signs & Intake/Output Vital Signs Date Time Temp Pulse Resp B/P B/P Pulse O2 O2 Flow FiO2 Mean Ox Delivery Rate 11/09 1015 98.6 67 18 128/66 100 Room Air 11/09 0807 97.6 71 18 105/64 100 Room Air 11/09 0610 97.0 64 18 139/70 97 Room Air 11/09 0136 96.4 72 18 113/66 98 Room Air 11/08 2336 96.8 78 18 137/75 98 Room Air 11/09 2011 82 18 111/55 99 Room Air 11/08 1958 80/48 11/09 1955 96.7 88 16 62/46 99 ED Intake and Output 11/09 0000 11/08 1200 Intake Total 0 Output Total Balance 0 Intake, Oral 0 Reconcile Medications Aspirin (Ecotrin*) 81 MG TABLET.DR 1 TAB PO DAILY CARDIAC (Reported) Atorvastatin Calcium 20 MG TABLET 1 TAB PO DAILY CHOLESTEROL (Reported) Escitalopram Oxalate 10 MG TABLET 1 TAB PO DAILY UNKNOWN (Reported) Esomeprazole Magnesium 20 MG CAPSULE.DR 1 TAB PO DAILY GI (Reported) Metoprolol Succ XL (Toprol Xl) 50 MG TAB 1 TAB PO DAILY HEART (Reported) (Nichole PADILLA,Albert) Past History Travel History Traveled to [place] past 21 day No Medical History Any Pertinent Medical History? 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 No (Jd PADILLA,Saúl Moses) Review of Systems Review of Systems Constitutional: Reports: see HPI. (Jd PADILLA,Saúl Moses) Physical Exam Physical Exam General Appearance: lethargic, severe distress Head: atraumatic Eyes: Bilateral: PERRL. Ears, Nose, Throat: normal pharynx, normal ENT inspection, hearing grossly normal Neck: normal inspection, supple, full range of motion Respiratory: normal breath sounds, chest non-tender, no respiratory distress, lungs clear Cardiovascular: regular rate/rhythm, normal peripheral pulses Gastrointestinal: normal bowel sounds, soft, non-tender, no organomegaly Back: normal inspection, normal range of motion Extremities: normal inspection, normal capillary refill, normal range of motion Neurologic/Psych: WITHDRAWS FROM PAINFUL STIMULAE, NORMAL GAG REFLEX Skin: intact, normal color, warm/dry Core Measures ACS in differential dx? Yes CVA/TIA Diagnosis: No Sepsis Present: No Sepsis Focused Exam Completed? No (Jd PADILLA,Saúl Moses) Progress Differential Diagnoses I considered the following diagnoses in my evaluation of the patient: [AMI, CVA, TRAUMA, AAA, THORACIC DISSECTION, UTI, ELECTROLYTE ABNORMALITY, SEPSIS] Diagnostic Imaging: Viewed by Me: CT Scan. Discussed w/RAD: CT Scan. Radiology Impression: PATIENT: SUMAYA BAÑUELOS PRESENT AGE: 72 PATIENT ACCOUNT NO: [id number] : 43 LOCATION: [facility] ORDERING PHYSICIAN: Saúl Miles MD SERVICE DATE: 11/08/17 EXAM TYPE: CAT - CT CERV SPINE WO IV CONTRAST; CT HEAD WO IV CONTRAST EXAMINATIONS: CT HEAD WITHOUT CONTRAST AND CT CERVICAL SPINE WITHOUT CONTRAST CLINICAL INFORMATION: Unresponsive. COMPARISON: July 17, 2017. TECHNIQUE: Contiguous helical images of the brain were obtained without IV contrast. Contiguous helical images of the cervical spine were obtained without IV contrast. Multiplanar reconstructions were performed. DLP: 996 mGy-cm. FINDINGS: There are no pathologic extra-axial fluid collections. The lateral, third, fourth ventricles are nondilated and concordant with the appearance of the sulci. There is no evidence for acute intraparenchymal hemorrhage or infarct. There is neither mass nor mass effect. There is no shift of midline structures. The paranasal sinuses and mastoid air cells are clear. There are no osseous lesions. The cervical vertebra are in normal alignment. There is multilevel disc height loss with anterior osteophyte formation. Disc heights and vertebral heights are otherwise well-preserved. There are no fractures. There is no prevertebral soft tissue swelling. There is no cervical lymphadenopathy. The visualized lung apices are clear. IMPRESSION: No evidence for acute intracranial injury. No evidence for acute injury to the cervical spine. DICTATED BY: Lorenzo Wolfe MD DATE/TIME DICTATED:11/08/172011 RESIDENTIAL MANAGER:SKYLER DATE/TIME TRANSCRIBED:11/08/172011 CONFIDENTIAL, DO NOT COPY WITHOUT APPROPRIATE AUTHORIZATION. <Electronically signed in Other Vendor System> SIGNED BY: Lorenzo Wolfe MD 11/08/172019, PATIENT: SUMAYA BAÑUELOS PRESENT AGE: 72 PATIENT ACCOUNT NO: [id number] : 43 LOCATION: [facility] ORDERING PHYSICIAN: Saúl Miles MD SERVICE DATE: 11/08/17 EXAM TYPE: CAT - CT ABD & PELVIS W/O IV CONTRAS; CT CHEST WO IV CONTRAST EXAMINATION: CT CHEST, ABDOMEN AND PELVIS WITHOUT CONTRAST CLINICAL INFORMATION: Unresponsive. COMPARISON: 09/21/2017. TECHNIQUE: Contiguous axial thin section helical images of the chest, abdomen and pelvis were performed without the administration of oral or IV contrast. The data set was reformatted in the coronal and sagittal planes and reviewed on an independent workstation. DLP: 1377 mGy-cm. FINDINGS: The heart is of normal size. There is no pericardial effusion. There is neither mediastinal, hilar nor axillary lymphadenopathy. There are no chest wall masses. Review of lung windows demonstrates that there are neither pleural effusions nor pneumothoraces. There are no consolidations. There are no pulmonary parenchymal nodules. The liver is of normal size and attenuation without focal lesions nor intrahepatic biliary ductal dilation. A normal gallbladder is identified. There is no wall thickening or discernible pericholecystic fluid. The spleen, pancreas, adrenal glands are unremarkable. Both kidneys are of normal size and attenuation without hydronephrosis or nephrolithiasis. There is no abdominal free fluid. There is neither mesenteric nor retroperitoneal lymphadenopathy. Normal unopacified loops of small and large bowel are identified. A normal appendix is identified. There is no pelvic free fluid. The urinary bladder is unremarkable. There is neither pelvic nor inguinal lymphadenopathy. There are bilateral fat-containing hernias. Bone windows: Neither sclerotic nor lytic bone lesions are identified. There is moderate degenerative change present throughout the thoracic and lumbar spine. IMPRESSION : No evidence for acute traumatic injury to the thorax, abdomen nor pelvis. DICTATED BY: Lorenzo Wolfe MD DATE/TIME DICTATED:11/08/172016 RESIDENTIAL MANAGER:SKYLER DATE/TIME TRANSCRIBED:11/08/172016 CONFIDENTIAL, DO NOT COPY WITHOUT APPROPRIATE AUTHORIZATION. <Electronically signed in Other Vendor System> SIGNED BY: Lorenzo Wolfe MD 11/08/172024 Initial ED EKG: LBBB, nonspecific ST T wave chg Prior EKG: unchanged Rhythm Strip: normal sinus rhythm Hand-Off Endorsed To: Albert Varela MD Endorsed Time: 2056 Pending: labs Comments: Patient needed to be pulled from the car as he was unresponsive. He is put on an ER stretcher and taken immediately to CAT scan. Patient found to be hypotensive. Patient fingerstick was 117. Patient had holt scan. EKG shows left bundle branch block. 2 IVs inserted and aggressive hydration. Patient is awake alert and oriented 3. Patient states that he was in the car when suddenly he began to feel nauseous and and dry heaved. Patient states that then he just felt very lightheaded. Patient remembers arriving to the ER and remembers that he needed to be lifted out of the car. Patient denies any chest pain. The nausea is resolved. Patient currently feels fine. (Jd PADILLA,Saúl Moses) Plan of Care: Orders Procedure Date/time Status Heart Healthy Diet 11/09 B Active Discharge Patient 11/09 1213 Active TROPONIN LEVEL 11/09 0600 Complete LACTIC ACID 11/09 0600 Complete BASIC METABOLIC PANEL 11/09 0600 Complete EKG 11/09 0600 Active TROPONIN LEVEL 11/08 2300 Complete EKG 11/08 2300 Active Intake & Output 11/08 2138 Active Medtronic Device Interrogation 11/[address] in observation 11/08 2056 Active ED Holding Orders 11/08 2056 Active Patient Data 11/08 2056 Active Vital Signs 11/08 2056 Active Code Status 11/08 2056 Active Hill, Insertion/Removal/Asses 11/09 2011 Active CULTURE,URINE 11/09 2011 Active Add-on Test (ER Only) 11/09 2007 Active Straight Cath 11/09 2007 Active FingerStick- Glucose 11/09 1951 Active LACTIC ACID 11/08 1949 Complete URINE DRUGS OF ABUSE 11/08 1936 Complete URINALYSIS 11/08 1936 Complete TROPONIN LEVEL 11/08 1936 Complete ETHANOL 11/08 1936 Complete COMPREHENSIVE METABOLIC PANEL 11/08 1936 Complete CBC WITHOUT DIFFERENTIAL 11/08 1936 Complete EKG 11/08 1936 Active Laboratory Tests 11/09/17 0625: Anion Gap 12, Estimated GFR > 60, BUN/Creatinine Ratio 13.6, Glucose 90, Lactic Acid 1.0, Calcium 8.0 L, Troponin I 0.06 11/08/177: Troponin I 0.05 11/08/170: Urine Opiates Screen < 100, Methadone Screen 41, Barbiturate Screen < 60, Ur Phencyclidine Scrn < 6.00, Amphetamines Screen < 100, U Benzodiazepines Scrn < 85, Urine Cocaine Screen < 50, Urine Cannabis Screen < 5.00, Urinalysis LIGHT H , Urine Color YEL, Urine Clarity CLEAR, Urine pH 7.0, Ur Specific [place] 1.010, Urine Protein TRACE H, Urine Ketones TRACE H, Urine Nitrite NEG, Urine Bilirubin NEG, Urine Urobilinogen 0.2, Ur Leukocyte Esterase SMALL H, Ur Microscopic SEDIMENT EXAMINED, Urine WBC 1-3 H, Ur Epithelial Cells RARE, Urine Bacteria FEW H, Hyaline Casts 3-5 H, Urine Mucus FEW, Urine Hemoglobin NEG, Urine Glucose NEG 11/08/171949: pH 7.54 H, pCO2 17 L, pO2 120 H, HCO3 14 L, ABG O2 Sat (Measured) 98.0, P-50 (Temp Corrected) N, Carboxyhemoglobin 0.1 L, O2 Concentration % RA, Temperature 97.0, Anion Gap 25 H, Estimated GFR 50 L, BUN/Creatinine Ratio 11.4, Glucose 107 H, Lactic Acid 4.4 H, Calcium 9.3, Total Bilirubin 2.3 H, AST 44, ALT 28, Alkaline Phosphatase 81, Troponin I 0.05, Total Protein 7.8, Albumin 4.1, Globulin 3.7, Albumin/Globulin Ratio 1.1, CBC w Diff NO MAN DIFF REQ, RBC 3.98 L, MCV 86.5, MCH 28.9, MCHC 33.4, RDW 18.4 H, MPV 10.1, Gran % 61.9, Lymphocytes % 26.4, Monocytes % 10.8 H, Eosinophils % 0.2, Basophils % 0.7, Absolute Granulocytes 4.3, Absolute Lymphocytes 1.8, Absolute Monocytes 0.7 H, Absolute Eosinophils 0, Absolute Basophils 0, Phlebotomy Draw Site RIGHT BRACHIAL, Serum Alcohol < 10.0 Microbiology 11/08 2109 URINE ROUT: Urine Culture - RES Hand-Off Endorsed To: Saúl Miles MD Endorsed Time: 0700 Pending: consult (cardiology,pacer interrogation) (Nichole PADILLA,Albert) Departure Departure Disposition: HOME OR SELF CARE Condition: Fair Clinical Impression Primary Impression: Syncope Secondary Impressions: Hypotension Referrals: Simona PADILLA,Abdoulaye Gupta MD,Issac Garcia (PCP/Family) Additional Instructions: FOLLOW UP WITH DR. TEJADA WEAR COMPRESSION STOCKINGS RETURNFOR ANY CONCERNS Departure Forms: Customer Survey General Discharge Information (Saúl Miles MD) Critical Care Note Critical Care Note Critical Care Time: mins: (120 MIN) (Saúl Miles MD) ED Attending Observation Initial Observation Note: I have seen and personally examined SUMAYA BAÑUELOS on 11/08/17 at 2057. I agree with the current emergency department documentation. The disposition (admission or discharge) is uncertain at this time, he needs a period of observation for the following reason(s): [Patient to be placed in ED observation for continued monitoring and serial enzymes. He will need his pacemaker interrogated. He will require cardiology consultation in the morning. Patient is awake alert and oriented. Patient and his agree with this plan.] The ED Nurse caring for this patient has been personally informed as to what the patient is being observed for. Observation Re-Evaluation: I have reevaluated SUMAYA BAÑUELOS on 11/09/17 at 0700. The physical findings that support the continued need to observe this patient include [PTIS FEELING MUCH BETTER. HE CONTINUES TO REST COMFORTABLY]. Observation Discharge: I have reevaluated SUMAYA BAÑUELOS on 11/09/17 at 1208. The patient is: ([X]): Stable for discharge (): To be admitted to Nursing Floor (): To be placed in Observation on Nursing Floor (): For transfer to other facility The patient was being observed for [SYNCOPE] As a result of that observation, I have determined [STABLE FOR DISCHARGE]. (Jd PADILLA,Saúl Moses)
[2017-11-08 20:09] LABS: ABSOLUTE BASOPHIL COUNT 0 /CUMM (0.0-0.2); ABSOLUTE EOSINOPHIL COUNT 0 /CUMM (0.0-0.7); ABSOLUTE GRANULOCYTE CT 4.3 /CUMM (1.4-6.5); ABSOLUTE LYMPH COUNT 1.8 /CUMM (1.2-3.4); ABSOLUTE MONOCYTE COUNT 0.7 /CUMM (0.10-0.60); BASOPHIL % 0.7 % (0.0-2.0); EOSINOPHIL % 0.2 % (0-5); GRANULOCYTE % 61.9 % (42.2-75.2); HEMATOCRIT 34.4 % (42-52); MEAN CORPUSCULAR HGB 28.9 PG (27.0-31.0); MEAN CORPUSCULAR HGB CONC 33.4 G/DL (33.0-37.0); MEAN CORPUSCULAR VOLUME 86.5 FL (80.0-94.0); MEAN PLATELET VOLUME 10.1 FL (7.4-10.4); PLATELET COUNT 306 /CUMM (130-400); RBC DISTRIBUTION WIDTH 18.4 % (11.5-14.5); RED BLOOD CELL CT 3.98 /CUMM (4.70-6.10); WHITE BLOOD CELL COUNT 6.9 /CUMM (4.8-10.8)
--- NOTE | 2017-11-08 20:20 | CT SCAN REPORT ---
EXAMINATIONS: CT HEAD WITHOUT CONTRAST AND CT CERVICAL SPINE WITHOUT CONTRAST CLINICAL INFORMATION: Unresponsive. COMPARISON: July 17, 2017. TECHNIQUE: Contiguous helical images of the brain were obtained without IV contrast. Contiguous helical images of the cervical spine were obtained without IV contrast. Multiplanar reconstructions were performed. DLP: 996 mGy-cm. FINDINGS: There are no pathologic extra-axial fluid collections. The lateral, third, fourth ventricles are nondilated and concordant with the appearance of the sulci. There is no evidence for acute intraparenchymal hemorrhage or infarct. There is neither mass nor mass effect. There is no shift of midline structures. The paranasal sinuses and mastoid air cells are clear. There are no osseous lesions. The cervical vertebra are in normal alignment. There is multilevel disc height loss with anterior osteophyte formation. Disc heights and vertebral heights are otherwise well-preserved. There are no fractures. There is no prevertebral soft tissue swelling. There is no cervical lymphadenopathy. The visualized lung apices are clear. IMPRESSION: No evidence for acute intracranial injury. No evidence for acute injury to the cervical spine.
--- NOTE | 2017-11-08 20:25 | CT SCAN REPORT ---
EXAMINATION: CT CHEST, ABDOMEN AND PELVIS WITHOUT CONTRAST CLINICAL INFORMATION: Unresponsive. COMPARISON: 09/21/2017. TECHNIQUE: Contiguous axial thin section helical images of the chest, abdomen and pelvis were performed without the administration of oral or IV contrast. The data set was reformatted in the coronal and sagittal planes and reviewed on an independent workstation. DLP: 1377 mGy-cm. FINDINGS: The heart is of normal size. There is no pericardial effusion. There is neither mediastinal, hilar nor axillary lymphadenopathy. There are no chest wall masses. Review of lung windows demonstrates that there are neither pleural effusions nor pneumothoraces. There are no consolidations. There are no pulmonary parenchymal nodules. The liver is of normal size and attenuation without focal lesions nor intrahepatic biliary ductal dilation. A normal gallbladder is identified. There is no wall thickening or discernible pericholecystic fluid. The spleen, pancreas, adrenal glands are unremarkable. Both kidneys are of normal size and attenuation without hydronephrosis or nephrolithiasis. There is no abdominal free fluid. There is neither mesenteric nor retroperitoneal lymphadenopathy. Normal unopacified loops of small and large bowel are identified. A normal appendix is identified. There is no pelvic free fluid. The urinary bladder is unremarkable. There is neither pelvic nor inguinal lymphadenopathy. There are bilateral fat-containing hernias. Bone windows: Neither sclerotic nor lytic bone lesions are identified. There is moderate degenerative change present throughout the thoracic and lumbar spine. IMPRESSION: No evidence for acute traumatic injury to the thorax, abdomen nor pelvis.
[2017-11-08] MEDS ORDERED: ATORVASTATIN CA20 M1 PO (21:25)
[2017-11-08] MEDS ORDERED: ESCITALOPRAM OX10 MG PO (21:26)
[2017-11-09 10:15] VITALS: BP 128/66
--- NOTE | 2017-11-09 11:53 | Cons- Cardiology ---
General Information and HPI Consulting Request Date of Consult: 11/09/17 Requested By: Jd PADILLA,Saúl Moses Reason for Consult: Presyncope Source of Information: patient, old records Exam Limitations: patient's age, poor historian History of Present Illness: This is a 72-year-old male with a past medical history of coronary artery disease status post bypass surgery on 05/30/2017, postoperative atrial fibrillation without recurrence (Eliquis stopped); postoperative renal insufficiency with new baseline creatinine of 1.4, ischemic cardiomyopathy with ejection fraction 35-40%, conduction disease by ECG, syncope, anemia with guiac + stools, and history of hypertension who presents to [facility] ER with a presyncopal episode. He has had 2-3 similar episodes. He has a permanent pacemaker. Evaluation of pacemaker revealed no episodes of tachycardia of bradycardia. He was given intravenous volume by the ER staff and improved significantly. This episode occurred preceded by an episode of nausea. As mentioned he has had 2-3 episodes in the past that have recovered fairly soon. He neglects to wear compression stockings. Allergies/Medications Allergies: Coded Allergies: NO KNOWN ALLERGIES (01/20/12) Per [facility] nurse Lety. -- Vicky 01/20/12 Home Med List: Aspirin (Ecotrin*) 81 MG TABLET.DR 1 TAB PO DAILY CARDIAC (Reported) Atorvastatin Calcium 20 MG TABLET 1 TAB PO DAILY CHOLESTEROL (Reported) Escitalopram Oxalate 10 MG TABLET 1 TAB PO DAILY UNKNOWN (Reported) Esomeprazole Magnesium 20 MG CAPSULE.DR 1 TAB PO DAILY GI (Reported) Metoprolol Succ XL (Toprol Xl) 50 MG TAB 1 TAB PO DAILY HEART (Reported) Current Medications: Current Medications Sig/Melanie Start time Last Medication Dose Route Stop Time Status Admin Sodium Chloride 1,000 ML ONCE ONE 11/08 2099 DC 11/08 IV 11/09 Sodium Chloride 1,000 ML BOLUS ONE 11/09 1999 DC 11/08 IV 11/08 Sodium Chloride 1,000 ML BOLUS ONE 11/09 1999 DC / IV 11/08 Sodium Chloride 1,000 ML BOLUS ONE 11/09 1999 DC 11/08 IV 11/08 Review of Systems Review of Systems: Except for presyncope review of systems was essentially unremarked Past History Travel History Traveled to [place] past 21 day No Medical History Neurological: NONE EENT: NONE Cardiovascular: CAD, hypertension, A-FIB Respiratory: NONE Gastrointestinal: GERD Hepatic: NONE Renal: NONE Musculoskeletal: NONE Psychiatric: NONE Endocrine: NONE Blood Disorders: NONE Cancer(s): 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 Surgical History Surgical History: CABG Family History Relations & Conditions If Any: Relation not specified for: *No pertinent family history Psychosocial History 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 Smoking Status: Unknown If Ever Smoked ECHO Results (as available) Report: (Ejection fraction 35-40% Exam & Diagnostic Data Vital Signs and I&O Vital Signs Date Time Temp Pulse Resp B/P B/P Pulse O2 O2 Flow FiO2 Mean Ox Delivery Rate 11/09 1015 98.6 67 18 128/66 100 Room Air 11/09 0807 97.6 71 18 105/64 100 Room Air 11/09 0610 97.0 64 18 139/70 97 Room Air 11/09 0136 96.4 72 18 113/66 98 Room Air 11/08 2336 96.8 78 18 137/75 98 Room Air 11/09 2011 82 18 111/55 99 Room Air 11/088 80/48 11/09 1955 96.7 88 16 62/46 99 Intake & Output 11/09 1600 11/09 0800 11/09 0000 11/08 1600 11/08 0800 11/08 0000 Intake Total 4000 0 Output Total 650 Balance 3350 0 Intake, IV 4000 Intake, Oral 0 Output, Urine 650 Labs/Brett Results: Laboratory Tests 11/09 11/08 11/08 0625 2257 2110 Chemistry Sodium (137 - 145 mmol/L) 139 Potassium (3.5 - 5.1 mmol/L) 3.5 Chloride (98 - 107 mmol/L) 102 Carbon Dioxide (22 - 30 mmol/L) 25 Anion Gap (5 - 16) 12 BUN (9 - 20 mg/dL) 15 Creatinine (0.7 - 1.2 mg/dL) 1.1 Estimated GFR (>60 ml/min) > 60 BUN/Creatinine Ratio (7 - 25 %) 13.6 Glucose (65 - 99 mg/dL) 90 Lactic Acid (0.7 - 2.1 mmol/L) 1.0 Calcium (8.4 - 10.2 mg/dL) 8.0 L Troponin I (<0.11 ng/ml) 0.06 0.05 Toxicology Urine Opiates Screen (>2000 NG/ML) < 100 Methadone Screen (>300 NG/ML) 41 Barbiturate Screen (>200 NG/ML) < 60 Ur Phencyclidine Scrn (>25 NG/ML) < 6.00 Amphetamines Screen (>1000 NG/ML) < 100 U Benzodiazepines Scrn (>200 NG/ML) < 85 Urine Cocaine Screen (>300 NG/ML) < 50 Urine Cannabis Screen (>50 NG/ML) < 5.00 Urines Urinalysis LIGHT H Urine Color (YEL,AMB,STR) YEL Urine Clarity (CLEAR) CLEAR Urine pH (5.0 - 8.0) 7.0 Ur Specific [place] (1.001 - 1.035) 1.010 Urine Protein (NEG,<30 MG/DL) TRACE H Urine Ketones (NEG) TRACE H Urine Nitrite (NEG) NEG Urine Bilirubin (NEG) NEG Urine Urobilinogen (0.1 - 1.0 EU/dl) 0.2 Ur Leukocyte Esterase (NEG) SMALL H Ur Microscopic SEDIMENT EXAMINED Urine WBC (0 - 2 /HPF) 1-3 H Ur Epithelial Cells (NONE,FEW) RARE Urine Bacteria (NEG/NONE) FEW H Hyaline Casts (0/LPF) 3-5 H Urine Mucus (FEW,NONE) FEW Urine Hemoglobin (NEG) NEG Urine Glucose (N MG/DL) NEG 11/08 1950 Blood Gas pH (7.35 - 7.45 PH) 7.54 H pCO2 (35 - 45 TORR) 17 L pO2 (80 - 100 TORR) 120 H HCO3 (21 - 28 MEQ/L) 14 L ABG O2 Sat (Measured) (>96.0 %) 98.0 P-50 (Temp Corrected) N Carboxyhemoglobin (1.5 - 5.0 %) 0.1 L O2 Concentration % RA Temperature (97.0 - 100.0 FARH) 97.0 Chemistry Sodium (137 - 145 mmol/L) 138 Potassium (3.5 - 5.1 mmol/L) 4.2 Chloride (98 - 107 mmol/L) 97 L Carbon Dioxide (22 - 30 mmol/L) 17 L Anion Gap (5 - 16) 25 H BUN (9 - 20 mg/dL) 16 Creatinine (0.7 - 1.2 mg/dL) 1.4 H Estimated GFR (>60 ml/min) 50 L BUN/Creatinine Ratio (7 - 25 %) 11.4 Glucose (65 - 99 mg/dL) 107 H Lactic Acid (0.7 - 2.1 mmol/L) 4.4 H Calcium (8.4 - 10.2 mg/dL) 9.3 Total Bilirubin (0.2 - 1.3 mg/dL) 2.3 H AST (17 - 59 U/L) 44 ALT (21 - 72 U/L) 28 Alkaline Phosphatase (< 127 U/L) 81 Troponin I (<0.11 ng/ml) 0.05 Total Protein (6.3 - 8.2 g/dL) 7.8 Albumin (3.5 - 5.0 g/dL) 4.1 Globulin (1.9 - 4.2 gm/dL) 3.7 Albumin/Globulin Ratio (1.1 - 2.2 %) 1.1 Hematology CBC w Diff NO MAN DIFF REQ WBC (4.8 - 10.8 /CUMM) 6.9 RBC (4.70 - 6.10 /CUMM) 3.98 L Hgb (14.0 - 18.0 G/DL) 11.5 L Hct (42 - 52 %) 34.4 L MCV (80.0 - 94.0 FL) 86.5 MCH (27.0 - 31.0 PG) 28.9 MCHC (33.0 - 37.0 G/DL) 33.4 RDW (11.5 - 14.5 %) 18.4 H Plt Count (130 - 400 /CUMM) 306 MPV (7.4 - 10.4 FL) 10.1 Gran % (42.2 - 75.2 %) 61.9 Lymphocytes % (20.5 - 51.1 %) 26.4 Monocytes % (1.7 - 9.3 %) 10.8 H Eosinophils % (0 - 5 %) 0.2 Basophils % (0.0 - 2.0 %) 0.7 Absolute Granulocytes (1.4 - 6.5 /CUMM) 4.3 Absolute Lymphocytes (1.2 - 3.4 /CUMM) 1.8 Absolute Monocytes (0.10 - 0.60 /CUMM) 0.7 H Absolute Eosinophils (0.0 - 0.7 /CUMM) 0 Absolute Basophils (0.0 - 0.2 /CUMM) 0 Miscellaneous Phlebotomy Draw Site RIGHT BRACHIAL Toxicology Serum Alcohol (<10 MG/DL) < 10.0 Diagnostic Data EKG Results AV dual paced rhythm Other Results CT scan abdomenNo evidence for acute traumatic injury to the thorax, abdomen nor pelvis. Assessment/Plan Assessment/Plan In summary this 72-year-old gentleman has had 2-3 previous episodes of presyncope and syncope. He was admitted with a similar episode which I think is more vasovagal. He is neglected to wear his compression stockings. His symptoms resolved on hydration. He is feeling comfortable and anxious to go home. Pacemaker interrogation revealed no malfunction. I think it is reasonable to discharge this patient from the ER after he is ambulated. He was instructed to wear compression stockings at it as before. Consult Acknowledgment - Thank you for your consult request.
--- NOTE | 2017-11-09 13:10 | PN- Att Addend ---
Attending Addendum Attending Brief Note This a gentleman with coronary artery disease with recent CABG, postop A. fib converted to sinus rhythm not on anticoagulation, chronic kidney disease, severe cardiomyopathy in the past now with improved ejection fraction, recurrent syncopal episode due to hypotension, pacemaker using the past, multiple admission to the hospital with similar episodes came in with syncope again. Previous pacemaker evaluation did not show any significant worsening. Patient unfortunately continues to have lack of appetite and has mild depression and has been having occasional dysphagia. He has been extensively worked up for this in pending GI evaluation as an outpatient for his dysphagia. Patient has had previous history of EGD and has had previous barium swallow. He has had an esophageal manometry at [facility] and in 2016 he had had normal EGD per GI with symptoms suggestive of pseudo-achalasia. He also has had a sleep study in the recent past with very severe sleep apnea but was intolerant to CPAP and he has decided not to use CPAP as he has lost weight in the recent past. llergies/Medications Allergies: Coded Allergies: NO KNOWN ALLERGIES (01/20/12) Per [facility] nurse Lety. -Sarina Perry 01/20/12 Home Med List: Aspirin (Ecotrin*) 81 MG TABLET.DR 1 TAB PO DAILY CARDIAC (Reported) Atorvastatin Calcium 20 MG TABLET 1 TAB PO DAILY CHOLESTEROL (Reported) Escitalopram Oxalate 10 MG TABLET 1 TAB PO DAILY UNKNOWN (Reported) Esomeprazole Magnesium 20 MG CAPSULE.DR 1 TAB PO DAILY GI (Reported) Metoprolol Succ XL (Toprol Xl) 50 MG TAB 1 TAB PO DAILY HEART (Reported) Current Medications: Current Medications Sig/Melanie Start time Last Medication Dose Route Stop Time Status Admin Sodium Chloride 1,000 ML ONCE ONE 11/08 2099 DC 11/08 IV 11/09 Sodium Chloride 1,000 ML BOLUS ONE 11/09 1999 DC 11/08 IV 11/08 Sodium Chloride 1,000 ML BOLUS ONE 11/09 1999 DC 11/08 IV 11/08 Sodium Chloride 1,000 ML BOLUS ONE 11/09 1999 DC 11/08 IV 11/08 Review of Systems Review of Systems: Except for presyncope review of systems was essentially unremarked Past History Travel History Traveled to [place] past 21 day No Medical History Neurological: NONE EENT: NONE Cardiovascular: CAD, hypertension, A-FIB Respiratory: NONE Gastrointestinal: GERD Hepatic: NONE Renal: NONE Musculoskeletal: NONE Psychiatric: NONE Endocrine: NONE Blood Disorders: NONE Cancer(s): 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 Surgical History Surgical History: CABG Family History Relations & Conditions If Any: Relation not specified for: *No pertinent family history Psychosocial History 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 Smoking Status: Unknown If Ever Smoked ECHO Results (as available) Report: (Ejection fraction 35-40% Exam & Diagnostic Data Vital Signs and I&O Vital Signs Date Time Temp Pulse Resp B/P B/P Pulse O2 O2 Flow FiO2 Mean Ox Delivery Rate 11/09 1015 98.6 67 18 128/66 100 Room Air 11/09 0807 97.6 71 18 105/64 100 Room Air 11/09 0610 97.0 64 18 139/70 97 Room Air 11/09 0136 96.4 72 18 113/66 98 Room Air 11/08 2336 96.8 78 18 137/75 98 Room Air 11/09 2011 82 18 111/55 99 Room Air 11/088 80/48 11/09 1955 96.7 88 16 62/46 99 Intake & Output 11/09 1600 11/09 0800 11/09 0000 11/08 1600 11/09 0700 11/08 0000 Intake Total 4000 0 Output Total 650 Balance 3350 0 Intake, IV 4000 Intake, Oral 0 Output, Urine 650 Labs/Brett Results: Laboratory Tests 11/09 11/08 11/08 0625 2257 2110 Chemistry Sodium (137 - 145 mmol/L) 139 Potassium (3.5 - 5.1 mmol/L) 3.5 Chloride (98 - 107 mmol/L) 102 Carbon Dioxide (22 - 30 mmol/L) 25 Anion Gap (5 - 16) 12 BUN (9 - 20 mg/dL) 15 Creatinine (0.7 - 1.2 mg/dL) 1.1 Estimated GFR (>60 ml/min) > 60 BUN/Creatinine Ratio (7 - 25 %) 13.6 Glucose (65 - 99 mg/dL) 90 Lactic Acid (0.7 - 2.1 mmol/L) 1.0 Calcium (8.4 - 10.2 mg/dL) 8.0 L Troponin I (<0.11 ng/ml) 0.06 0.05 Toxicology Urine Opiates Screen (>2000 NG/ML) < 100 Methadone Screen (>300 NG/ML) 41 Barbiturate Screen (>200 NG/ML) < 60 Ur Phencyclidine Scrn (>25 NG/ML) < 6.00 Amphetamines Screen (>1000 NG/ML) < 100 U Benzodiazepines Scrn (>200 NG/ML) < 85 Urine Cocaine Screen (>300 NG/ML) < 50 Urine Cannabis Screen (>50 NG/ML) < 5.00 Urines Urinalysis LIGHT H Urine Color (YEL,AMB,STR) YEL Urine Clarity (CLEAR) CLEAR Urine pH (5.0 - 8.0) 7.0 Ur Specific [place] (1.001 - 1.035) 1.010 Urine Protein (NEG,<30 MG/DL) TRACE H Urine Ketones (NEG) TRACE H Urine Nitrite (NEG) NEG Urine Bilirubin (NEG) NEG Urine Urobilinogen (0.1 - 1.0 EU/dl) 0.2 Ur Leukocyte Esterase (NEG) SMALL H Ur Microscopic SEDIMENT EXAMINED Urine WBC (0 - 2 /HPF) 1-3 H Ur Epithelial Cells (NONE,FEW) RARE Urine Bacteria (NEG/NONE) FEW H Hyaline Casts (0/LPF) 3-5 H Urine Mucus (FEW,NONE) FEW Urine Hemoglobin (NEG) NEG Urine Glucose (N MG/DL) NEG 11/08 1950 Blood Gas pH (7.35 - 7.45 PH) 7.54 H pCO2 (35 - 45 TORR) 17 L pO2 (80 - 100 TORR) 120 H HCO3 (21 - 28 MEQ/L) 14 L ABG O2 Sat (Measured) (>96.0 %) 98.0 P-50 (Temp Corrected) N Carboxyhemoglobin (1.5 - 5.0 %) 0.1 L O2 Concentration % RA Temperature (97.0 - 100.0 FARH) 97.0 Chemistry Sodium (137 - 145 mmol/L) 138 Potassium (3.5 - 5.1 mmol/L) 4.2 Chloride (98 - 107 mmol/L) 97 L Carbon Dioxide (22 - 30 mmol/L) 17 L Anion Gap (5 - 16) 25 H BUN (9 - 20 mg/dL) 16 Creatinine (0.7 - 1.2 mg/dL) 1.4 H Estimated GFR (>60 ml/min) 50 L BUN/Creatinine Ratio (7 - 25 %) 11.4 Glucose (65 - 99 mg/dL) 107 H Lactic Acid (0.7 - 2.1 mmol/L) 4.4 H Calcium (8.4 - 10.2 mg/dL) 9.3 Total Bilirubin (0.2 - 1.3 mg/dL) 2.3 H AST (17 - 59 U/L) 44 ALT (21 - 72 U/L) 28 Alkaline Phosphatase (< 127 U/L) 81 Troponin I (<0.11 ng/ml) 0.05 Total Protein (6.3 - 8.2 g/dL) 7.8 Albumin (3.5 - 5.0 g/dL) 4.1 Globulin (1.9 - 4.2 gm/dL) 3.7 Albumin/Globulin Ratio (1.1 - 2.2 %) 1.1 Hematology CBC w Diff NO MAN DIFF REQ WBC (4.8 - 10.8 /CUMM) 6.9 RBC (4.70 - 6.10 /CUMM) 3.98 L Hgb (14.0 - 18.0 G/DL) 11.5 L Hct (42 - 52 %) 34.4 L MCV (80.0 - 94.0 FL) 86.5 MCH (27.0 - 31.0 PG) 28.9 MCHC (33.0 - 37.0 G/DL) 33.4 RDW (11.5 - 14.5 %) 18.4 H Plt Count (130 - 400 /CUMM) 306 MPV (7.4 - 10.4 FL) 10.1 Gran % (42.2 - 75.2 %) 61.9 Lymphocytes % (20.5 - 51.1 %) 26.4 Monocytes % (1.7 - 9.3 %) 10.8 H Eosinophils % (0 - 5 %) 0.2 Basophils % (0.0 - 2.0 %) 0.7 Absolute Granulocytes (1.4 - 6.5 /CUMM) 4.3 Absolute Lymphocytes (1.2 - 3.4 /CUMM) 1.8 Absolute Monocytes (0.10 - 0.60 /CUMM) 0.7 H Absolute Eosinophils (0.0 - 0.7 /CUMM) 0 Absolute Basophils (0.0 - 0.2 /CUMM) 0 Miscellaneous Phlebotomy Draw Site RIGHT BRACHIAL Toxicology Serum Alcohol (<10 MG/DL) < 10.0 FINDINGS: The heart is of normal size. There is no pericardial effusion. There is neither mediastinal, hilar nor axillary lymphadenopathy. There are no chest wall masses. Review of lung windows demonstrates that there are neither pleural effusions nor pneumothoraces. There are no consolidations. There are no pulmonary parenchymal nodules. The liver is of normal size and attenuation without focal lesions nor intrahepatic biliary ductal dilation. A normal gallbladder is identified. There is no wall thickening or discernible pericholecystic fluid. The spleen, pancreas, adrenal glands are unremarkable. Both kidneys are of normal size and attenuation without hydronephrosis or nephrolithiasis. There is no abdominal free fluid. There is neither mesenteric nor retroperitoneal lymphadenopathy. Normal unopacified loops of small and large bowel are identified. A normal appendix is identified. There is no pelvic free fluid. The urinary bladder is unremarkable. There is neither pelvic nor inguinal lymphadenopathy. There are bilateral fat-containing hernias. Bone windows: Neither sclerotic nor lytic bone lesions are identified. There is moderate degenerative change present throughout the thoracic and lumbar spine. IMPRESSION: No evidence for acute traumatic injury to the thorax, abdomen nor pelvis. DICTATED BY: Lorenzo Wolfe MD DATE/TIME DICTATED:11/08/172016 CT head IMPRESSION: No evidence for acute intracranial injury. No evidence for acute injury to the cervical spine. DICTATED BY: Lorenzo Wolfe MD DATE/TIME DICTATED:11/08/172011 PULVERIZER TENDER:SKYLER Barium swallow IMPRESSION: 1. Moderate esophageal dysmotility is seen with intermittent esophageal spasm at the GE junction leading to delayed esophageal emptying. Findings do not have the appearance of typical achalasia and are more consistent with functional achalasia. 2. No GE reflux or fixed stricture seen. DICTATED BY: Jumana Duff MD DATE/TIME DICTATED:08/30/171522 Ears, Nose, Throat: normal pharynx, normal ENT inspection, hearing grossly normal Neck: normal inspection, supple, full range of motion Respiratory: normal breath sounds, chest non-tender, no respiratory distress, lungs clear Cardiovascular: regular rate/rhythm, normal peripheral pulses Gastrointestinal: normal bowel sounds, soft, non-tender, no organomegaly Back: normal inspection, normal range of motion Extremities: normal inspection, normal capillary refill, normal range of motion Neurologic/Psych: Normal Skin: intact, normal color, warm/dry Patient ambulated without any difficulty when I was there Does seem to have some orthostatic hypotension IMPRESSION * Resolved Syncopal episode with no evidence of seizure, probable orthostatic hypotension versus neurocardiogenic syncope per cardiology. 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 was had previous extensive workup * Previous Sig anemia now with heme positive stool, slowly improving * Recent CABG with Coronary disease status post coronary bypass surgery 2016 with LARSEN to the LAD, saphenous vein graft to the obtuse marginal and PDA, with prior low ejection fraction EF has improved * Post op Afib now maintaining sinus rhythm * HTN history in the past now has normal blood pressure with orthostatic hypotension * OBesity which is improving as he has lost weight, with severe sleep apnea but patient does not wish to use CPAP * 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, creatinine now 1.1 * Bifasicular block and other ekg changes, no pacemaker with no significant bradycardia tachyarrhythmia for pacemaker interrogation in the past * Esophageal dysmotility * Anemia needs follow up, ruleout gi bleed * Probable depression but patient is resistant to taking medications PLAN Cardiology recommendation reviewed continue current medications Use compression stockings As he has had recurrent symptoms will start him on fludrocortisone on a trial basis for few weeks GI evaluation for repeat EGD in the future ENT evaluation today to make sure he does not have any posterior pharyngeal abnormality Eventually would require a neurology evaluation to rule out motor neuron disease as he is losing weight and is not eating and at times he has dysphagia. But patient has never had aspiration episodes Continue statin, aspirin, Celexa. We will follow closely Patient wishes conservative therapy
== END 2017-11-09 14:10 ==
LOC: ERH 19:33 → ERHI 20:57 → ENRESERV 21:05 → ERHI 11-09 13:40
PROVIDERS: Emergency Medicine
DX: R55 Syncope and collapse (principal); I25.10 Atherosclerotic heart disease of native coronary artery without angina pectoris; Z95.1 Presence of aortocoronary bypass graft; I48.91 Unspecified atrial fibrillation; I25.5 Ischemic cardiomyopathy; D64.9 Anemia, unspecified; I12.9 Hypertensive chronic kidney disease with stage 1 through stage 4 chronic kidney disease, or unspecified chronic kidney disease; N18.9 Chronic kidney disease, unspecified; Z79.82 Long term (current) use of aspirin; K22.4 Dyskinesia of esophagus; K21.9 Gastro-esophageal reflux disease without esophagitis; I45.2 Bifascicular block; I95.9 Hypotension, unspecified; F32.9 Major depressive disorder, single episode, unspecified; E66.9 Obesity, unspecified; Z79.899 Other long term (current) drug therapy
CPT/HCPCS: 6090; 74176; 80307; 81001; 87086; 93005; 93010; 96360; 96361; G0378; G0480